=== PATIENT | female | born 1960 | race African-American/Black ===

== ENCOUNTER 2020-08-31 10:20 | Outpatient (REF) | payer MEDICAID, SELFPAY ==
--- NOTE | 2020-08-31 | MM_ITS ---
EXAMINATION: MM SCREENING DIGITAL BREAST TOMOSYNTHESIS, BILATERAL CLINICAL INFORMATION: Screening. Asymptomatic. The lifetime risk of breast cancer based on the Tyrer-Cuzick Model is 5.2%. COMPARISON: Mammography: September 22, 2018 and studies dating back to March 18, 2006 TECHNIQUE: Digital breast tomosynthesis is performed in both the craniocaudal and mediolateral oblique views along with computer-aided detection (CAD). Synthesized 2D images are generated from the tomosynthesis. FINDINGS: There are scattered areas of fibroglandular density (ACR BI-RADS breast composition Category b). There are no significant masses, abnormal calcifications, or other abnormalities. Stable circumscribed density seen within the central lateral aspect of the right breast. MM/MM tomosynthesis screening BI IMPRESSION: There are no significant changes from prior study. ASSESSMENT: BI-RADS 1: Negative RECOMMENDATION: Routine annual mammography screening. This patient's information was entered into a reminder system with a target due date for their next mammogram.
== END 2020-08-31 10:21 | disposition home or self-care (01) ==
LOC: HO.MAMMO 10:20
PROVIDERS: Visit Provider Family Medicine
DX: Z12.31 Encounter for screening mammogram for malignant neoplasm of breast (principal)
CPT/HCPCS: 77063; 77067

== ENCOUNTER → 2020-09-21 12:17 | Outpatient (BNVA) | payer MEDICAID, SELFPAY | PROVIDERS: PCP Family Medicine; Referring Provider Family Medicine; Visit Provider Urology | DX: Z76.89 Persons encountering health services in other specified circumstances (principal) ==

== ENCOUNTER 2020-09-27 09:15 | Outpatient (REF) | payer MEDICAID, SELFPAY ==
--- NOTE | 2020-09-27 | US_ITS ---
EXAMINATION: US RETROPERITONEAL LIMITED (RENAL ONLY) CLINICAL INFORMATION: Kidney cyst. Hematuria. COMPARISON: Renal ultrasound 06/15/2020. Ultrasound abdomen complete 12/09/2019. TECHNIQUE: Real-time imaging of the kidneys. FINDINGS: RIGHT KIDNEY: 12.5 x 4.4 x 4.6 cm (SAG x AP x TRV). The kidney is normal in size, contour, and echogenicity. Renal cortical thickness is normal. No renal calculi or hydronephrosis. There is anechoic cyst with septation upper pole measuring 4.1 x 4.9 x 3.7 cm. On last ultrasound exam it measured 3.6 x 4.8 x 3.4 cm. A midpole cyst measures 0.8 x 0.5 x 0.7 cm. It appears new. LEFT KIDNEY: 10.6 x 5.6 x 6.2 cm (SAG x AP x TRV). The kidney is normal in size, contour, and echogenicity. Renal cortical thickness is normal. No calculi or focal parenchymal lesions. No hydronephrosis. US/US renal BI IMPRESSION: Septated cyst upper pole right kidney, stable. New cyst midpole right kidney. The left kidney is unremarkable.
== END 2020-09-27 09:16 | disposition home or self-care (01) ==
LOC: HO.US 09:15
PROVIDERS: Visit Provider General Practice
DX: R10.9 Unspecified abdominal pain (principal); R31.29 Other microscopic hematuria; N28.1 Cyst of kidney, acquired
CPT/HCPCS: 76775

== ENCOUNTER 2020-12-07 16:24 | Emergency (ER) | payer MEDICAID, SELFPAY ==
[2020-12-07 19:41] VITALS: BP 122/63; PULSE 64; RESP 18; TEMP 37.7; O2SAT 99; BMI 30.4
[2020-12-07 20:02] VITALS: BP 133/73; PULSE 57; RESP 18; TEMP 37.2; O2SAT 99
[2020-12-07 20:15] LABS: COVID-19 Test Positive (Negative); IDNOW Serial# 9DD0AD1C
--- NOTE | 2020-12-07 20:34 | ED_ITS ---
HPI - Abdominal Pain General Chief Complaint: Abdominal Pain Stated Complaint: ABD PAIN Time Seen by Provider: 12/07/20 20:05 Source: patient Mode of arrival: ambulatory Limitations: no limitations History of Present Illness HPI narrative: 60-year-old female has been having upper abdominal pain, nausea, decreased p.o. intake, generalized body ache for the past week, patient was evaluated at the clinic and was told that the stomach virus, patient had several COVID testing done and was negative. No diarrhea, no lower abdominal pain, no chest pain. Patient if she tried to take a deep breath feels tightness/wheezing. Related Data Previous Rx's Medication Instructions Recorded omeprazole magnesium [Prilosec OTC] 20 mg PO BID #30 tab 12/07/20 Allergies Allergy/AdvReac Type Severity Reaction Status Date / Time ENVIRONMENTAL Allergy Intermediate UPPER Uncoded 07/06/20 15:03 RESPIRATORY IRRITATION Review of Systems Review of Systems All other systems are reviewed and are negative Constitutional: Reports as per HPI and Reports no additional constitutional complaints Eyes: Reports as per HPI and Reports no additional eye complaints Reports system reviewed and no additional complaints, except as documented Cardiovascular: Reports as per HPI and Reports no additional cardiovascular complaints Respiratory: Reports as per HPI and Reports no additional respiratory complaints Gastrointestinal: Reports as per HPI and Reports no additional gastrointestinal complaints Genitourinary: Reports no additional female genitourinary complaints Musculoskeletal: Reports no additional musculoskeletal complaints Skin/Breast: Reports system reviewed and no additional complaints, except as docu Psychiatric: Reports no additional psychiatric complaints Endocrine: Reports no additional endocrine complaints Hematologic/Lymphatic: Reports no additional hematologic/lymphatic complaints Allergic/Immunologic: Reports no additional allergic/immunologic complaints Reports system reviewed and no additional complaints, except as documented and Reports Abnormal speech present Physical Exam Vital Signs: Vital Signs: Last Vital Signs Temp 99.0 F 12/07/20 20:02 Pulse 56 12/07/20 21:15 Resp 18 12/07/20 21:15 BP 122/61 12/07/20 21:15 Pulse Ox 100 12/07/20 21:15 Body Mass Index 30.4 Vital signs have been reviewed as appeared to be correct. Blood pressure normal. Heart rate normal. Respiration rate normal. Temperature normal. Oxygen saturation normal. Appearance: Alert. Oriented X3. No acute distress. Head: Normal external exam. Normocephalic. Atraumatic. No Cesar signs noted. No raccoon eyes noted Eyes: PERRLA. EOMI. Conjunctiva and sclera normal. Eyelids normal. ENT: TM's Normal. Pharynx normal. Uvula midline. Moist mucous membranes. No trismus noted. No drooling noted. No muffled voice noted. Neck: Normal inspection. Neck supple. FROM. No adenopathy. Thyroid Normal. No meningeal signs. No neck mass noted. CVS: Normal heart rate and rhythm. Heart sound normal. No murmurs noted. Pulses normal throughout. Respiratory: No respiratory distress. Painless inspiration. Breath sounds normal. No wheezes/rales/rhonchi noted. Chest nontender. No accessory muscle usage noted or decreased air movement noted. Abdomen: Soft with mild tenderness in the epigastric area with no rebound or guarding.. Bowel sounds normal in all 4 quadrants. No distention noted. No organomegaly noted. No visible injury noted. Back: No CVA tenderness. Full range of motion noted. Skin: Skin warm and dry. Normal skin color. Normal skin turgor. No rashes/lesions/lacerations noted. Extremities: No lower extremity edema. Extremities exhibit normal range of motion. Extremities nontender. Neuro: Oriented X 3. No motor deficit. No sensory deficit. Reflexes normal. Course Course Course Narrative: Assessment and plan. 1. Patient tested positive for COVID patient is taking care of her 16-year-old son who is down syndrome and required care patient was advised to self quarantine and isolate herself and for for family or friends to help with caring of her son. Also was advised to test the sun for COVID tomorrow. 2. UA was positive for nitrate but no leuko Estrace was some white blood cells in the urine but patient declined any symptoms of urine infection therefore patient was instructed to drink plenty of fluid we are not going to treat with antibiotic at this point unless if patient develops symptoms. 3. Gastritis patient improved with Pepcid/a GI cocktail in the emergency department will discharge home with Prilosec and follow up with manager financial in 2-3 weeks (after finisher self-quarantine). MDM - Abdominal Pain Lab Data Result diagrams: 12/07/20 20:48 12/07/20 21:20 Labs: Lab Results 12/07/20 12/07/20 12/07/20 Range/Units 19:53 20:41 20:48 WBC 4.6 L (4.8-10.8) X10*3/uL RBC 4.79 (4.20-5.50) X10*6/uL Hgb 13.8 (12.0-16.0) g/dl Hct 42.1 (37-47) % MCV 87.9 (80-98) fL MCH 28.8 (27.0-33.0) pg MCHC 32.8 (31.0-35.0) g/dl RDW 11.9 (11.0-16.0) % Plt Count 180 (160-400) X10*3/uL MPV 10.5 (9.4-12.3) fL Immature Gran % (Auto) 0.2 (0.0-0.4) % Neut % (Auto) 62.0 (45-73) % Lymph % (Auto) 29.3 (20-40) % Barnes % (Auto) 8.3 (2-11) % Eos % (Auto) 0.0 (0-4) % Baso % (Auto) 0.2 (0-2) % Lymph # (Auto) 1.3 (1.2-4.9) X10*3/uL Barnes # (Auto) 0.4 (0.1-1.2) X10*3/uL Eos # (Auto) 0.0 (0.0-0.4) X10*3/uL Baso # (Auto) 0.0 (0.0-0.2) X10*3/uL Abs Immat Gran (auto) 0.01 (0.00-0.03) X10*3/uL Absolute Neuts (auto) 2.8 (2.0-8.3) X10*3/uL Absolute Nucleated RBC 0.000 (0.0-0.012) X10*3/uL Nucleated RBC % (auto) 0.0 (0.0-0.2) /100WBC Sodium (135-145) mmol/L Potassium (3.3-5.1) mmol/L Chloride (96-108) mmol/L Carbon Dioxide (22-29) mmol/L Anion Gap (12-20) BUN (9-16) mg/dL Creatinine (0.5-1.4) mg/dL Estim Creat Clear Calc Estimated GFR Random Glucose (60-115) mg/dL Calcium (8.4-10.2) mg/dL Total Bilirubin (0.0-1.0) mg/dL Direct Bilirubin (0.0-0.5) mg/dL AST (5-31) U/L ALT (0-31) U/L Alkaline Phosphatase (39-117) U/L Troponin I High Sens (<3.5-17.0) ng/L Total Protein (6.5-8.0) g/dL Albumin (3.5-5.0) g/dL Lipase (8-78) U/L Urine Color YELLOW Urine Appearance CLOUDY Urine pH 6.0 (5.0-8.0) Ur Specific [place] >= 1.030 H (1.005-1.025) Urine Protein TRACE (NEG-TRACE) MG/DL Urine Glucose (UA) NEG (NEG) MG/DL Urine Ketones 40 (NEG) MG/DL Urine Blood 2+ H (NEG) Urine Nitrite POS H (NEG) Ur Leukocyte Esterase NEG (NEG) Urine RBC 1-4 (0) /HPF Urine WBC 5-9 H (0-4) /HPF Ur Squamous Epith Cells TRACE /LPF Urine Bacteria 3+ /LPF COVID-19 ([facility]) Positive A (Negative) COVID-19 Clin Com See Note 12/07/20 12/07/20 Range/Units 20:48 21:20 WBC (4.8-10.8) X10*3/uL RBC (4.20-5.50) X10*6/uL Hgb (12.0-16.0) g/dl Hct (37-47) % MCV (80-98) fL MCH (27.0-33.0) pg MCHC (31.0-35.0) g/dl RDW (11.0-16.0) % Plt Count (160-400) X10*3/uL MPV (9.4-12.3) fL Immature Gran % (Auto) (0.0-0.4) % Neut % (Auto) (45-73) % Lymph % (Auto) (20-40) % Barnes % (Auto) (2-11) % Eos % (Auto) (0-4) % Baso % (Auto) (0-2) % Lymph # (Auto) (1.2-4.9) X10*3/uL Barnes # (Auto) (0.1-1.2) X10*3/uL Eos # (Auto) (0.0-0.4) X10*3/uL Baso # (Auto) (0.0-0.2) X10*3/uL Abs Immat Gran (auto) (0.00-0.03) X10*3/uL Absolute Neuts (auto) (2.0-8.3) X10*3/uL Absolute Nucleated RBC (0.0-0.012) X10*3/uL Nucleated RBC % (auto) (0.0-0.2) /100WBC Sodium 138 (135-145) mmol/L Potassium 3.8 (3.3-5.1) mmol/L Chloride 103 (96-108) mmol/L Carbon Dioxide 28 (22-29) mmol/L Anion Gap 11 L (12-20) BUN 12 (9-16) mg/dL Creatinine 0.77 (0.5-1.4) mg/dL Estim Creat Clear Calc 88.5 Estimated GFR > 60 Random Glucose 86 (60-115) mg/dL Calcium 7.9 L (8.4-10.2) mg/dL Total Bilirubin 0.5 (0.0-1.0) mg/dL Direct Bilirubin 0.2 (0.0-0.5) mg/dL AST 22 (5-31) U/L ALT 19 (0-31) U/L Alkaline Phosphatase 95 (39-117) U/L Troponin I High Sens 9.1 (<3.5-17.0) ng/L Total Protein 6.3 L (6.5-8.0) g/dL Albumin 3.7 (3.5-5.0) g/dL Lipase 13 (8-78) U/L Urine Color Urine Appearance Urine pH (5.0-8.0) Ur Specific [place] (1.005-1.025) Urine Protein (NEG-TRACE) MG/DL Urine Glucose (UA) (NEG) MG/DL Urine Ketones (NEG) MG/DL Urine Blood (NEG) Urine Nitrite (NEG) Ur Leukocyte Esterase (NEG) Urine RBC (0) /HPF Urine WBC (0-4) /HPF Ur Squamous Epith Cells /LPF Urine Bacteria /LPF COVID-19 ([facility]IS) (Negative) COVID-19 Clin Com Discharge Plan Discharge Clinical Impression: COVID-19 virus infection Gastritis Qualifiers: Gastritis type: unspecified gastritis Chronicity: acute Gastritis bleeding: without bleeding Qualified Code(s): K29.00 - Acute gastritis without bleeding Patient Disposition: Home, Self-Care Instructions: Gastritis (ED), COVID-19 (Coronavirus Disease 2019) (ED) Additional Instructions: Self-quarantine/isolation, frequent handwashing, use face mask at all times. Prescriptions: New omeprazole magnesium [Prilosec OTC] 20 mg tablet,delayed release (DR/EC) 20 mg PO BID Qty: 30 RF: 0 Referrals: Colleen Colon DO [Primary Care Provider] - 2 weeks Meng Randall MD [Physician] - 2 days [facility] Past Medical History Medical History Patient denies medical problems Social History Social History Advance Directives: No Advance Directives Information Provided: No
[2020-12-07] MEDS: Magnesium Hydrox/Alum Hydrox 30 ML ORAL.SUSP PO (20:49)
[2020-12-07] MEDS: Lidocaine HCl Viscous 2 % 15 ML SOLUTION 10 ML MUCOUS MEM (20:49)
[2020-12-07] MEDS: Famotidine/PF 20 MG/2 ML VIAL IVPUSH (20:50)
[2020-12-07] MEDS: ondansetron HCL 4 MG/2 ML VIAL IVPUSH (20:50)
[2020-12-07] MEDS: 0.9 % Sodium Chloride 1,000 ML 999 ML IVCONT (20:50)
[2020-12-07 20:56] LABS: MANUAL DIFF FLAG NO
[2020-12-07 20:58] LABS: Glucose Urine UA NEG (NEG); Leukocyte Esterase Urine NEG (NEG); Nitrite Urine POS (NEG); Specific Gravity - Urine >= 1.030 (1.005-1.025); UACC Culture Trigger YES; Urine Blood 2+ (NEG); Urine Ketones 40 MG/DL (NEG); Urine Protein TRACE MG/DL (NEG-TRACE)
[2020-12-07 20:59] LABS: Appearance Urine CLOUDY; Color Urine YELLOW
[2020-12-07 21:02] LABS: Basophils Percent Auto 0.2 % (0-2); Hematocrit 42.1 % (37-47); Hemoglobin 13.8 g/dl (12.0-16.0); Imm Gran Abs Auto 0.01 X10*3/uL (0.00-0.03); Imm Gran Pct Auto 0.2 % (0.0-0.4); Lymphocytes Absolute Auto 1.3 X10*3/uL (1.2-4.9); Lymphocytes Percent Auto 29.3 % (20-40); Mean Corpuscular HGB Conc 32.8 g/dl (31.0-35.0); Mean Corpuscular Hemoglobin 28.8 pg (27.0-33.0); Mean Corpuscular Volume 87.9 fL (80-98); Mean Platelet Volume 10.5 fL (9.4-12.3); Monocytes Absolute Auto 0.4 X10*3/uL (0.1-1.2); Monocytes Percent Auto 8.3 % (2-11); Neutrophils Absolute Auto 2.8 X10*3/uL (2.0-8.3); Platelet Count 180 X10*3/uL (160-400); Red Blood Count 4.79 X10*6/uL (4.20-5.50); Red Cell Distribution Width 11.9 % (11.0-16.0); White Blood Count 4.6 X10*3/uL (4.8-10.8)
[2020-12-07 21:13] LABS: Bacteria Urine 3+ /LPF; Squamous Epithelial Cell Urine TRACE /LPF
[2020-12-07 21:15] VITALS: BP 122/61; PULSE 56; RESP 18; O2SAT 100
[2020-12-07 21:37] LABS: Troponin-I High Sensitivity 9.1 ng/L (<3.5-17.0)
[2020-12-07 21:55] LABS: Alanine Aminotransferase 19 U/L (0-31); Albumin Level 3.7 g/dL (3.5-5.0); Alkaline Phosphatase 95 U/L (39-117); Anion Gap 11 (12-20); Aspartate Amino Transferase 22 U/L (5-31); Bilirubin Direct 0.2 mg/dL (0.0-0.5); Bilirubin Total 0.5 mg/dL (0.0-1.0); Blood Urea Nitrogen 12 mg/dL (9-16); Calcium 7.9 mg/dL (8.4-10.2); Carbon Dioxide 28 mmol/L (22-29); Chloride 103 mmol/L (96-108); Creatinine Clr Calc Pharmacy 88.5; Estimated Glomerular Filt Rate > 60; Glucose Random 86 mg/dL (60-115); Lipase 13 U/L (8-78); Potassium 3.8 mmol/L (3.3-5.1); Sodium 138 mmol/L (135-145); Total Protein 6.3 g/dL (6.5-8.0)
[2020-12-07 22:57] VITALS: BP 139/70; PULSE 62; RESP 16; O2SAT 97
== END 2020-12-07 23:20 | disposition home or self-care (01) ==
PROVIDERS: Emergency Provider Emergency Medicine; PCP Family Medicine
DX: U07.1 COVID-19 (principal); K29.00 Acute gastritis without bleeding
CPT/HCPCS: 36415; 80048; 80076; 81001; 81003; 83690; 84484; 85025; 87086; 87635; 96361; 96374; 96375; 99284; J2405

== ENCOUNTER 2021-08-16 09:02 | Outpatient (REF) | payer MEDICAID, SELFPAY ==
--- NOTE | ~2021-08-16 | MR_ITS ---
EXAMINATION: MR LUMBAR SPINE WITHOUT CONTRAST CLINICAL INFORMATION: Persistent low back pain radiating into lower extremities. COMPARISON: Lumbar spine radiographs 11/17/2019. TECHNIQUE: MRI of the lumbar spine was obtained using routine sequences without contrast. FINDINGS: Alignment is normal. Vertebral body heights are preserved. No acute bone marrow signal changes. There is slight loss of intervertebral disc height and T2 signal intensity at L5-S1 related to disc degeneration. The tip of the conus medullaris is located at L1-L2. No mass effect on the conus. Visualized distal cord signal intensity is normal. At L1-L2 and L2-L3 the annular contours are normal. No canal or neuroforaminal compromise at these 2 levels. At L3-L4 there is a slightly bulging disc and bilateral facet degenerative change. No canal stenosis. Asymmetric narrowing of the left subarticular zone causing subtle abutment on the left traversing L4 nerve roots. No foraminal nerve root compression. At L4-L5 there is a slightly bulging disc. Bilateral facet degenerative change. No canal stenosis. Asymmetric narrowing of the left subarticular zone causes abutment of left traversing L5 nerve roots. No foraminal nerve root compression. At L5-S1 there is a large central extrusion causing compression of both traversing S1 nerve roots. There is mild mass effect on the left L5 foraminal nerve root. Limited visualization of the retroperitoneal anatomy reveals a large well marginated benign-appearing cystic lesion near the upper pole of the right kidney. Psoas and paraspinal muscle groups are symmetric. MR/MR lumbar spine wo con IMPRESSION: There is a large central extrusion at L5-S1 causing compression of both traversing S1 nerve roots. There is also partial effacement of perineural fat at this level with mild mass effect on the left L5 foraminal nerve root. Otherwise no canal or neuroforaminal compromise within the lumbar spine.
== END 2021-08-16 09:03 | disposition home or self-care (01) ==
LOC: HO.MRI 09:02
PROVIDERS: PCP Family Medicine; Visit Provider Family Medicine
DX: M54.42 Lumbago with sciatica, left side (principal)
CPT/HCPCS: 72148

== ENCOUNTER 2021-09-18 09:55 | Outpatient (REF) | payer MEDICAID, SELFPAY ==
--- NOTE | ~2021-09-18 | US_ITS ---
EXAMINATION: US RETROPERITONEAL LIMITED (RENAL ONLY) CLINICAL INFORMATION: Calculus of kidney. COMPARISON: Renal ultrasound 09/27/2020 and 06/15/2020. TECHNIQUE: Real-time imaging of the kidneys. FINDINGS: RIGHT KIDNEY: 12.0 x 4.4 x 4.0 cm (SAG x AP x TRV). The kidney is normal in size, contour, and echogenicity. Renal cortical thickness is normal. No renal calculi or hydronephrosis. There is anechoic septated cyst in the upper pole laterally measuring 4.7 x 4.8 x 4.3 cm. Previously it measured 4.1 x 4.9 x 2.7 seen. Anechoic cyst with posterior wall in the mid pole measures 0.9 x 0.8 x 0.7 cm. There is calcification visualized at this time and likely a complex cyst. Previously it measured 0.8 x 0.5 x 0.7 cm. LEFT KIDNEY: 10.3 x 5.1 x 4.5 cm (SAG x AP x TRV). The kidney is normal in size, contour, and echogenicity. Renal cortical thickness is normal. No calculi or focal parenchymal lesions. No hydronephrosis. US/US renal BI IMPRESSION: 2 complex cysts in the upper pole and midpole right kidney. No echogenic stones or hydronephrosis in either kidney.
== END 2021-09-18 09:56 | disposition home or self-care (01) ==
LOC: HO.US 09:55
PROVIDERS: PCP Family Medicine; Visit Provider Urology
DX: N20.0 Calculus of kidney (principal); N28.1 Cyst of kidney, acquired
CPT/HCPCS: 76775

== ENCOUNTER 2022-01-23 10:15 | Outpatient (REF) | payer MEDICAID, SELFPAY ==
--- NOTE | ~2022-01-23 | MM_ITS ---
EXAMINATION: MM SCREENING DIGITAL BREAST TOMOSYNTHESIS, BILATERAL CLINICAL INFORMATION: Screening. Asymptomatic. The lifetime risk of breast cancer based on the Tyrer-Cuzick Model is 5%. COMPARISON: Mammography: 08/31/2020, 09/22/2018, 08/13/2017 TECHNIQUE: Digital breast tomosynthesis is performed in both the craniocaudal and mediolateral oblique views along with computer-aided detection (CAD). Synthesized 2D images are generated from the tomosynthesis. FINDINGS: There are scattered areas of fibroglandular density (ACR BI-RADS breast composition Category b). There are no significant masses, abnormal calcifications, or other abnormalities. Parenchymal pattern is similar to prior studies. No developing density. MM/MM tomosynthesis screening BI IMPRESSION: No mammographic evidence of malignancy. ASSESSMENT: BI-RADS 1: Negative RECOMMENDATION: Routine annual mammography screening. This patient's information was entered into a reminder system with a target due date for their next mammogram.
== END 2022-01-23 10:16 | disposition home or self-care (01) ==
LOC: HO.MAMMO 10:15
PROVIDERS: Visit Provider Family Medicine
DX: Z12.31 Encounter for screening mammogram for malignant neoplasm of breast (principal)
CPT/HCPCS: 77063; 77067

== ENCOUNTER 2022-04-27 08:14 | Emergency (ER) | payer MEDICAID, SELFPAY ==
--- NOTE | ~2022-04-27 | XR_ITS ---
EXAMINATION: XR CHEST CLINICAL INFORMATION: Chest pain COMPARISON: CXR from 04/02/2019 TECHNIQUE: Frontal view of the chest was obtained. FINDINGS: Lungs are well-inflated and clear. Trachea is midline in position. No interstitial disease, consolidation or mass. No pleural effusion or pneumothorax. Cardiac silhouette and pulmonary vessels are normal in size. The mediastinum and sonja have normal contour. The visualized bones and upper abdomen are unremarkable. XR/XR chest 1V IMPRESSION: No acute cardiopulmonary abnormality.
[2022-04-27 08:17] VITALS: BP 137/72; PULSE 63; RESP 18; TEMP 36.8; O2SAT 99; BMI 32.5
--- NOTE | 2022-04-27 08:18 | ECG_ITS ---
Test Reason : CHEST PAIN Blood Pressure : / mmHG Vent. Rate : 057 BPM Atrial Rate : 057 BPM P-R Int : 154 ms QRS Dur : 080 ms QT Int : 416 ms P-R-T Axes : 019 -20 -02 degrees QTc Int : 404 ms Sinus bradycardia Minimal voltage criteria for LVH, may be normal variant ( R in aVL ) Borderline ECG When compared with ECG of 25-APR-2016 13:30, Nonspecific T wave abnormality no longer evident in Anterior leads Referred By: Generic ED Physician Electronically Signed By:Jefry Murillo
[2022-04-27 10:07] LABS: Hematocrit 38.7 % (37.0-47.0); Hemoglobin 12.8 g/dl (12.0-16.0); Mean Corpuscular HGB Conc 33.1 g/dl (31.0-35.0); Mean Corpuscular Hemoglobin 28.3 pg (27.0-33.0); Mean Corpuscular Volume 85.4 fL (80.0-98.0); Mean Platelet Volume 10.3 fL (9.4-12.3); Platelet Count 218 X10*3/uL (160-400); Red Blood Count 4.53 X10*6/uL (4.20-5.50); Red Cell Distribution Width 12.6 % (11.0-16.0); White Blood Count 7.4 X10*3/uL (4.8-10.8)
[2022-04-27 10:35] LABS: Anion Gap 12 (12-20); Blood Urea Nitrogen 17 mg/dL (9-16); Calcium 9.3 mg/dL (8.4-10.2); Carbon Dioxide 27 mmol/L (22-29); Chloride 104 mmol/L (96-108); Creatinine Clr Calc Pharmacy 74.8; Estimated Glomerular Filt Rate > 60; Glucose Random 97 mg/dL (60-115); Potassium 4.4 mmol/L (3.3-5.1); Sodium 139 mmol/L (135-145)
[2022-04-27 10:40] LABS: Troponin-I High Sensitivity 5.4 ng/L (<3.5-17.0)
--- NOTE | 2022-04-27 10:57 | ED_ITS ---
HPI - Chest Pain General Chief Complaint: Chest Pain Stated Complaint: chest pain on left side Time Seen by Provider: 04/27/22 10:57 History of Present Illness HPI narrative: Patient complains of left-sided chest pain worse with movement and when she touches it on the left side of her chest, it started at 04:00 o'clock in the morning and has been continuous not waxing and waning The pain is a sharp pain pain with no associated symptoms, no dizziness, no fainting no feeling faint no palpitations no shortness of breath no exertional symptoms no sweating from the forehead no nausea no vomiting The pain continues unchanged on arrival to the ER, she does have a history of a similar episode in the past She also has a history of a slow heart rate and has been seen by Cardiology for this and was told it is normal for her and most likely genetic Related Data Previous Rx's Medication Instructions Recorded omeprazole magnesium 20 mg 20 mg PO BID #30 tabs 12/07/20 tablet,delayed release (Prilosec OTC) omeprazole magnesium 20 mg 20 mg PO BID #30 tabs 12/07/20 tablet,delayed release (Prilosec OTC) acetaminophen 500 mg tablet 1,000 mg PO QID PRN pain #30 tabs 04/27/22 naproxen 500 mg tablet (Naprosyn) 500 mg PO BID PRN pain #14 tabs 04/27/22 Allergies Allergy/AdvReac Type Severity Reaction Status Date / Time ENVIRONMENTAL Allergy Intermediate UPPER Uncoded 07/06/20 15:03 RESPIRATORY IRRITATION Review of Systems Review of Systems: Positive for left-sided chest pain Negatives are no fever no chills no dizziness weakness no fainting no feeling faint no nausea no vomiting no sweating no diaphoresis no relation to exertion no shortness of breath no difficulty breathing no abdominal pain no nausea vomiting or diarrhea no leg swelling no calf pain no skin rash no numbness or weakness Yes all other systems are reviewed and are negative PMFSH Past Medical History Source: nursing notes reviewed Medical History Patient denies medical problems Social History Social History Advance Directives: Yes Advance Directives Information Provided: Yes Advance Directives on File: No Physical Exam Vital Signs: Vital Signs: Last Vital Signs Temp 98.2 F 04/27/22 08:17 Pulse 63 04/27/22 08:17 Resp 18 04/27/22 08:17 BP 137/72 04/27/22 08:17 Pulse Ox 99 04/27/22 08:17 O2 Del Method 04/27/22 08:17 BMI result Body Mass Index 32.5 General appearance is comfortable no acute distress The eyes pupils equal round reactive to light The neck is supple The chest is clear to auscultation bilateral There is tenderness to the left side of the chest just above the breast, with no skin changes, pain is also reproduced with twisting certain ways which causes pain in that area of her chest, there was no pleuritic component it did not hurt to take a deep breath Heart no murmur auscultated The abdomen soft nontender The extremities no edema no calf tenderness no calf swelling The skin no diaphoresis no rashes Neuro no focal deficits Course Course Course Narrative: Initial EKG was a normal sinus rhythm with a rate of 64, normal intervals, there are no acute ischemic changes no acute ST elevations no acute T-wave changes, EKG was compared with EKG done April 2016 and was the same Chest x-ray was normal Initial troponin was 5.4 and repeat was 4.7 No other significant lab abnormality Patient remains comfortable with mild reproducible chest pain throughout visit, on vital sign check her pulse was now 44 with no associated symptoms and EKG was done which showed a sinus bradycardia rate 45 and again without any evidence of any acute ischemic changes Case was discussed withdr tobias was in agreement that this is very unlikely an acute ischemic event and advised discharge the patient after consulting with her academic records specialist I consulted the academic records specialist telemetry monitor at [facility] cardiology dr negron who agreed that patient should be discharged and follow with primary doctor and Cardiology and this is likely musculoskeletal MDM - Chest Pain Lab Data Result diagrams: 04/27/22 09:52 04/27/22 09:52 Labs: Lab Results 04/27/22 04/27/22 04/27/22 Range/Units 09:52 09:52 09:52 WBC 7.4 (4.8-10.8) X10*3/uL RBC 4.53 (4.20-5.50) X10*6/uL Hgb 12.8 (12.0-16.0) g/dl Hct 38.7 (37.0-47.0) % MCV 85.4 (80.0-98.0) fL MCH 28.3 (27.0-33.0) pg MCHC 33.1 (31.0-35.0) g/dl RDW 12.6 (11.0-16.0) % Plt Count 218 (160-400) X10*3/uL MPV 10.3 (9.4-12.3) fL Absolute Nucleated RBC 0.000 (0.0-0.012) X10*3/uL Nucleated RBC % (auto) 0.0 (0.0-0.2) /100WBC Sodium 139 (135-145) mmol/L Potassium 4.4 (3.3-5.1) mmol/L Chloride 104 (96-108) mmol/L Carbon Dioxide 27 (22-29) mmol/L Anion Gap 12 (12-20) BUN 17 H (9-16) mg/dL Creatinine 0.90 (0.5-1.4) mg/dL Estim Creat Clear Calc 74.8 Estimated GFR > 60 Random Glucose 97 (60-115) mg/dL Calcium 9.3 D (8.4-10.2) mg/dL Troponin I High Sens 5.4 (<3.5-17.0) ng/L 04/27/22 Range/Units 13:28 WBC (4.8-10.8) X10*3/uL RBC (4.20-5.50) X10*6/uL Hgb (12.0-16.0) g/dl Hct (37.0-47.0) % MCV (80.0-98.0) fL MCH (27.0-33.0) pg MCHC (31.0-35.0) g/dl RDW (11.0-16.0) % Plt Count (160-400) X10*3/uL MPV (9.4-12.3) fL Absolute Nucleated RBC (0.0-0.012) X10*3/uL Nucleated RBC % (auto) (0.0-0.2) /100WBC Sodium (135-145) mmol/L Potassium (3.3-5.1) mmol/L Chloride (96-108) mmol/L Carbon Dioxide (22-29) mmol/L Anion Gap (12-20) BUN (9-16) mg/dL Creatinine (0.5-1.4) mg/dL Estim Creat Clear Calc Estimated GFR Random Glucose (60-115) mg/dL Calcium (8.4-10.2) mg/dL Troponin I High Sens 4.7 (<3.5-17.0) ng/L Discharge Plan Discharge Clinical Impression: Chest pain Patient Disposition: Home, Self-Care Additional Instructions: EKG did not show any evidence of a heart attack Blood tests again did not show signs of a heart attack and your history and physical exam are not consistent with heart attack Case was discussed with academic records specialist at [facility] who also agreed that this is likely musculoskeletal pain in the chest wall as it is easy to reproduce and okay to follow as an outpatient with her academic records specialist and DrGema Return any time for worsening chest pain, exertional symptoms, shortness of breath, fainting or feeling faint, any worse condition or any concerns Prescriptions: New acetaminophen 500 mg tablet 1,000 mg PO QID PRN (Reason: pain) Qty: 30 0RF naproxen [Naprosyn] 500 mg tablet 500 mg PO BID PRN (Reason: pain) Qty: 14 0RF No Action omeprazole magnesium [Prilosec OTC] 20 mg tablet,delayed release (DR/EC) 20 mg PO BID Qty: 30 0RF omeprazole magnesium [Prilosec OTC] 20 mg tablet,delayed release (DR/EC) 20 mg PO BID Qty: 30 0RF
--- NOTE | 2022-04-27 13:31 | ECG_ITS ---
Test Reason : BRADYCARDIA Blood Pressure : / mmHG Vent. Rate : 045 BPM Atrial Rate : 045 BPM P-R Int : 198 ms QRS Dur : 080 ms QT Int : 462 ms P-R-T Axes : 029 -22 -21 degrees QTc Int : 399 ms Sinus bradycardia Minimal voltage criteria for LVH, may be normal variant ( R in aVL ) Nonspecific T wave abnormality Abnormal ECG When compared with ECG of 27-APR-2022 08:14, Nonspecific T wave abnormality now evident in Anterior leads Referred By: Jorge Hennessy Electronically Signed By:Jefry Murillo
[2022-04-27 13:55] LABS: Troponin-I High Sensitivity 4.7 ng/L (<3.5-17.0)
[2022-04-27] MEDS: Ibuprofen 600 MG TABLET PO (14:44)
== END 2022-04-27 14:56 | disposition home or self-care (01) ==
PROVIDERS: Physician Assistant Medical; Emergency Provider Emergency Medicine; PCP Family Medicine
DX: R07.9 Chest pain, unspecified (principal)
CPT/HCPCS: 36415; 71045; 80048; 84484; 85027; 93005; 99283; 99284

== ENCOUNTER 2022-05-14 09:57 | Outpatient (REF) | payer MEDICAID, SELFPAY ==
--- NOTE | ~2022-05-14 | XR_ITS ---
EXAMINATION: XR FOOT, RIGHT XR FOOT, LEFT CLINICAL INFORMATION: Pain bilateral feet COMPARISON: Radiographs right foot 01/10/2017. TECHNIQUE: Each foot is imaged in 3 views. There are total of 6 views. FINDINGS: Right: No fracture, dislocation, destructive process. Normal bony mineralization. The retrocalcaneal recess is preserved. There are bulky posterior and plantar calcaneal spurs, increased from prior exam 2017. The midfoot shows some whiskering at the lateral base fifth metatarsal likely related to insertion peroneus longus. There are osteoarthritic changes first MTP with bulky medial osteophytes, bunion, and increased hallux valgus of approximately 25 degrees. There is no erosive change. The remainder of the MTP and interphalangeal joints are unremarkable. Left: No fracture, dislocation, destructive process. Normal bony mineralization. The retrocalcaneal recess is preserved. There are bulky posterior and smaller plantar calcaneal spurs. There are osteoarthritic changes first MTP with bulky medial and smaller lateral osteophytes, bunion, and hallux valgus of approximately 23 degrees. There is no erosive change. The remainder of the MTP and interphalangeal joints are unremarkable. XR/XR foot LT min 3V IMPRESSION: -Bilateral posterior and plantar calcaneal spurs. 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
--- NOTE | ~2022-05-14 | XR_ITS ---
EXAMINATION: XR FOOT, RIGHT XR FOOT, LEFT CLINICAL INFORMATION: Pain bilateral feet COMPARISON: Radiographs right foot 01/10/2017. TECHNIQUE: Each foot is imaged in 3 views. There are total of 6 views. FINDINGS: Right: No fracture, dislocation, destructive process. Normal bony mineralization. The retrocalcaneal recess is preserved. There are bulky posterior and plantar calcaneal spurs, increased from prior exam 2017. The midfoot shows some whiskering at the lateral base fifth metatarsal likely related to insertion peroneus longus. There are osteoarthritic changes first MTP with bulky medial osteophytes, bunion, and increased hallux valgus of approximately 25 degrees. There is no erosive change. The remainder of the MTP and interphalangeal joints are unremarkable. Left: No fracture, dislocation, destructive process. Normal bony mineralization. The retrocalcaneal recess is preserved. There are bulky posterior and smaller plantar calcaneal spurs. There are osteoarthritic changes first MTP with bulky medial and smaller lateral osteophytes, bunion, and hallux valgus of approximately 23 degrees. There is no erosive change. The remainder of the MTP and interphalangeal joints are unremarkable. XR/XR foot RT min 3V IMPRESSION: -Bilateral posterior and plantar calcaneal spurs. 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
== END 2022-05-14 09:58 | disposition home or self-care (01) ==
LOC: HO.XRAY 09:57
PROVIDERS: Absent Provider Emergency Medicine; PCP Family Medicine; Visit Provider Family Medicine
DX: M79.671 Pain in right foot (principal); M79.672 Pain in left foot
CPT/HCPCS: 73630

== ENCOUNTER → 2022-07-24 08:58 | Outpatient (BNVA) | payer MEDICAID, SELFPAY | PROVIDERS: PCP Family Medicine; Referring Provider Family Medicine; Visit Provider Internal Medicine | DX: R07.2 Precordial pain (principal) | CPT/HCPCS: 99202 ==

== ENCOUNTER → 2022-08-15 09:59 | Outpatient (REF) | payer MEDICAID, SELFPAY ==
--- NOTE | 2022-08-15 10:03 | CA_ITS ---
Acquisition Time: 2022-08-15 10:32:40 Total Exercise Time: 00:04:59 Test Indications: cp Medications: see chart Protocol: PETERSON Max HR: 151 BPM 95% of Pred: 158 BPM Max BP: 190/108 mmHG Max Work Load: 6.9 METS Exercise stress test with exercise 4 min 59 sec of Peterson protocol, achieving 95% MPHR, with report of fatigue and request to stop, with mild sob and no chest discomfort, with PACs, isolated PVCs, two ventricular cuplets and one ventricular triplet ( PVCs ocurred during exercise and early recovery), with normotensive response to exercise, without EKG changes meeting criteria for ischemia during exercise, in later recovery there is T wave invesions leads III, aVF, V3-V6. Will order an exercise nuclear stress test for further evaluation. Test reviewed with Dr Meneses. Referred By: Александр Orosco Overread By: EDY RUIZ
== END ==
LOC: HO.CARD 09:59
PROVIDERS: PCP Family Medicine; Visit Provider Internal Medicine
DX: R07.2 Precordial pain (principal)
CPT/HCPCS: 93017

== ENCOUNTER → 2022-09-04 07:41 | Outpatient (REF) | payer MEDICAID, SELFPAY ==
--- NOTE | ~2022-09-04 | NM_ITS ---
Lexiscan Myocardial perfusion study Indication: Chest pain, assess for coronary disease and ischemia Technique: The patient was brought in for a Lexiscan perfusion study on 09/04/2022 and was injected 0.4 mg of Lexiscan intravenously. Within a minute of this injection 30 mCi of sestamibi was given intravenously. Images were obtained using the SPECT gamma camera interlaced with the gating device. Images were obtained in supine position. Resting perfusion study was performed on 09/04/2022. Patient was administered 10 mCi of sestamibi intravenously at rest. Images were then obtained in supine position. Images were processed with the software and compared side to side in short axis, horizontal long axis and vertical long axis views. Total DLP 100mGy-cm. Findings: Raw acquisition reviewed. The stress perfusion study showed mildly diminished tracer uptake in the distal part of anterior wall. There is improvement with CT attenuation correction and hence could be from soft tissue attenuation artifact. The gated study shows normal LV systolic function with calculated LVEF of 56%. LV cavity is normal in size. The gated study shows normal wall thickening and contraction of segments. Resting study shows diminished tracer uptake along the mid to distal anterior wall and appears worse compared to stress acquisition. Probably, artifactual. Gating at rest reveals normal wall motion with ejection fraction at 55%. The findings are consistent with fixed defect in the distal part of anterior wall likely from soft tissue attenuation artifact. No clear reversible defects. NM/NM tonya perf SPECT rest & str Impression: 1. Myocardial perfusion imaging study shows no clear evidence of any ischemia or infarction. Likely normal perfusion. 2. Gated LVEF is 56% during stress and 55% during rest. 3. Transient ischemic dilatation not present. EKG component of the test reported separately.
--- NOTE | 2022-09-04 07:45 | CA_ITS ---
Acquisition Time: 2022-09-04 09:01:45 Total Exercise Time: 00:05:01 Test Indications: Chest Pain Medications: ASA CETIRIZINE Protocol: PETERSON Max HR: 153 BPM 96% of Pred: 158 BPM Max BP: 186/080 mmHG Max Work Load: 6.1 METS Exercise stress test with exercise 5 min 1 sec of Peterson protocol, achieving 96% MPHR, with fatigue, mild to mod sob and need to stop exercise, no chest discomfort, with isolated PACs, atrial cuplets, isolated PVCs, with normotensive response to exercise, with artifact at peak exercise, without EKG changes of ischemia t 41 sec recovery, then with borderline ST depressionsinferolateral leads in recovery. In recovery there were 2 breif episodes of accelerated idioventricular rhythm ( 3 beats, then 6 beats), asymptomatic. Nuclear images pending. Test reviewed with Dr Meneses Referred By: Luann Cosby Overread By: LUANN COSBY
--- NOTE | 2022-09-04 07:45 | CA_ITS ---
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 Normal LV systolic function with grade 1 diastolic dysfunction 2. Normal cardiac valvular Doppler 3. Normal RV systolic pressure 4. No pericardial effusion Findings Left Ventricle Normal left ventricular size, thickness, and systolic function. The visually estimated ejection fraction is between 60-65%. Spectral Doppler is indicative of an impaired relaxation filling pattern. E/E prime ratio is <8, consistent with normal filling pressures. Evidence suggests grade I (mild) diastolic dysfunction. Peak GLS is -20.2%, which is normal Right Ventricle Normal right ventricular cavity size and systolic function. Atria Both atria are normal in size. There is no evidence of interatrial shunt. Aortic Valve Normal aortic valve structure and function. There is no aortic valve stenosis. There is no aortic valve regurgitation. Mitral Valve There is mild anterior mitral leaflet thickening. There is mild mitral valve regurgitation. There is no mitral valve stenosis. Pulmonic Valve The pulmonic valve is likely normal. There is trace pulmonic valve regurgitation. Tricuspid Valve Normal tricuspid valve structure. There is trace tricuspid valve regurgitation. The right ventricular systolic pressure is normal. The right ventricular systolic pressure is 25 mmHg. Normal right atrial pressure. There is no evidence of pulmonary hypertension. Great Vessels All visible segments of the aorta are normal in size. The pulmonary artery was not well visualized. Venous The inferior vena cava is normal in size and collapses greater than 50% with inspiration. Pericardium/Pleural There is no evidence of pericardial effusion. Prior Study Comparison No significant change compared to prior study dated: 07/01/2019. Measurements 2D Linear Measurements Ao Root: 2.80 2.1-3.5 cm LVOT Diam: 1.90 3.0+(-)1.3 cm 2D Volumes LA Vol: 29.20 Mitral Valve MV Pk E: 0.78 MV PK A: 0.84 MV Decel Time: 204.00 E/A: 0.90 E'Lateral: 8.05 E'Medial: 6.31 E/E' Med: 12.30 E/E' Lat: 9.60 PHT: 60.00 MVA PHT: 3.67 Decel [place]: 3.80 Aortic Valve AoV Pk David: 1.50 AoV Mn David: 0.88 AoV VTI: 0.35 AoV Pk Grad: 9.00 Aov Mn Grad: 4.00 ANGELA Cont.VTI: 2.18 LVOT LVOT Pk David: 1.02 LVOT Mn David: 0.65 LVOT VTI: 0.27 LVOT Pk Grad: 4.00 LVOT Mn Grad: 2.00 LVOT Diam: 1.90 LVOT Area: 2.84 Diastolic Function MV Pk E: 0.78 MV Pk A: 0.84 E/A: 0.90 E'Medial: 6.31 E/E' Med: 12.30 E' Laterial: 8.05 E/E' Lat: 9.60 Right Ventricle TAPSE (mm): 28.00 TVS' David: 12.00 Tricuspid Valve TR Pk David: 2.37 TR Pk Grad: 22.00 RA Press: 3.00 RVSP: 25.00 Great Vessels Aorta Ao Root-2D: 2.80 2.0-3.7 cm Ao Asc: 3.20 2.1-3.4 cm Pulmonary Valve PV Pk David: 1.09 Peak PV Grad: 5.00 Updated in Other Vendor System with Status of Final Emerson Meneses MD electronically signed on 09/05/2022 4:56:55 PM with status of Final
== END ==
LOC: HO.CARD 07:41
PROVIDERS: PCP Family Medicine; Visit Provider Nurse Practitioner Family
DX: R07.2 Precordial pain (principal); R94.39 Abnormal result of other cardiovascular function study
CPT/HCPCS: 78452; 93017; 93306; 93356; A9500

== ENCOUNTER 2022-10-01 10:55 | Outpatient (REF) | payer MEDICAID, SELFPAY ==
--- NOTE | ~2022-10-01 | US_ITS ---
EXAMINATION: US RETROPERITONEAL LIMITED (RENAL ONLY) CLINICAL INFORMATION: Cyst of kidney. COMPARISON: Renal ultrasound, most recent 09/18/2021 and 09/27/2020. TECHNIQUE: Real-time imaging of the kidneys. FINDINGS: RIGHT KIDNEY: 11.3 x 5.0 x 8.0 cm (SAG x AP x TRV). The kidney is normal in size, contour, and echogenicity. Renal cortical thickness is normal. There is a 4.9 x 5.7 x 5.1 cm cyst in the upper pole with single thin septation. This is slightly increased in size from previous exams, measuring 4.7 x 4.8 x 4.3 cm on most recent exam August 2021. No wall thickening, mural nodule or solid component is seen. No renal calculi or hydronephrosis. LEFT KIDNEY: 10.8 x 5.7 x 5.4 cm (SAG x AP x TRV). The kidney is normal in size, contour, and echogenicity. Renal cortical thickness is normal. No calculi or focal parenchymal lesions. No hydronephrosis. US/US renal BI IMPRESSION: Slight interval increase in size in complex right renal cyst with single thin septation. Normal left kidney.
== END 2022-10-01 10:56 | disposition home or self-care (01) ==
LOC: HO.US 10:55
PROVIDERS: Visit Provider Family Medicine
DX: N28.1 Cyst of kidney, acquired (principal)
CPT/HCPCS: 76775

== ENCOUNTER 2022-12-10 09:59 | Outpatient (REF) | payer MEDICAID, SELFPAY ==
[2022-12-10 16:36] LABS: Urine Cytology See Pathology rpt
== END 2022-12-10 10:00 | disposition home or self-care (01) ==
LOC: HO.LAB 09:59
PROVIDERS: PCP Family Medicine; Visit Provider Nurse Practitioner Family
DX: R31.29 Other microscopic hematuria (principal); N28.1 Cyst of kidney, acquired
CPT/HCPCS: 88112; 99212

== ENCOUNTER → 2022-12-18 08:56 | Outpatient (BNVA) | payer MEDICAID, SELFPAY | PROVIDERS: PCP Family Medicine; Referring Provider Family Medicine; Visit Provider Internal Medicine | DX: R07.2 Precordial pain (principal) | CPT/HCPCS: 99212 ==

== ENCOUNTER 2022-12-23 07:59 | Outpatient (REF) | payer MEDICAID, SELFPAY ==
--- NOTE | ~2022-12-23 | CT_ITS ---
EXAMINATION: CT ABDOMEN AND PELVIS WITHOUT AND WITH CONTRAST CLINICAL INFORMATION: Microscopic hematuria COMPARISON: None. TECHNIQUE: Noncontrast CT of the abdomen and pelvis is performed followed by split bolus contrast-enhanced images using 85 mL Omnipaque 350 contrast.? Postcontrast imaging is performed during the combined nephrogram and excretion phase. Sagittal and coronal reformatted images were obtained on the technologist's workstation for both the precontrast and postcontrast phases. This CT examination was performed using dose optimization techniques as appropriate, variously including the following: *Automated exposure control *Adjustment of mA and/or kV according to patient size (this includes techniques or standardized protocols for targeted exams where dose is matched to indication/reason for exam; i.e. extremities or head) *Use of iterative reconstruction technique DLP: 878 mGy-cm FINDINGS: LUNG BASES: The visualized lung bases are unremarkable. LIVER, GALLBLADDER, AND BILIARY TREE: The liver is normal in size, shape, and attenuation. There is a 7 mm hypodensity left hepatic lobe axial image 5/3. No additional lesions seen. There is no intrahepatic ductal dilatation. The gallbladder is unremarkable with no evidence of radiopaque gallstones, gallbladder wall thickening, or obvious pericholecystic inflammatory changes. PANCREAS: Unremarkable. SPLEEN: The spleen is unremarkable with small accessory spleen adjacent to the hilum ADRENAL GLANDS: Unremarkable KIDNEYS AND URETERS: The kidneys are normal in size, shape, and attenuation. No hydronephrosis, hydroureter, or calculi seen. No perinephric stranding. There is a mid pole nonenhancing cyst measuring 4 5.4 x 4.8 x 4.3 cm BLADDER: The bladder is partially distended and appears unremarkable. GASTROINTESTINAL TRACT: There is scattered stool and gas seen throughout the colon without significant distention. The small bowel loops are normal caliber. Appendix is normal caliber. ABDOMINAL WALL: No significant hernia is appreciated. LYMPH NODES: Normal. VASCULAR: Unremarkable. PELVIC VISCERA: There is a calcified lesion in the posterior fundus of uterus measuring 1.5 x 1.2 cm consistent fibroid. Uterus is anteverted. No adnexal mass or free fluid seen.. OSSEUS STRUCTURES: There are degenerative disc changes and vacuum disc phenomena L5-S1 disc level. No aggressive lytic or sclerotic process seen. CT/CT urogram IMPRESSION: 1. No radiopaque urolith or hydroureteronephrosis. 2. Moderate size right renal cyst. 3. Calcified uterine fibroid.
[2022-12-23 08:58] LABS: Blood Urea Nitrogen 13 mg/dL (9-16); Estimated Glomerular Filt Rate > 60
[2022-12-23] MEDS: iohexoL 350 MG/ML 100 ML INFUS..BTL IV (11:59)
== END 2022-12-23 08:00 | disposition home or self-care (01) ==
LOC: HO.CT 07:59
PROVIDERS: PCP Family Medicine; Visit Provider Nurse Practitioner Family
DX: R31.29 Other microscopic hematuria (principal); N28.1 Cyst of kidney, acquired
CPT/HCPCS: 36415; 74178; 82565; 84520; Q9967

== ENCOUNTER → 2023-01-02 09:57 | Outpatient (BNVA) | payer MEDICAID, SELFPAY | PROVIDERS: PCP Family Medicine; Visit Provider Urology | DX: R31.29 Other microscopic hematuria (principal); N28.1 Cyst of kidney, acquired; Z87.891 Personal history of nicotine dependence | CPT/HCPCS: 52000; 99212 ==

== ENCOUNTER 2023-02-20 06:27 | Emergency (ER) | payer MEDICAID, SELFPAY ==
[2023-02-20 06:28] VITALS: BP 165/67; PULSE 67; RESP 18; TEMP 36.6; O2SAT 95; BMI 25.1
== END 2023-02-21 06:26 | disposition left against medical advice (07) ==
PROVIDERS: Emergency Provider Emergency Medicine
DX: H57.12 Ocular pain, left eye (principal)
CPT/HCPCS: 99281

== ENCOUNTER 2023-04-09 10:28 | Outpatient (REF) | payer MEDICAID, SELFPAY ==
--- NOTE | ~2023-04-09 | XR_ITS ---
EXAMINATION: XR ANKLE, RIGHT CLINICAL INFORMATION: Pain of 2 weeks' duration, without injury. COMPARISON: Right foot radiographs dated 05/14/2022. TECHNIQUE: AP, lateral, and mortise views of the right ankle. FINDINGS: Bony alignment and mineralization are normal. The ankle mortise is intact. No fracture, dislocation or right ankle joint effusion is seen. Boehler's angle is normal. There are moderately large posterior and moderate plantar calcaneal spurs. There is soft tissue swelling, most pronounced adjacent to the medial malleolus. No soft tissue gas or foreign body is seen. XR/XR ankle LT min 3V IMPRESSION: 1. No fracture, dislocation or right ankle joint effusion is seen. 2. There are calcaneal spurs. 3. There is soft tissue swelling, most pronounced adjacent to the medial malleolus. EXAMINATION: XR ANKLE, LEFT CLINICAL INFORMATION: Pain of 2 weeks' duration, without injury. COMPARISON: Left foot radiographs dated 05/14/2018. TECHNIQUE: AP, lateral, and mortise views of the left ankle. FINDINGS: Bony alignment and mineralization are normal. The ankle mortise is intact. No fracture, dislocation or right ankle joint effusion is seen. There are moderately large posterior and small plantar calcaneal spurs. There is soft tissue swelling, most pronounced adjacent to the medial malleolus. No soft tissue gas or foreign body is seen. IMPRESSION: 1. No fracture, dislocation or left ankle joint effusion is seen. 2. There are calcaneal spurs. 3. There is soft tissue swelling, most pronounced adjacent to the medial malleolus.
--- NOTE | ~2023-04-09 | XR_ITS ---
EXAMINATION: XR ANKLE, RIGHT CLINICAL INFORMATION: Pain of 2 weeks' duration, without injury. COMPARISON: Right foot radiographs dated 05/14/2022. TECHNIQUE: AP, lateral, and mortise views of the right ankle. FINDINGS: Bony alignment and mineralization are normal. The ankle mortise is intact. No fracture, dislocation or right ankle joint effusion is seen. Boehler's angle is normal. There are moderately large posterior and moderate plantar calcaneal spurs. There is soft tissue swelling, most pronounced adjacent to the medial malleolus. No soft tissue gas or foreign body is seen. XR/XR ankle RT min 3V IMPRESSION: 1. No fracture, dislocation or right ankle joint effusion is seen. 2. There are calcaneal spurs. 3. There is soft tissue swelling, most pronounced adjacent to the medial malleolus. EXAMINATION: XR ANKLE, LEFT CLINICAL INFORMATION: Pain of 2 weeks' duration, without injury. COMPARISON: Left foot radiographs dated 05/14/2018. TECHNIQUE: AP, lateral, and mortise views of the left ankle. FINDINGS: Bony alignment and mineralization are normal. The ankle mortise is intact. No fracture, dislocation or right ankle joint effusion is seen. There are moderately large posterior and small plantar calcaneal spurs. There is soft tissue swelling, most pronounced adjacent to the medial malleolus. No soft tissue gas or foreign body is seen. IMPRESSION: 1. No fracture, dislocation or left ankle joint effusion is seen. 2. There are calcaneal spurs. 3. There is soft tissue swelling, most pronounced adjacent to the medial malleolus.
== END 2023-04-09 10:29 | disposition home or self-care (01) ==
LOC: HO.HHCX 10:28
PROVIDERS: Visit Provider Family Medicine
DX: M25.571 Pain in right ankle and joints of right foot (principal); M25.572 Pain in left ankle and joints of left foot
CPT/HCPCS: 73610

== ENCOUNTER 2023-05-25 05:24 | Emergency (ER) | payer MEDICAID, SELFPAY ==
--- NOTE | ~2023-05-25 | XR_ITS ---
EXAMINATION: XR LUMBOSACRAL SPINE CLINICAL INFORMATION: Low back pain. COMPARISON: Lumbar spine radiographs dated 11/17/2019. TECHNIQUE: Three views of the lumbosacral spine. FINDINGS: There is normal lumbar lordosis and spinal alignment. Mild degenerative disc disease is seen at L5-S1. There is no acute fracture or dislocation. The soft tissues are unremarkable. XR/XR lumbar spine 2-3V IMPRESSION: L5-S1 mild degenerative disc disease. No acute abnormality.
--- NOTE | ~2023-05-25 | CT_ITS ---
EXAMINATION: CT abdomen pelvis wo IV con CLINICAL INFORMATION: Left back pain COMPARISON: No prior CT available for comparison. TECHNIQUE: Multidetector volumetric imaging was performed from the superior aspect of the liver through the pubic symphysis , noncontrasted study. Sagittal and coronal reformatted images were obtained on the technologist's workstation. This CT examination was performed using dose optimization techniques as appropriate, variously including the following: *Automated exposure control *Adjustment of mA and/or kV according to patient size (this includes techniques or standardized protocols for targeted exams where dose is matched to indication/reason for exam; i.e. extremities or head) *Use of iterative reconstruction technique DLP: 654 mGy-cm FINDINGS: LOWER THORAX: Included lung bases are clear. HEPATOBILIARY: No focal hepatic lesions. No biliary ductal dilatation. GALLBLADDER: Gallbladder unremarkable. SPLEEN: Spleen normal in size, there is rounded structure adjacent to the spleen 1.8 cm likely splenule. PANCREAS: No focal mass or ductal dilatation. STOMACH AND GASTROINTESTINAL TRACT: Stomach is grossly unremarkable. There are few diverticula of the sigmoid colon, mild diverticulosis, no CT evidence of diverticulitis. Normal size appendix. No CT evidence of appendicitis. ADRENALS: No adrenal nodules. KIDNEYS/URETERS: There is a simple cyst protruding from the middle pole right kidney 6 x 5 cm, the morphology and attenuation of which suggests simple cyst Bosniak class I, no follow-up is required. URINARY BLADDER: Partially decompressed. PELVIC VISCERA: Calcified mass in the uterus 1.4 cm likely necrotic calcified uterine fibroid. PERITONEUM: No free air or fluid. LYMPH NODES: No lymphadenopathy. VASCULAR:Abdominal aorta normal in size, no aneurysm found. BONES, ABDOMINAL WALL AND SOFT TISSUES: There are sclerotic changes around the SI joints bilaterally suggesting sacroiliitis left more than right. Age-appropriate changes of the spine and skeletal system, no destructive osteolytic or osteosclerotic bone lesion found CT/CT abdomen pelvis wo IV con IMPRESSION: * No CT evidence of acute intra-abdominal process to explain patient's pain symptoms. * Diverticulosis without evidence of acute diverticulitis. * Calcified uterine fibroid. * Right renal cyst 6 cm Bosniak class I, no follow-up is required. * Sclerotic changes around the SI joints bilaterally suggesting sacroiliitis this has involved the left more than right side.
--- NOTE | ~2023-05-25 | XR_ITS ---
EXAMINATION: XR HIP, LEFT CLINICAL INFORMATION: Hip pain. COMPARISON: None available. TECHNIQUE: Two views of the left hip. FINDINGS: Mild bilateral hip and mild to moderate pubic symphysis degenerative joint changes are seen. There is no acute fracture or dislocation. The soft tissues are unremarkable. XR/XR hip LT w PEL1V IMPRESSION: Mild bilateral hip and mild to moderate pubic symphysis degenerative joint changes. No acute fracture.
[2023-05-25 05:50] VITALS: BP 146/83; BP 182/116; PULSE 53; PULSE 65; RESP 18; TEMP 36.7; O2SAT 100; O2SAT 99; BMI 33.1
[2023-05-25] MEDS: Ketorolac Tromethamine 30 MG/ML VIAL IM (10:04)
[2023-05-25 10:08] LABS: Appearance Urine Clear; Color Urine Yellow; Glucose Urine UA Negative (Negative); Leukocyte Esterase Urine Negative (Negative); Nitrite Urine Negative (Negative); Specific Gravity - Urine 1.015 (1.005-1.025); UMIC TRIGGER UACC YES; Urine Blood Small (1+) (Negative); Urine Ketones Negative (Negative); Urine Protein Negative (Neg-Trace)
[2023-05-25 10:12] VITALS: BP 153/70; PULSE 89; RESP 16; TEMP 36.6; O2SAT 99
[2023-05-25 10:25] LABS: Bacteria Urine None Seen (None Seen); Hyaline Casts Urine 0-2 /LPF (0-2); Squamous Epithelial Cell Urine 0-2 /HPF (0-2); WBC Urine 0-5 /HPF (0-5)
--- NOTE | 2023-05-25 11:05 | ED_ITS ---
HPI - Back Pain/Injury General Chief Complaint: Back Pain/Injury Stated Complaint: Lower Back Pain Time Seen by Provider: 05/25/23 09:37 Source: patient and RN notes reviewed Mode of arrival: EMS Limitations: no limitations History of Present Illness HPI Narrative: This is a 62-year-old female presenting to the emergency department, via EMS, for evaluation of left-sided back pain x1 day. Patient denies any recent trauma, injury, heavy lifting or falls. Patient reports that the pain worsens with palpation, and movement of her left leg. Patient reports that she was unable to get out of bed today secondary to the pain. She took a muscle relaxant yesterday however this provided her without any relief. Denies history of back pain in the past.No urinary or bowel incontinence. No saddle anesthesia. No urinary or bowel retention. She admits to having some urinary frequency, denies dysuria, hematuria. No other complaints or concerns at this time. MD elicited complaint: back pain Pertinent past history: prior back pain Timing: constant Severity: mild Similar Symptoms Previously: No Quality: aching Exacerbating factors: movement Relieving factors: none Associated symptoms: denies other symptoms Work related injury: No Related Data Home Medications Medication Instructions Recorded Confirmed aspirin 81 mg tablet,delayed 81 mg PO DAILY 07/24/22 01/02/23 release (Adult Aspirin Regimen) cholecalciferol (vitamin D3) 50 50 mcg PO DAILY 07/24/22 01/02/23 mcg (2,000 unit) capsule (Vitamin D3) [id number] 8 mg-folic 400 1 tab PO DAILY 07/24/22 01/02/23 mcg-K 50 mcg-lutein 300 mcg tablet (Centrum Silver Women) Previous Rx's Medication Instructions Recorded phenazopyridine 200 mg tablet 200 mg PO Q8H prn for urinary 01/02/23 (Pyridium) burning #6 tabs acetaminophen 325 mg capsule 650 mg PO Q6H PRN pain #45 caps 05/25/23 (Tylenol) prednisone 20 mg tablet 40 mg PO DAILY 5 days #10 tabs 05/25/23 Allergies Allergy/AdvReac Type Severity Reaction Status Date / Time ENVIRONMENTAL Allergy Intermediate UPPER Uncoded 01/02/23 10:46 RESPIRATORY IRRITATION Review of Systems Review of Systems: Yes all other systems are reviewed and are negative Constitutional: Constitutional: Reports as per HPI PMFSH Past Medical History Medical History Anemia COVID-19 Hepatitis C History of hypertension Hyperlipidemia Obesity Vertigo Vitamin D deficiency Family History Family History Mother Anemia Social History Social History Alcohol intake: current Alcohol intake frequency: a few times a month Patient Tobacco Use Status: Former Tobacco user Advance Directives: No Advance Directives Information Provided: No Physical Exam Vital Signs: Vital Signs: Last Vital Signs Temp 97.8 F 05/25/23 10:12 Pulse 50 05/25/23 11:55 Resp 14 05/25/23 11:55 BP 143/70 H 05/25/23 11:55 Pulse Ox 97 05/25/23 11:55 O2 Del Method Room Air 05/25/23 11:55 BMI result Body Mass Index 33.1 Const: General: cooperative, comfortable and no acute distress Orientation/consciousness: patient oriented x3 Limitations: no limitations HEENT: Head: Yes normal to inspection, Yes normocephalic and Yes atraumatic Ears: hearing grossly normal bilaterally General nose exam: Normal external nose present Face and sinus: Yes normal facial exam Mouth: Normal oral and palatal mucosa present, oropharynx normal and moist mucous membranes Throat: Yes posterior oropharynx normal Eyes: General: appearance normal, both eyes and all related structures Eyelids: Yes eyelids normal Conjunctivae: conjunctivae normal Sclerae: sclerae normal Pupils: Equal, round and reactive pupils present EOM: EOMs intact bilaterally Neck: Neck: Yes normal visual inspection, Yes full ROM and Yes no lymphadenopathy Lymphatic: no lymphadenopathy noted Chest: Chest palpation & inspection: normal inspection of the chest Resp: Effort & Inspection: normal respiratory effort and able to speak in complete sentences Auscultation: clear to auscultation bilaterally, no crackles, no rales, no rhonchi and no wheezes Cardio: Rate: regular rate Rhythm: regular rhythm Heart sounds: S1 normal heart sound present and S2 normal heart sound present GI: Other: Abdomen is soft, nontender, nondistended. Inspection: Yes normal to inspection Back/Spine/Pelvis: Other: Tenderness to palpation left lumbar paraspinous muscles left SI joint. Skin: General skin exam: no rashes or lesions noted Trauma: no lacerations or abrasions Wounds: no wounds Neuro: General: patient oriented x3 and moves all extremities Cranial nerves: Yes Equal, round and reactive pupils present Extrem: General: Yes normal to inspection Right upper extremity: normal to inspection Left upper extremity: normal to inspection Right lower extremity: normal to inspection Left lower extremity: normal to inspection Course Reevaluation(s) Reevaluation #1: CT scan does not show any signs of kidney stones. Does show degenerative SI joint changes. CT scan also revealing diverticulosis without diverticulitis, calcified uterine fibroid and right renal cyst 6 cm. I discussed all these findings with patient. She states that she has a history of a renal cyst. Symptoms consistent with low back strain, spasm. Patient requesting additional pain medication prior to her departure in the emergency department. Patient has a ride home. Patient medicated with oxycodone 5 mg by mouth. She states that her symptoms have improved after receiving Toradol injection. She is ambulatory, without any red flag back symptoms. Will discharge on prednisone and Tylenol. Given return precautions if any new or worsening symptoms occur. Patient understands and agrees with plan. Patient stable for discharge. Medications Administered Discontinued Medications Generic Name Dose Route Start Last Admin Trade Name Freq PRN Reason Stop Dose Admin Ketorolac Tromethamine 30 mg 05/25/23 09:58 05/25/23 10:04 Ketorolac Tromethamine 30 Mg/Ml Vial IM 05/25/23 09:59 30 mg ONCE ONE Administration Oxycodone HCl 5 mg 05/25/23 14:01 05/25/23 14:19 Oxycodone Hcl Immed Release 5 Mg Tablet PO 05/25/23 14:02 5 mg ONCE ONE Administration Medical Decision Making Medical Decision Making MDM Narrative: 62-year-old female presenting to the emergency department, via EMS, for evaluation of left-sided back pain x1 day. This patient presents with back pain most consistent with lumbar strain. Differential diagnoses includes lumbago versus musculoskeletal spasm / strain versus sciatica.No back pain red flags on history or physical. Presentation not consistent with malignancy (lack of history of malignancy, lack of B symptoms), fracture (no trauma, no bony tenderness to palpation), cauda equina syndrome (no bowel or urinary inco ntinence/retention, no saddle anesthesia, no distal weakness), pyelonephritis (afebrile, no CVAT, no urinary symptoms). Urine shows some hematuria. Given patient with 1 day of back pain, will rule out kidney stone, CT abdomen ordered Plan: X-ray left hip, lumbar spine, UA, CT abdomen, Toradol 30 mg IM Differential Diagnosis Differential Diagnoses: The differential diagnosis associated with the presentation includes Sciatica, disc herniation, lumbar strain, lumbar spasm, see above Admission/Observation Consideration of admission/observation: Escalation of care including admission/observation considered Patient would have been admitted to the hospital had her work up had any findings where hospital admission was appropriate and her clinical presentation warranted hospital admission. Lab Data MDM Lab Attestation statement: I reviewed the patient's lab results. Small blood and RBCs Labs: Lab Results 05/25/23 Range/Units 10:00 Urine Color Yellow Urine Appearance Clear Urine pH 6.0 (5.0-9.0) Ur Specific [place] 1.015 (1.005-1.025) Urine Protein Negative (Neg-Trace) mg/dL Urine Glucose (UA) Negative (Negative) mg/dL Urine Ketones Negative (Negative) mg/dL Urine Blood Small (1+) H (Negative) Urine Nitrite Negative (Negative) Ur Leukocyte Esterase Negative (Negative) Urine RBC 3-5 H (0-2) /HPF Urine WBC 0-5 (0-5) /HPF Ur Squamous Epith Cells 0-2 (0-2) /HPF Urine Bacteria None Seen (None Seen) Hyaline Casts 0-2 (0-2) /LPF Radiology Impression Discussion of test interpretation with radiology: I have reviewed the radiologist's reading. Radiologist Impression: FINDINGS: LOWER THORAX: Included lung bases are clear. HEPATOBILIARY: No focal hepatic lesions. No biliary ductal dilatation. GALLBLADDER: Gallbladder unremarkable. SPLEEN: Spleen normal in size, there is rounded structure adjacent to the spleen 1.8 cm likely splenule. PANCREAS: No focal mass or ductal dilatation. STOMACH AND GASTROINTESTINAL TRACT: Stomach is grossly unremarkable. There are few diverticula of the sigmoid colon, mild diverticulosis, no CT evidence of diverticulitis. Normal size appendix. No CT evidence of appendicitis. ADRENALS: No adrenal nodules. KIDNEYS/URETERS: There is a simple cyst protruding from the middle pole right kidney 6 x 5 cm, the morphology and attenuation of which suggests simple cyst Bosniak class I, no follow-up is required. URINARY BLADDER: Partially decompressed. PELVIC VISCERA: Calcified mass in the uterus 1.4 cm likely necrotic calcified uterine fibroid. PERITONEUM: No free air or fluid. LYMPH NODES: No lymphadenopathy. VASCULAR:Abdominal aorta normal in size, no aneurysm found. BONES, ABDOMINAL WALL AND SOFT TISSUES: There are sclerotic changes around the SI joints bilaterally suggesting sacroiliitis left more than right. Age-appropriate changes of the spine and skeletal system, no destructive osteolytic or osteosclerotic bone lesion found CT/CT abdomen pelvis wo IV con IMPRESSION: ? *? No CT evidence of acute intra-abdominal process to explain patient's pain symptoms. ? *? Diverticulosis without evidence of acute diverticulitis. ? *? Calcified uterine fibroid. ? *? Right renal cyst 6 cm Bosniak class I, no follow-up is required. ? *? Sclerotic changes around the SI joints bilaterally suggesting sacroiliitis this has involved the left more than right side. ? Dictated By: Jo Cruz MD EXAMINATION: XR LUMBOSACRAL SPINE CLINICAL INFORMATION: Low back pain. COMPARISON: Lumbar spine radiographs dated 11/17/2019. TECHNIQUE: Three views of the lumbosacral spine. FINDINGS: There is normal lumbar lordosis and spinal alignment. Mild degenerative disc disease is seen at L5-S1. There is no acute fracture or dislocation. The soft tissues are unremarkable. XR/XR lumbar spine 2-3V IMPRESSION: L5-S1 mild degenerative disc disease. No acute abnormality. ? Dictated By: Remigio Eduardo MD EXAMINATION: XR HIP, LEFT CLINICAL INFORMATION: Hip pain. COMPARISON: None available. TECHNIQUE: Two views of the left hip. FINDINGS: Mild bilateral hip and mild to moderate pubic symphysis degenerative joint changes are seen. There is no acute fracture or dislocation. The soft tissues are unremarkable. XR/XR hip LT w PEL1V IMPRESSION: Mild bilateral hip and mild to moderate pubic symphysis degenerative joint changes. No acute fracture. ? Dictated By: Remigio Eduardo MD Signed By: <Electronically signed by Remigio Eduardo MD in OV> 05/25/23 1028 Prescription Management I considered prescription management with: Pain Medication Discharge Plan Discharge Clinical Impression: Lumbar back pain Patient Disposition: Home, Self-Care Instructions: Acute Low Back Pain (ED) Additional Instructions: Your CT scan did not show any kidney stones. It did show diverticulosis, without diverticulitis. You also have a calcified uterine fibroid. You also have a right renal cyst, we which you are already aware of. You have degenerative changes in your SI joint. You also have L5-S1 mild degenerative disc disease. You also have bilateral hip degenerative changes. Your symptoms are likely due to muscle spasms and arthritis. Please take prescribed medication as directed. If any new or worsening symptoms occur, including but not limited to numbness or tingling anterior groin, or loss of bladder or bowel control, please return for re-evaluation. Prescriptions: New prednisone 20 mg tablet 40 mg PO DAILY 5 Days Qty: 10 0RF acetaminophen [Tylenol] 325 mg capsule 650 mg PO Q6H PRN (Reason: pain) Qty: 45 0RF No Action aspirin [Adult Aspirin Regimen] 81 mg tablet,delayed release (DR/EC) 81 mg PO DAILY Centrum Silver Women 8 mg iron-400 mcg-300 mcg tablet 1 tab PO DAILY cholecalciferol (vitamin D3) [Vitamin D3] 50 mcg (2,000 unit) capsule 50 mcg PO DAILY phenazopyridine [Pyridium] 200 mg tablet 200 mg PO Q8H Qty: 6 0RF Rx Instructions: take with food may cause nausea Interventions: ED Discharge Assessment Last Done: 05/25/23 14:34 Discharge Date/Time: 05/25/23 14:35
[2023-05-25 11:55] VITALS: BP 143/70; PULSE 50; RESP 14; O2SAT 97
[2023-05-25] MEDS: oxyCODONE HCl Immed Release 5 MG TABLET PO (14:19)
== END 2023-05-25 14:35 | disposition home or self-care (01) ==
PROVIDERS: Physician Assistant Medical; Emergency Provider Emergency Medicine
DX: M54.50 Low back pain, unspecified (principal); M25.552 Pain in left hip; Z87.891 Personal history of nicotine dependence; Z79.899 Other long term (current) drug therapy
CPT/HCPCS: 72100; 73502; 74176; 81001; 96372; 99284; J1885

== ENCOUNTER 2023-07-01 09:59 | Outpatient (RCR) | payer MEDICAID, SELFPAY | END 2023-08-15 11:58 | disposition home or self-care (01) | LOC: HO.PT 09:59 | PROVIDERS: PCP Family Medicine; Visit Provider Internal Medicine Geriatric Medicine | DX: M54.32 Sciatica, left side (principal) ==

== ENCOUNTER 2023-07-07 08:57 | Outpatient (AMB) | payer MEDICAID, SELFPAY ==
--- NOTE | 2023-07-07 09:17 | A.OFFVIS_ITS ---
Intake Vital Signs 07/07/23 09:18 Height 5 ft 6 in Weight 214 lb 11.684 oz BMI 34.7 BP 140/82 H Blood Pressure Location Lt brachial Position Sitting Pulse 61 Intake Visit Reasons: FOLLOW UP ON/OFF CP Intake Note: follow up chest pain Stranding Supervisor Required: No Allergies ENVIRONMENTAL Allergy (Intermediate, Uncoded 01/02/23 10:46) UPPER RESPIRATORY IRRITATION Medication List - Last Reconciled 07/07/23 by Luann Cosby NP-C aspirin (Adult Aspirin Regimen) 81 mg PO DAILY HPI FOLLOW UP ON/OFF CP HPI Details Shona is a 63-year-old female with past medical history of obesity, hypertension, hyperlipidemia, smoking who has reported atypical sounding chest discomfort and now presents for follow-up. Today she reports that she continues to get a discomfort in her mid chest which occurs periodically. Recently it has only been occurring when she is angry and yelling. She also has felt it when she was moving some furniture. She does not get it with normal day-to-day activities including walking and stair climbing. Overall it is not getting worse or happening easier. She has some shortness of breath with exertion which has not changed. No palpitations, dizziness, presyncope, syncope, PND, orthopnea or edema. She takes her meds as directed. She is concerned about her heart. [facility] Medical History (Updated 07/07/23 @ 10:45 by Luann Cosby NP-C) Hyperlipidemia History of hypertension COVID-19 Vertigo Vitamin D deficiency Anemia Obesity Hepatitis C Family History Mother Anemia Social History Alcohol intake: current Alcohol intake frequency: a few times a month Patient Tobacco Use Status: Former Tobacco user Review of Systems Const All systems reviewed & are unremarkable except as noted in HPI and below ENT Denies dizziness Card Reports chest pain, Denies chest pain at rest, Denies chest pain with activity, Denies rapid heart rate, Denies pedal edema, Denies edema, Denies leg edema, Denies lightheadedness, Denies palpitations, Reports dyspnea, Denies dyspnea on exertion and Denies orthopnea Resp Denies cough, Reports dyspnea and Denies dyspnea on exertion GI Denies hematochezia and Denies change in stool character Musc Denies abnormal gait, Reports limited range of motion, Reports muscle cramps, Denies muscle weakness, Denies numbness, Denies radiating pain into limb, Denies stiffness and Denies tingling Neuro Denies abnormal gait, Denies dizziness, Denies numbness and Denies tingling Endo Denies palpitations Physical Exam Vital Signs: Last Vital Signs Pulse 61 07/07/23 09:18 BP 140/82 H 07/07/23 09:18 BMI result Body Mass Index 34.7 Const General: cooperative, healthy appearing, comfortable and no acute distress Orientation/consciousness: patient oriented x3 Neck Neck: Yes normal visual inspection Resp Effort & Inspection: normal respiratory effort Auscultation: clear to auscultation bilaterally, no crackles, no rales, no rhonchi and no wheezes Cardio Jugular venous distension: no JVD Rate: regular rate Rhythm: regular rhythm Heart sounds: S1 normal heart sound present, S2 normal heart sound present, no murmurs and no rubs Neuro General: patient oriented x3 Extrem General: Yes normal to inspection and No no pedal edema Psych Appearance: grossly normal Mental Status: mental status grossly normal Speech and movement: Normal speech and movement present Office Procedures EKG Details: Today, red by me, SR with PVC, nonspecific T wave abn, rate 61. [id number], Complete Assessment & Plan Assessment & Plan (1) Precordial chest pain: Code(s): R07.2 - Precordial pain Plan: Chest discomfort occurring when upset and at times with exertion such as moving furniture. Overall not increasing in the last year in frequency or severity. Mostly has atypical features. Has cardiac risk factors of obesity, hypertension, hyperlipidemia and prior smoking. Echocardiogram done 09/04 2022 showed EF 60-65%, mild diastolic dysfunction. Nuclear stress test done 09/04/2022 with good exercise tolerance, no EKG changes, normal myocardial perfusion imaging. Offered CTA of the coronary arteries for further evaluation. She does not feel necessary at this time. She will continue to monitor symptom s and notify us if things are worsening. Spent time reviewing signs and symptoms of angina. Instructed to increase activity as tolerated, weight loss, good blood pressure and cholesterol control. Cardiology follow-up in 6 months, sooner if needed (2) Shortness of breath: Code(s): R06.02 - Shortness of breath Plan: Mild shortness of breath with exertion. Cardiac testing as above without significant findings (3) History of hypertension: Code(s): Z86.79 - Personal history of other diseases of the circulatory system Plan: Mild elevation today. She is not on antihypertensives. Blood pressure continues to be elevated with systolic greater than 140 an Alex/Arb can be added. Labs done 12/23/2022 showed creatinine 0.85 Coding Level of Care Code Est Pt Level 3 (38303) Diagnoses Precordial chest pain R07.2 Shortness of breath R06.02 History of hypertension Z86.79 CPT Codes EKG - CPT: [id number], Complete ([id number]) Time Spent (min) 22
[2023-07-07 09:18] VITALS: BP 140/82; PULSE 61; BMI 34.7
== END 2023-07-07 09:51 | disposition home or self-care (01) ==
PROVIDERS: PCP Family Medicine; Visit Provider Nurse Practitioner Family
DX: R07.2 Precordial pain (principal); R06.02 Shortness of breath; Z86.79 Personal history of other diseases of the circulatory system
CPT/HCPCS: 93010; 99213

== ENCOUNTER → 2023-07-07 08:57 | Outpatient (BNVA) | payer MEDICAID, SELFPAY | PROVIDERS: PCP Family Medicine; Visit Provider Nurse Practitioner Family | DX: R07.2 Precordial pain (principal); R06.02 Shortness of breath; Z86.79 Personal history of other diseases of the circulatory system | CPT/HCPCS: 93005; 99212 ==

== ENCOUNTER 2023-09-08 10:01 | Outpatient (REF) | payer MEDICAID, SELFPAY ==
[2023-09-08 11:13] LABS: MANUAL DIFF FLAG NO
[2023-09-08 11:44] LABS: Basophils Absolute Auto 0.1 X10*3/uL (0.0-0.2); Basophils Percent Auto 0.8 % (0-2); Eosinophils Absolute Auto 0.3 X10*3/uL (0.0-0.4); Eosinophils Percent Auto 4.7 % (0-4); Hematocrit 38.8 % (37.0-47.0); Hemoglobin 12.6 g/dl (12.0-16.0); Imm Gran Abs Auto 0.02 X10*3/uL (0.00-0.03); Imm Gran Pct Auto 0.3 % (0.0-0.4); Lymphocytes Absolute Auto 1.8 X10*3/uL (1.2-4.9); Mean Corpuscular HGB Conc 32.5 g/dl (31.0-35.0); Mean Corpuscular Hemoglobin 28.1 pg (27.0-33.0); Mean Corpuscular Volume 86.4 fL (80.0-98.0); Monocytes Absolute Auto 0.5 X10*3/uL (0.1-1.2); Monocytes Percent Auto 7.5 % (2-11); Neutrophils Absolute Auto 3.8 x10*3/uL (2.0-8.3); Neutrophils Percent Auto 58.7 % (45-73); Platelet Count 226 X10*3/uL (160-400); Red Blood Count 4.49 X10*6/uL (4.20-5.50); Red Cell Distribution Width 12.7 % (11.0-16.0); White Blood Count 6.5 X10*3/uL (4.8-10.8)
[2023-09-08 11:53] LABS: Estimated Average Glucose 117 mg/dL; Hemoglobin A1c % 5.7 % (<6.0)
[2023-09-08 12:37] LABS: Thyroid Stimulating Hormone 1.34 uIU/mL (0.32-4.0); Vitamin D 25-OH Total 28.7 ng/mL (>30)
[2023-09-08 12:42] LABS: Anion Gap 10 (12-20)
[2023-09-08 12:47] LABS: Alanine Aminotransferase 8 U/L (0-31); Albumin Level 4.1 g/dL (3.5-5.0); Alkaline Phosphatase 132 U/L (39-117); Aspartate Amino Transferase 15 U/L (5-31); Bilirubin Direct 0.2 mg/dL (0.0-0.5); Bilirubin Total 0.5 mg/dL (0.0-1.0); Blood Urea Nitrogen 11 mg/dL (9-16); Carbon Dioxide 29 mmol/L (22-29); Chloride 105 mmol/L (96-108); Cholesterol 175 mg/dL (<200); Estimated Glomerular Filt Rate > 60; Glucose Random 96 mg/dL (60-115); HDL Cholesterol 49 mg/dL (>40); LDL Cholesterol Calculated 111 mg/dL (<100); Potassium 3.8 mmol/L (3.3-5.1); Sodium 140 mmol/L (135-145); Total Protein 7.5 g/dL (6.5-8.0); Triglycerides 76 mg/dL (<150)
[2023-09-09 03:29] LABS: CT PCR NOT DETECTED (Not Detect.); NG PCR NOT DETECTED (Not Detect.)
[2023-09-09 12:49] LABS: BV Int Neg Control Negative (Negative); BV Int Pos Control Positive (Positive)
[2023-09-10 13:05] LABS: Alpha Fetoprotein 1.7 ng/mL
== END 2023-09-08 10:02 | disposition home or self-care (01) ==
LOC: HO.HHCL 10:01
PROVIDERS: Visit Provider Family Medicine
DX: E78.49 Other hyperlipidemia (principal); K76.0 Fatty (change of) liver, not elsewhere classified; L29.2 Pruritus vulvae; Z86.79 Personal history of other diseases of the circulatory system
CPT/HCPCS: 0353U; 36415; 80048; 80061; 80076; 82105; 82306; 83036; 84439; 84443; 85025; 87086; 87088; 87186; 87480; 87510; 87660

== ENCOUNTER → 2023-09-12 08:15 | Outpatient (BNV) | payer MEDICAID, SELFPAY | PROVIDERS: PCP Family Medicine; Visit Provider Radiology Diagnostic Radiology | DX: Z12.31 Encounter for screening mammogram for malignant neoplasm of breast (principal) | CPT/HCPCS: 77063; 77067 ==

== ENCOUNTER 2023-09-12 08:16 | Outpatient (REF) | payer MEDICAID, SELFPAY ==
--- NOTE | ~2023-09-12 | MM_ITS ---
EXAMINATION: MM SCREENING DIGITAL BREAST TOMOSYNTHESIS, BILATERAL CLINICAL INFORMATION: Screening. Asymptomatic. COMPARISON: Mammography: This study is compared with prior exams dating back to 2016. TECHNIQUE: Digital breast tomosynthesis is performed in both the craniocaudal and mediolateral oblique views along with computer-aided detection (CAD). Synthesized 2D images are generated from the tomosynthesis. FINDINGS: There are scattered areas of fibroglandular density (ACR BI-RADS breast composition Category b). There is a focal asymmetry in the upper inner quadrant of the left breast at posterior depth. Additional mammographic and targeted sonographic evaluation is advised. In the right breast, there are no significant masses, abnormal calcifications, or other abnormalities. MM/MM tomosynthesis screening BI IMPRESSION: Focal asymmetry of the upper inner quadrant of the left breast warrants additional mammographic and targeted sonographic evaluation. No mammographic signs of malignancy right breast. ASSESSMENT: BI-RADS BI-RADS 0 - Incomplete: Needs additional Imaging. RECOMMENDATION: 1. Additional views of the left breast 2. Targeted ultrasound if warranted after review of the additional views. 3. Radiology department staff will contact the patient for additional imaging. Additional Imaging required This examination should not preclude the clinical evaluation of a suspicious palpable abnormality. This patient's information was entered into a reminder system with a target due date for their next mammogram.
== END 2023-09-12 08:17 | disposition home or self-care (01) ==
LOC: HO.MAMMO 08:16
PROVIDERS: PCP Family Medicine; Visit Provider Family Medicine
DX: Z12.31 Encounter for screening mammogram for malignant neoplasm of breast (principal)
CPT/HCPCS: 77063; 77067

== ENCOUNTER 2023-10-24 10:49 | Outpatient (REF) | payer MEDICAID, SELFPAY | END 2023-10-24 10:50 | disposition home or self-care (01) | LOC: HO.MAMMO 10:49 | PROVIDERS: PCP Family Medicine; Visit Provider Family Medicine | DX: N64.89 Other specified disorders of breast (principal) | CPT/HCPCS: 77061; 77065 ==

== ENCOUNTER → 2023-10-24 11:00 | Outpatient (BNV) | payer MEDICAID, SELFPAY | PROVIDERS: PCP Family Medicine; Visit Provider Radiology Diagnostic Radiology | DX: R92.8 Other abnormal and inconclusive findings on diagnostic imaging of breast (principal) | CPT/HCPCS: 77062; 77065 ==

== ENCOUNTER 2023-12-15 08:56 | Outpatient (REF) | payer MEDICAID, SELFPAY ==
--- NOTE | ~2023-12-15 | XR_ITS ---
EXAMINATION: XR CHEST CLINICAL INFORMATION: Cough. COMPARISON: Chest radiograph of 05/07/2022, 04/02/2019. TECHNIQUE: 2 views of the chest were obtained. FINDINGS: There is no gross pneumothorax. Lung volumes are low. Heart size is normal. Small focal opacity along the mid heart border may represent atelectasis or mild inflammatory process versus other etiology. Moderate degenerative changes in the thoracic spine. No significant pleural effusion. XR/XR chest 2V IMPRESSION: Small focal opacity along the mid heart border may represent atelectasis or mild inflammatory process versus other etiology. Recommend follow-up imaging in 4-6 weeks to confirm resolution and exclude underlying pathology.
== END 2023-12-15 08:57 | disposition home or self-care (01) ==
LOC: HO.XRAY 08:56
PROVIDERS: PCP Family Medicine; Visit Provider Hospitalist
DX: J45.41 Moderate persistent asthma with (acute) exacerbation (principal); R05.2 Subacute cough
CPT/HCPCS: 71046; 99202

== ENCOUNTER 2023-12-15 08:56 | Outpatient (AMB) | payer MEDICAID, SELFPAY ==
[2023-12-15 09:36] VITALS: BP 128/70; PULSE 58; O2SAT 100; BMI 35.0
--- NOTE | 2023-12-15 09:36 | MHC.OFFVIS ---
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 Manager Heavy Equipment Required: No Allergies ENVIRONMENTAL Allergy (Intermediate, Uncoded 12/15/23 09:41) UPPER RESPIRATORY IRRITATION PFSH Medical History (Updated 12/15/23 @ 21:10 by Joshua Crump MD) Reactive airway disease Cough Hyperlipidemia History of hypertension COVID-19 Vertigo Vitamin D deficiency Anemia Obesity Hepatitis C Family History Mother Anemia Social History Alcohol intake: current Alcohol intake frequency: a few times a month Patient Tobacco Use Status: Former Tobacco user Review of Systems Const Denies fever(s) Eyes Reports no additional complaints ENT Reports nasal congestion and Reports nasal discharge Card Denies chest pain Resp Reports chest congestion, Reports cough and Reports wheezing GI Reports no additional complaints Musc Reports no additional complaints Skin/Breast Denies rash Neuro Reports no additional complaints Psych Reports no additional complaints Freddy/Lymph Denies easy bruising Aller/Immun Reports wheezing Physical Exam Vital Signs: Last Vital Signs Pulse 58 12/15/23 09:36 BP 128/70 12/15/23 09:36 Pulse Ox 100 12/15/23 09:36 Oxygen Delivery Method Room Air 12/15/23 09:36 BMI result Body Mass Index 35.0 Const General: comfortable HEENT Head: Yes normocephalic Neck Neck: Yes supple Chest Chest palpation & inspection: normal inspection of the chest Resp Effort & Inspection: normal respiratory effort and prolonged expiratory phase Auscultation: diminished lung sounds Cardio Heart sounds: S1 normal heart sound present and S2 normal heart sound present Skin General skin exam: no rashes or lesions noted Extrem General: Yes no clubbing, cyanosis or edema Assessment & Plan Assessment & Plan (1) Cough: Code(s): R05.9 - Cough, unspecified Qualifiers: Cough type: subacute Qualified Code(s): R05.2 - Subacute cough (2) Reactive airway disease: Code(s): J45.909 - Unspecified asthma, uncomplicated Qualifiers: Asthma severity: moderate Asthma persistence: persistent Asthma complication type: with acute exacerbation Qualified Code(s): J45.41 - Moderate persistent asthma with (acute) exacerbation Plan Start Breo ROSA as needed Start Azithromycin x 5 days If no better, start Medrol PK CXR Spirometry when better F/U 2-3 months Orders: Orders XR chest 2V Today R05.9 - Cough, unspecified Medications: New azithromycin 500 mg PO DAILY 5 days 5 tabs 0RF fluticasone furoate-vilanterol 200-25 mcg/dose (Breo Ellipta) 1 inh inhalation DAILY 30 days 60 ea 11RF J45.909 - Unspecified asthma, uncomplicated methylprednisolone (Medrol (Raz)) PO PER PKG DIR 6 days 21 ea 0RF Coding Level of Care Code New Pt Level 4 (54446) Diagnoses Subacute cough R05.2 Cough type: subacute Moderate persistent reactive airway disease with acute exacerbation J45.41 Asthma severity: moderate Asthma persistence: persistent Asthma complication type: with acute exacerbation Time Spent (min) 35
== END 2023-12-15 10:01 | disposition home or self-care (01) ==
PROVIDERS: PCP Family Medicine; Visit Provider Hospitalist
DX: R05.2 Subacute cough (principal); J45.41 Moderate persistent asthma with (acute) exacerbation
CPT/HCPCS: 99204

== ENCOUNTER 2024-01-06 09:03 | Outpatient (AMB) | payer MEDICAID, SELFPAY ==
[2024-01-06 09:21] VITALS: BP 132/80; PULSE 57; BMI 35.2
--- NOTE | 2024-01-06 09:21 | A.OFFVIS_ITS ---
Intake Vital Signs 01/06/24 09:21 Height 5 ft 6 in Weight 217 lb 13.067 oz BMI 35.2 BP 132/80 Blood Pressure Location Rt brachial Position Sitting Pulse 57 Pulse Source Pulse Oximeter Intake Visit Reasons: 6 month follow up Management Specialist Required: No Allergies ENVIRONMENTAL Allergy (Intermediate, Uncoded 01/06/24 09:24) UPPER RESPIRATORY IRRITATION Medication List - Last Reconciled 01/06/24 by Luann Cosby, JA-C aspirin (Adult Aspirin Regimen) 81 mg PO DAILY fluticasone furoate-vilanterol 200-25 mcg/dose (Breo Ellipta) 1 inh inhalation DAILY 30 days multivitamin 1 tab PO DAILY HPI 6 month follow up HPI Details Shona is a 63-year-old female with past medical history of obesity, hypertension, hyperlipidemia, smoking who has reported atypical sounding chest discomfort and now presents for follow-up. Today she reports that she continues to get a discomfort in her chest which occurs periodically. Previously she said it was in her mid chest. Now she is describing it over her right breast. She says it feels like a twinge that occurs when she is angry and yelling. It can occur randomly as well. She says it is not brought on by normal day-to-day activities including walking and stair climbing. It is not getting worse or changing since her last visit 6 months ago. She has some shortness of breath with exertion which has not changed. No palpitations, dizziness, presyncope, syncope, PND, orthopnea or edema. She takes her meds as directed. [facility] Medical History Pneumonia Reactive airway disease Cough Hyperlipidemia History of hypertension COVID-19 Vertigo Vitamin D deficiency Anemia Obesity Hepatitis C Family History Mother Anemia Social History Alcohol intake: current Alcohol intake frequency: a few times a month Patient Tobacco Use Status: Former Tobacco user Review of Systems Const All systems reviewed & are unremarkable except as noted in HPI and below ENT Denies dizziness Card Reports chest pain (sharp twinge of pain right chest, random), Denies chest pain at rest, Denies chest pain with activity, Denies rapid heart rate, Denies pedal edema, Denies edema, Denies leg edema, Denies lightheadedness, Denies palpitations, Denies dyspnea, Reports dyspnea on exertion and Denies orthopnea Resp Denies cough, Denies dyspnea and Reports dyspnea on exertion GI Denies hematochezia and Denies change in stool character Musc Denies abnormal gait, Denies limited range of motion, Denies muscle cramps, Denies muscle weakness, Denies numbness, Denies radiating pain into limb, Denies stiffness and Denies tingling Neuro Denies abnormal gait, Denies dizziness, Denies numbness and Denies tingling Endo Denies palpitations Physical Exam Vital Signs: Last Vital Signs Pulse 57 01/06/24 09:21 BP 132/80 01/06/24 09:21 BMI result Body Mass Index 35.2 Const General: cooperative, healthy appearing, comfortable and no acute distress Orientation/consciousness: patient oriented x3 Neck Neck: Yes normal visual inspection and Yes no JVD Resp Effort & Inspection: normal respiratory effort Auscultation: clear to auscultation bilaterally, no crackles, no rales, no rhonchi and no wheezes Cardio Jugular venous distension: no JVD Rate: regular rate Rhythm: regular rhythm Heart sounds: S1 normal heart sound present, S2 normal heart sound present, no murmurs and no rubs Neuro General: patient oriented x3 Extrem General: Yes normal to inspection, No no pedal edema and No calf tenderness Psych Appearance: grossly normal Mental Status: mental status grossly normal Speech and movement: Normal speech and movement present Assessment & Plan Assessment & Plan (1) Precordial chest pain: Code(s): R07.2 - Precordial pain Plan: Atypical Chest discomfort occurring when upset and randomly. In the past it occurred when she was moving furniture. The symptom has not increased in frequency or severity since her last visit 6 months ago. Has cardiac risk factors of obesity, hypertension, hyperlipidemia and prior smoking. Echocardiogram done 09/04/2022 showed EF 60-65%, mild diastolic dysfunction. Nuclear stress test done 09/04/2022 with good exercise tolerance, no EKG changes, normal myocardial perfusion imaging. Previously Offered CTA of the co ronary arteries and she declined. She will continue to monitor symptoms and notify us if things are worsening. Spent time reviewing signs and symptoms of angina. Instructed to increase activity as tolerated, weight loss, good blood pressure and cholesterol control. Cardiology follow-up in 1 year, sooner if needed (2) Shortness of breath: Code(s): R06.02 - Shortness of breath Plan: Mild shortness of breath with exertion. Cardiac testing as above without significant findings. She does have a diagnosis of asthma and follows with pulmonology. (3) History of hypertension: Code(s): Z86.79 - Personal history of other diseases of the circulatory system Plan: Normal range today. No med changes made Plan Time spent on chart review, documentation, interview and assessment Coding Level of Care Code Est Pt Level 3 (19804) Diagnoses Precordial chest pain R07.2 Shortness of breath R06.02 History of hypertension Z86.79 Time Spent (min) 24
== END 2024-01-06 09:43 | disposition home or self-care (01) ==
PROVIDERS: PCP Family Medicine; Visit Provider Nurse Practitioner Family
DX: R07.2 Precordial pain (principal); R06.02 Shortness of breath; Z86.79 Personal history of other diseases of the circulatory system
CPT/HCPCS: 99213

== ENCOUNTER → 2024-01-06 09:03 | Outpatient (BNVA) | payer MEDICAID, SELFPAY | PROVIDERS: PCP Family Medicine; Visit Provider Nurse Practitioner Family | DX: R07.2 Precordial pain (principal); R06.02 Shortness of breath | CPT/HCPCS: 99212 ==

== ENCOUNTER 2024-01-28 08:07 | Emergency (ER) | payer MEDICAID, SELFPAY ==
--- NOTE | ~2024-01-28 | XR_ITS ---
EXAMINATION: XR CHEST CLINICAL INFORMATION: Cough and abnormal chest radiograph from November. COMPARISON: 12/15/2023 TECHNIQUE: 2 views of the chest were obtained. FINDINGS: No significant abnormality is noted involving the heart, lungs, mediastinum, bony thorax or soft tissues. XR/XR chest 2V IMPRESSION: Unremarkable examination.
--- NOTE | ~2024-01-28 | CT_ITS ---
EXAMINATION: CT HEAD WITHOUT CONTRAST CLINICAL INFORMATION: Headache COMPARISON: CT scan of brain on 07/09/2019 TECHNIQUE: Contiguous axial imaging was performed from the skull base to vertex without intravenous administration of contrast. This CT examination was performed using dose optimization techniques as appropriate, variously including the following: *Automated exposure control *Adjustment of mA and/or kV according to patient size (this includes techniques or standardized protocols for targeted exams where dose is matched to indication/reason for exam; i.e. extremities or head) *Use of iterative reconstruction technique DLP: 609.13 mGy-cm FINDINGS: Ventricles, sulci and cisterns are normal. There is no midline shift, no abnormal intra- or extra- axial fluid accumulation. Baird and white matter differentiation is normal. Bone window images show no evidence of skull fracture. CT/CT head/brain wo IV con IMPRESSION: 1. Unchanged Normal CT scan of the brain. 2. No intracranial hemorrhage or skull fracture is seen. 3. No evidence of space occupying lesion could be found. 4. The current plain CT scan of the brain shows no diagnostic evidence of acute cerebral infarction.
[2024-01-28 08:33] VITALS: BP 120/79; PULSE 100; RESP 18; TEMP 37.6; O2SAT 97; BMI 33.1
--- NOTE | 2024-01-28 10:15 | ED.GENADULT ---
HPI - General Adult General Chief complaint: Headache Stated complaint: Dizzy Headache Time Seen by Provider: 01/28/24 10:14 Source: patient Mode of arrival: ambulatory Limitations: no limitations History of Present Illness HPI narrative: Patient is a 63-year-old female with history of HTN, HLD, recently diagnosed with asthma presenting to the emergency department with complaint of ongoing shortness of breath, nonproductive cough, generalized fatigue and headaches. Reports symptoms worsened around 2:00 a.m. today. States that when she saw the sports complex attendant she was prescribed a Brio inhaler but states that she discontinued this herself around 2 weeks ago because she felt it was not improving her symptoms. States that other family members in the home are sick with similar symptoms and so she does not believe her diagnosis of asthma is accurate. Has not taken any qzne-yoh-tkabptc medications for her headache. Complains of feeling lightheaded and fatigued. Denies chest pain or palpitations. Denies abdominal pain, nausea, vomiting, diarrhea, constipation. Denies urinary symptoms. States she took the prescribed steroids from her sports complex attendant but that was around one month ago. MD complaint: shortness of breath Onset (ago): month(s) Location: head Radiation: non-radiation Severity: moderate Quality: aching Relieving factors: none Associated symptoms: cough and shortness of breath Related Data Home Medications ?Medication ?Instructions ?Recorded ?Confirmed aspirin 81 mg tablet,delayed 81 mg PO DAILY 07/24/22 01/06/24 release (Adult Aspirin Regimen) multivitamin 1 tab PO DAILY 12/15/23 01/06/24 Previous Rx's ?Medication ?Instructions ?Recorded fluticasone furoate 200 1 inh inhalation DAILY 30 days #60 12/15/23 mcg-vilanterol 25 mcg/dose ea inhalation powder (Breo Ellipta) axgtloemva-kanxyactrlshn-zmzjuyih 1 cap PO Q8H PRN headache #2 caps 01/28/24 50 mg-300 mg-40 mg capsule (Fioricet) doxycycline hyclate 100 mg capsule 100 mg PO BID #10 caps 01/28/24 Allergies Allergy/AdvReac Type Severity Reaction Status Date / Time ENVIRONMENTAL Allergy Intermediate UPPER Uncoded 01/28/24 08:36 RESPIRATORY IRRITATION Review of Systems Review of Systems: As per HPI. Yes all other systems are reviewed and are negative Constitutional: Constitutional: Reports as per HPI PMFSH Past Medical History Medical History Pneumonia Reactive airway disease Cough Hyperlipidemia History of hypertension COVID-19 Vertigo Vitamin D deficiency Anemia Obesity Hepatitis C Family History Family History Mother Anemia Social History Social History Alcohol intake: current Alcohol intake frequency: a few times a month Patient Tobacco Use Status: Former Tobacco user Advance Directives: No Advance Directives Information Provided: No Physical Exam ED Vital Signs: Vital Signs - 24 hr 01/28/24 08:33 01/28/24 12:00 Temperature 99.7 F 98.8 F Pulse Rate 100 60 Respiratory Rate 18 16 Blood Pressure 120/79 111/70 Pulse Oximetry 97 99 Oxygen Delivery Method Room Air Room Air BMI result Body Mass Index 33.1 Vital signs have been reviewed and appear to be correct. Blood pressure normal. Heart rate normal. Respiratory rate normal. Temperature normal. Oxygen saturation normal. Const General: cooperative, healthy appearing and no acute distress Orientation/consciousness: oriented to person, oriented to place, oriented to time and patient oriented x3 Limitations: no limitations HENWV Head: Yes normocephalic and Yes atraumatic Ears: external ears normal General nose exam: Normal external nose present Face and sinus: Yes face symmetric Mouth: oropharynx normal and moist mucous membranes Throat: Yes uvula midline Eyes Pupils: Equal, round and reactive pupils present Neck Neck: Yes normal visual inspection and Yes supple Resp Effort & Inspection: normal respiratory effort and able to speak in complete sentences Auscultation: clear to auscultation bilaterally and diminished lung sounds diffuse Cardio Rate: regular rate Rhythm: regular rhythm Heart sounds: S1 normal heart sound present and S2 normal heart sound present GI Palpation (GI): Soft to palpation and nontender Auscultation: normoactive bowel sounds General: Yes no CVA tenderness Back/Spine/Pelvis Back: no CVA tenderness Skin General skin exam: elasticity normal and turgor normal Neuro General: oriented to person, oriented to place, oriented to time, patient oriented x3, gait normal, tone normal, moves all extremities, no focal motor deficits, CN's II-XI intact bilaterally and deep tendon reflexes 2+ bilaterally Cranial nerves: Yes Equal, round and reactive pupils present Cognition (Neuro): normal cognition Motor exam (neuro): 5/5 motor strength present throughout, Pronator motor function not present, Normal motor muscle tone present throughout and Motor abnormalities not present Sensory Exam: Normal double simultaneous stimulation for sensation Extrem General: Yes full ROM, Yes no pedal edema and Yes no calf tenderness Psych Mental Status: mental status grossly normal Affect: normal affect Thought process: Normal thought process present NIH Stroke Scale Internal: Initial- Upon Arrival Time: 10:44 Level of Consciousness: Alert Level of Consciousness Questions: Answers both questions correctly Level of Consciousness Commands: Performs both tasks correctly Best Gaze: Normal Visual: No visual loss Facial Palsy: Normal Motor Arm (Right): No drift Motor Arm (Left): No drift Motor Leg (Right): No drift Motor Leg (Left): No drift Limb Ataxia: Absent Sensory: Normal Best Language: No aphasia Dysarthia: Normal Extinction and Inattention: No abnormality Score: 0 Medications Administered Discontinued Medications Generic Name Dose Route Start Last Admin Trade Name Alejandroq PRN Reason Stop Dose Admin Acetaminophen 975 mg 01/28/24 10:34 01/28/24 11:08 Acetaminophen 325 Mg Tablet PO 01/28/24 10:35 975 mg ONCE ONE Administration Ketorolac Tromethamine 30 mg 01/28/24 10:34 01/28/24 11:08 Ketorolac Tromethamine 30 Mg/Ml Vial IM 01/28/24 10:35 30 mg ONCE ONE Administration Medical Decision Making Medical Decision Making [facility] Narrative: Patient is a 63-year-old female with history of HTN, HLD, recently diagnosed with asthma presenting to the emergency department with complaint of ongoing shortness of breath, nonproductive cough, generalized fatigue and headaches. On exam patient is awake, A+Ox3, VS WNL, afebrile, normal neurological exam without focal deficits, physical exam findings as above. Given reported symptoms and physical exam findings, initial differential includes viral illness, asthma exacerbation, bronchitis, pneumonia, tension headache. Do not suspect sepsis at 10:30a. No red flag findings concerning for carotid artery dissection, encephalitis, meningitis, pseudotumor, SAH, temporal arteritis/giant cell arteritis. Plan: labs, viral swabs, chest x-ray, CT head Labs notable for leukocytosis, with left shift, normal BNP, chronically elevated alk phos, no significant electrolyte abnormalities. X-ray notable for no evidence of pneumonia. CT head notable for no acute ICH, mass/lesion, infarction. My interpretation is in agreement with the radiologist's interpretation. Low suspicion for pancreatitis as patient denies abdominal pain and abdomen is soft and nontender. Given ongoing symptoms will treat patient with course of doxycycline, instructed her to follow up with PCP. Will also prescribe 2 Fioricet at patient request in case headache worsens today. Patient states she is seeing her PCP on 01/29, instructed patient to keep this appointment and discuss with PCP that her white blood cell count was elevated at today's visit and should have labs repeated. Return precautions discussed at bedside. Patient verbalized understanding of and agreement with plan. Differential Diagnosis Differential Diagnoses: The differential diagnosis associated with the presentation includes As per MDM. Admission/Observation Consideration of admission/observation: Escalation of care including admission/observation considered Patient would have been admitted to the hospital had their work up had any findings where hospital admission was appropriate and their clinical presentation warranted hospital admission. Lab Data [facility] Lab Attestation statement: I reviewed the patient's lab results. As per MDM. 01/28/24 11:17 01/28/24 11:17 Labs: Lab Results 01/28/24 01/28/24 Range/Units 10:26 11:17 WBC 23.3 H (4.8-10.8) X10*3/uL RBC 4.62 (4.20-5.50) X10*6/uL Hgb 13.2 (12.0-16.0) g/dl Hct 38.7 (37.0-47.0) % MCV 83.8 (80.0-98.0) fL MCH 28.6 (27.0-33.0) pg MCHC 34.1 (31.0-35.0) g/dl RDW 13.2 (11.0-16.0) % Plt Count 239 (160-400) X10*3/uL MPV 10.0 (9.4-12.3) fL Immature Gran % (Auto) 0.9 H (0.0-0.4) % Neut % (Auto) 87.4 H (45-73) % Lymph % (Auto) 7.2 L (20-40) % Ellsworth % (Auto) 4.1 (2-11) % Eos % (Auto) 0.1 (0-4) % Baso % (Auto) 0.3 (0-2) % Lymph # (Auto) 1.7 (1.2-4.9) X10*3/uL Ellsworth # (Auto) 1.0 (0.1-1.2) X10*3/uL Eos # (Auto) 0.0 (0.0-0.4) X10*3/uL Baso # (Auto) 0.1 (0.0-0.2) X10*3/uL Abs Immat Gran (auto) 0.22 H (0.00-0.03) X10*3/uL Absolute Neuts (auto) 20.3 H (2.0-8.3) x10*3/uL Absolute Nucleated RBC 0.000 (0.0-0.012) X10*3/uL Nucleated RBC % (auto) 0.0 (0.0-0.2) /100WBC Smear Tech's Comments VERIFIED Sodium 137 (135-145) mmol/L Potassium 3.7 (3.3-5.1) mmol/L Chloride 103 (96-108) mmol/L Carbon Dioxide 24 (22-29) mmol/L Anion Gap 14 (12-20) BUN 11 (9-16) mg/dL Creatinine 0.83 (0.5-1.4) mg/dL Estim Creat Clear Calc 79.6 Estimated GFR > 60 Random Glucose 105 (60-115) mg/dL Calcium 9.3 D (8.4-10.2) mg/dL Total Bilirubin 0.9 (0.0-1.0) mg/dL AST 13 (5-31) U/L ALT 11 (0-31) U/L Alkaline Phosphatase 131 H (39-117) U/L B-Natriuretic Peptide < 10 (<100) pg/mL Total Protein 7.9 (6.5-8.0) g/dL Albumin 4.2 (3.5-5.0) g/dL Influenza Type A (PCR) NEGATIVE (Negative) Influenza Type B (PCR) NEGATIVE (Negative) RSV RNA Qual (PCR) NEGATIVE (Negative) SARS-CoV-2 RNA (RT-PCR) NEGATIVE (Negative) Independent Interpretation I performed an independent interpretation of an: Plain X-Ray and CT Scan Interpretation: No evidence of pneumonia on chest x-ray CT head notable for no acute abnormalities Radiology Impression Discussion of test interpretation with radiology: I have reviewed the radiologist's reading. Radiologist Impression: CT/CT head/brain wo IV con IMPRESSION: 1. Unchanged Normal CT scan of the brain. 2. No intracranial hemorrhage or skull fracture is seen. 3. No evidence of space occupying lesion could be found. 4. The current plain CT scan of the brain shows no diagnostic evidence of acute cerebral infarction. XR/XR chest 2V IMPRESSION: Unremarkable examination. External Record Review External record reviewed: Inpatient record, Office record and Outpatient record Prescription Management I considered prescription management with: Pain Medication and Antibiotic Discharge Plan Discharge Clinical Impression: Shortness of breath, Headache Patient Disposition: Home, Self-Care Instructions: Asthma (DC), Acute Headache (DC), How Your Lungs Work (ED), Shortness of Breath (ED) Additional Instructions: You were evaluated in the emergency department today for shortness of breath and headache. The CT scan of your brain was normal. You are being treated with a course of antibiotics for your ongoing cough and shortness of breath. Please follow-up with your sports complex attendant and keep your appointment with your PCP on 01/29. Please mention to your PCP that your white blood cell count was elevated during your ED visit. We recommend having your labs rechecked when you see your PCP. Return to the emergency department if you develop chest pain, palpitations, increasing shortness of breath or difficulty breathing, fever 100.4? F or greater or any other concerning symptoms. Prescriptions: New doxycycline hyclate 100 mg capsule 100 mg PO BID Qty: 10 0RF vxrihzevva-viwwjwpsehani-dyie [Fioricet] 50-300-40 mg capsule 1 cap PO Q8H PRN (Reason: headache) Qty: 2 0RF No Action aspirin [Adult Aspirin Regimen] 81 mg tablet,delayed release (DR/EC) 81 mg PO DAILY multivitamin Tablet 1 tab PO DAILY fluticasone furoate-vilanterol [Breo Ellipta] 200-25 mcg/dose blister with device 1 inh inhalation DAILY 30 Days Qty: 60 11RF Print Language: Namibian
[2024-01-28] MEDS: Ketorolac Tromethamine 30 MG/ML VIAL IM (11:08)
[2024-01-28] MEDS: Acetaminophen 325 MG TABLET 975 MG PO (11:08)
[2024-01-28 11:27] LABS: Basophils Absolute Auto 0.1 X10*3/uL (0.0-0.2); Basophils Percent Auto 0.3 % (0-2); Eosinophils Percent Auto 0.1 % (0-4); Hematocrit 38.7 % (37.0-47.0); Hemoglobin 13.2 g/dl (12.0-16.0); Imm Gran Abs Auto 0.22 X10*3/uL (0.00-0.03); Imm Gran Pct Auto 0.9 % (0.0-0.4); Lymphocytes Absolute Auto 1.7 X10*3/uL (1.2-4.9); Lymphocytes Percent Auto 7.2 % (20-40); MANUAL DIFF FLAG SCAN; Mean Corpuscular HGB Conc 34.1 g/dl (31.0-35.0); Mean Corpuscular Hemoglobin 28.6 pg (27.0-33.0); Mean Corpuscular Volume 83.8 fL (80.0-98.0); Monocytes Percent Auto 4.1 % (2-11); Neutrophils Absolute Auto 20.3 x10*3/uL (2.0-8.3); Neutrophils Percent Auto 87.4 % (45-73); Platelet Count 239 X10*3/uL (160-400); Red Blood Count 4.62 X10*6/uL (4.20-5.50); Red Cell Distribution Width 13.2 % (11.0-16.0); SCAN SMEAR FLAG 1; White Blood Count 23.3 X10*3/uL (4.8-10.8)
[2024-01-28 11:43] LABS: B Type Natriuretic Peptide < 10 pg/mL (<100)
[2024-01-28 11:46] LABS: Alanine Aminotransferase 11 U/L (0-31); Albumin Level 4.2 g/dL (3.5-5.0); Alkaline Phosphatase 131 U/L (39-117); Anion Gap 14 (12-20); Aspartate Amino Transferase 13 U/L (5-31); Bilirubin Total 0.9 mg/dL (0.0-1.0); Blood Urea Nitrogen 11 mg/dL (9-16); Calcium 9.3 mg/dL (8.4-10.2); Carbon Dioxide 24 mmol/L (22-29); Chloride 103 mmol/L (96-108); Creatinine Clr Calc Pharmacy 79.6; Estimated Glomerular Filt Rate > 60; Glucose Random 105 mg/dL (60-115); Potassium 3.7 mmol/L (3.3-5.1); Sodium 137 mmol/L (135-145); Total Protein 7.9 g/dL (6.5-8.0)
[2024-01-28 11:50] LABS: Influenza A PCR NEGATIVE (Negative); Influenza B PCR NEGATIVE (Negative); Resp Syncy Virus RNA Qual PCR NEGATIVE (Negative); SARS COV2 PCR INHOUSE NEGATIVE (Negative)
[2024-01-28 12:00] VITALS: BP 111/70; PULSE 60; RESP 16; TEMP 37.1; O2SAT 99
[2024-01-28 12:16] LABS: SLIDE REVIEW VERIFIED
[2024-01-28 13:13] VITALS: BP 111/70; PULSE 60; RESP 16; TEMP 37.1; O2SAT 99
== END 2024-01-28 13:14 | disposition home or self-care (01) ==
PROVIDERS: Registered Nurse Emergency; Emergency Provider Student in an Organized Health Care Education/Training Program; PCP Family Medicine
DX: R06.02 Shortness of breath (principal); R51.9 Headache, unspecified; R42 Dizziness and giddiness; Z11.52 Encounter for screening for COVID-19; Z20.822 Contact with and (suspected) exposure to COVID-19; Z79.899 Other long term (current) drug therapy
CPT/HCPCS: 0241U; 36415; 70450; 71046; 80053; 83880; 85025; 96372; 99284; J1885

== ENCOUNTER 2024-03-16 09:01 | Outpatient (AMB) | payer MEDICAID, SELFPAY ==
[2024-03-16 09:15] VITALS: PULSE 60; O2SAT 98; BMI 34.9
--- NOTE | 2024-03-16 09:15 | A.OFFVIS_ITS ---
Vital Signs 03/16/24 09:15 Height 5 ft 6 in Weight 216 lb 0.848 oz BMI 34.9 Pulse 60 Pulse Source Pulse Oximeter Pulse Oximetry (%) 98 Oxygen Delivery Method Room Air Intake Visit Reasons: Wheezing Sterilization Specialist Required: No Allergies ENVIRONMENTAL Allergy (Intermediate, Uncoded 03/16/24 09:16) UPPER RESPIRATORY IRRITATION HPI Comments Details: 03/16/2024 the patient is here for a pulmonary follow-up visit. The patient is 6 with a history of asthma and cough. She seems to be doing better. She has been on the Breo. She does not use it all the time. She has a rescue inhaler. Her cough is significantly better. She denies any significant wheezing. We did review her chest x-ray from January that looked clear. In addition to that she had blood work demonstrating leukocytosis. She had an infection. The patient seems doing better at this time. Will go ahead and continue her on rescue inhaler. She understands the Breo should be taken daily in that will work as a rescue inhaler. [facility] Medical History Pneumonia Reactive airway disease Cough Hyperlipidemia History of hypertension COVID-19 Vertigo Vitamin D deficiency Anemia Obesity Hepatitis C Family History Mother Anemia Social History Alcohol intake: current Alcohol intake frequency: a few times a month Patient Tobacco Use Status: Former Tobacco user Review of Systems Const Denies fever(s) Eyes Reports no additional complaints ENT Reports nasal congestion and Reports nasal discharge Card Denies chest pain Resp Reports cough and Reports wheezing GI Reports no additional complaints Musc Reports no additional complaints Skin/Breast Denies rash Neuro Reports no additional complaints Psych Reports no additional complaints Freddy/Lymph Denies easy bruising Aller/Immun Reports wheezing Physical Exam Vital Signs: Last Vital Signs Pulse 60 03/16/24 09:15 Pulse Ox 98 03/16/24 09:15 Oxygen Delivery Method Room Air 03/16/24 09:15 BMI result Body Mass Index 34.9 Const General: comfortable HEENT Head: Yes normocephalic Neck Neck: Yes supple Chest Chest palpation & inspection: normal inspection of the chest Resp Effort & Inspection: normal respiratory effort and prolonged expiratory phase Auscultation: no wheezes and diminished lung sounds Cardio Heart sounds: S1 normal heart sound present and S2 normal heart sound present Skin General skin exam: no rashes or lesions noted Extrem General: Yes no clubbing, cyanosis or edema Assessment & Plan Assessment & Plan (1) Cough: Code(s): R05.9 - Cough, unspecified Category: Medical Qualifiers: Cough type: subacute Qualified Code(s): R05.2 - Subacute cough (2) Reactive airway disease: Code(s): J45.909 - Unspecified asthma, uncomplicated Category: Medical Qualifiers: Asthma complication type: with acute exacerbation Asthma persistence: persistent Asthma severity: moderate Qualified Code(s): J45.41 - Moderate persistent asthma with (acute) exacerbation Plan continue Breo ROSA as needed bloodwork F/U 10-12 months Orders: Orders Complete Blood Count Auto Diff Today R05.2 - Subacute cough Immunoglobulins,IgG IgA IgM Today R05.2 - Subacute cough Immunoglobulin E Today R05.2 - Subacute cough Coding Level of Care Code Est Pt Level 4 (91434) Diagnoses Subacute cough R05.2 Cough type: subacute Moderate persistent reactive airway disease with acute exacerbation J45.41 Asthma complication type: with acute exacerbation Asthma persistence: persistent Asthma severity: moderate Time Spent (min) 16
== END 2024-03-16 09:34 | disposition home or self-care (01) ==
PROVIDERS: PCP Family Medicine; Visit Provider Hospitalist
DX: R05.2 Subacute cough (principal); J45.41 Moderate persistent asthma with (acute) exacerbation
CPT/HCPCS: 99214

== ENCOUNTER 2024-03-16 09:01 | Outpatient (REF) | payer MEDICAID, SELFPAY ==
[2024-03-16 09:49] LABS: MANUAL DIFF FLAG NO
[2024-03-16 10:24] LABS: Basophils Percent Auto 0.6 % (0-2); Eosinophils Absolute Auto 0.3 X10*3/uL (0.0-0.4); Eosinophils Percent Auto 3.8 % (0-4); Hematocrit 37.2 % (37.0-47.0); Hemoglobin 12.2 g/dl (12.0-16.0); Imm Gran Abs Auto 0.03 X10*3/uL (0.00-0.03); Imm Gran Pct Auto 0.4 % (0.0-0.4); Lymphocytes Percent Auto 28.1 % (20-40); Mean Corpuscular HGB Conc 32.8 g/dl (31.0-35.0); Mean Corpuscular Hemoglobin 27.9 pg (27.0-33.0); Mean Corpuscular Volume 85.1 fL (80.0-98.0); Mean Platelet Volume 10.1 fL (9.4-12.3); Monocytes Absolute Auto 0.5 X10*3/uL (0.1-1.2); Monocytes Percent Auto 7.2 % (2-11); Neutrophils Absolute Auto 4.2 x10*3/uL (2.0-8.3); Neutrophils Percent Auto 59.9 % (45-73); Platelet Count 220 X10*3/uL (160-400); Red Blood Count 4.37 X10*6/uL (4.20-5.50); Red Cell Distribution Width 12.9 % (11.0-16.0)
[2024-03-17 13:54] LABS: Immunoglobulin E 125 kU/L (<OR=114)
[2024-03-18 22:24] LABS: IgA 340 mg/dL (70-320); IgG 1369 mg/dL (600-1540); IgM 65 mg/dL (50-300)
== END 2024-03-16 09:02 | disposition home or self-care (01) ==
LOC: HO.LAB 09:01
PROVIDERS: PCP Family Medicine; Visit Provider Hospitalist
DX: J45.41 Moderate persistent asthma with (acute) exacerbation (principal); R05.2 Subacute cough
CPT/HCPCS: 36415; 82784; 82785; 85025; 99212

== ENCOUNTER 2024-03-26 09:19 | Outpatient (REF) | payer MEDICAID, SELFPAY ==
--- NOTE | ~2024-03-26 | XR_ITS ---
EXAMINATION: XR FOOT, RIGHT CLINICAL INFORMATION: Right foot pain. Patient states pain is on the bottom of her foot, denies injury. Pain for a few months. COMPARISON: 05/14/2022 TECHNIQUE: AP, lateral, and oblique views of the right foot. FINDINGS: Moderate dorsal and plantar calcaneal spur formation. Moderate degenerative changes in the first metatarsophalangeal joint with joint space narrowing and hypertrophic change. Hallux valgus. XR/XR foot RT min 3V IMPRESSION: 1. Moderate degenerative changes first metatarsophalangeal joint. 2. Moderate dorsal and plantar calcaneal spur formation.
== END 2024-03-26 09:20 | disposition home or self-care (01) ==
LOC: HO.HHCX 09:19
PROVIDERS: Visit Provider Family Medicine
DX: M79.671 Pain in right foot (principal)
CPT/HCPCS: 73630

== ENCOUNTER 2024-04-09 08:13 | Outpatient (REF) | payer MEDICAID, SELFPAY ==
--- NOTE | ~2024-04-09 | XR_ITS ---
EXAMINATION: XR CHEST CLINICAL INFORMATION: Follow-up small focal opacity COMPARISON: January 28, 2024, December 15, 2023 TECHNIQUE: 2 views of the chest were obtained. FINDINGS: There is no gross pneumothorax. Heart size is normal. No pleural effusion. No new focal consolidation to suggest pneumonia. Mild degenerative changes in the thoracic spine. XR/XR chest 2V IMPRESSION: 1. No evidence of pneumonia. 2. Previously described small focal opacity is not appreciated on current exam.
--- NOTE | ~2024-04-09 | US_ITS ---
EXAMINATION: US ABDOMEN COMPLETE CLINICAL INFORMATION: Fatty liver. COMPARISON: CT abdomen and pelvis 05/25/2023. TECHNIQUE: Real-time imaging of the abdominal viscera. Limited visualization due to bowel gas. FINDINGS: PANCREAS: Limited visualization of pancreatic tail and head. Imaged portion of pancreatic body is unremarkable. ABDOMINAL AORTA: Limited visualization. Imaged portions of abdominal aorta are nonaneurysmal. INFERIOR VENA CAVA: Visualized portions are normal. LIVER: Hepatomegaly, 16 cm. Increased hepatic parenchymal heterogeneity and echogenicity could be associated with hepatocellular disease/hepatic steatosis and substantially limits visualization. Correlation with liver function tests and clinical exam recommended to determine further management. GALLBLADDER: No gallstones. No gallbladder wall thickening. COMMON BILE DUCT: Normal in caliber measuring 0.5 cm in diameter. RIGHT KIDNEY: No hydronephrosis. No renal calculi. Limited visualization. 5.8 x 4.8 x 4.8 cm right renal upper pole cyst with thin avascular septation redemonstrated. 0.9 cm midpole cyst. There is no specific indication for additional imaging. The kidney measures 10.7 cm in maximum dimension. LEFT KIDNEY: No hydronephrosis. No renal calculi. Limited visualization. The kidney measures 11.0 cm in maximum dimension. SPLEEN: 2.1 x 1.8 x 2.0 cm soft tissue mass adjacent to the spleen is characteristic of a splenule. The spleen measures 8.8 cm in maximum dimension. FREE FLUID: None. US/US abdomen complete IMPRESSION: 1. Hepatomegaly, 16 cm. Increased hepatic parenchymal heterogeneity and echogenicity could be associated with hepatocellular disease/hepatic steatosis and substantially limits visualization. Correlation with liver function tests and clinical exam recommended to determine further management. 2. Right renal cysts, largest 5.8 cm with thin avascular septation. There is no specific indication for additional imaging. 3. A 2.1 cm soft tissue mass adjacent to the spleen is characteristic of a splenule.
== END 2024-04-09 08:14 | disposition home or self-care (01) ==
LOC: HO.US 08:13
PROVIDERS: PCP Family Medicine; Visit Provider Family Medicine
DX: K76.0 Fatty (change of) liver, not elsewhere classified (principal); R93.89 Abnormal findings on diagnostic imaging of other specified body structures
CPT/HCPCS: 71046; 76700

== ENCOUNTER 2024-09-02 08:10 | Outpatient (REF) | payer MEDICAID, SELFPAY ==
[2024-09-02 11:19] LABS: Hematocrit 42.2 % (37.0-47.0); Hemoglobin 13.5 g/dl (12.0-16.0); Mean Corpuscular Hemoglobin 27.4 pg (27.0-33.0); Mean Corpuscular Volume 85.8 fL (80.0-98.0); Mean Platelet Volume 10.7 fL (9.4-12.3); Platelet Count 252 X10*3/uL (160-400); Red Blood Count 4.92 X10*6/uL (4.20-5.50); Red Cell Distribution Width 13.1 % (11.0-16.0); White Blood Count 7.2 X10*3/uL (4.8-10.8)
[2024-09-02 11:37] LABS: Alanine Aminotransferase 13 U/L (0-31); Albumin Level 4.2 g/dL (3.5-5.0); Alkaline Phosphatase 133 U/L (39-117); Anion Gap 10 (12-20); Aspartate Amino Transferase 19 U/L (5-31); Bilirubin Direct 0.1 mg/dL (0.0-0.5); Bilirubin Total 0.4 mg/dL (0.0-1.0); Blood Urea Nitrogen 16 mg/dL (9-16); Calcium 9.3 mg/dL (8.4-10.2); Carbon Dioxide 30 mmol/L (22-29); Chloride 103 mmol/L (96-108); Cholesterol 163 mg/dL (<200); Estimated Glomerular Filt Rate > 60; Glucose Random 96 mg/dL (60-115); HDL Cholesterol 53 mg/dL (>40); LDL Cholesterol Calculated 92 mg/dL (<100); Potassium 3.6 mmol/L (3.3-5.1); Sodium 139 mmol/L (135-145); Total Protein 7.9 g/dL (6.5-8.0); Triglycerides 90 mg/dL (<150)
[2024-09-02 11:50] LABS: HIV AB/AG Nonreactive (Nonreactive); HIV Num 1 0.05 S/CO (0.00-0.99); ~HepC Num1 11.07 S/CO (0.00-0.79); ~Hepatitis C Antibody Reactive (Nonreactive)
[2024-09-02 11:54] LABS: Appearance Urine Clear; Color Urine Yellow; Glucose Urine UA Negative (Negative); Leukocyte Esterase Urine Negative (Negative); Nitrite Urine Negative (Negative); PH 5.5 (5.0-9.0); UMIC TRIGGER UA YES; Urine Blood Small (1+) (Negative); Urine Ketones Negative (Negative); Urine Protein Negative (Neg-Trace)
[2024-09-02 11:55] LABS: Thyroid Stimulating Hormone 2.34 uIU/mL (0.32-4.0); Vitamin D 25-OH Total 22.5 ng/mL (>30)
[2024-09-02 12:11] LABS: Bacteria Urine Trace (None Seen); Hyaline Casts Urine 0-2 /LPF (0-2); RBC Urine 0-2 /HPF (0-2); WBC Urine 0-5 /HPF (0-5)
[2024-09-02 12:19] LABS: Creatinine Urine 165.12 mg/dL; Microalbum/Creatinine Ratio Ur 16.3 ug/mg cr (<30)
[2024-09-02 14:16] LABS: Estimated Average Glucose 114 mg/dL; Hemoglobin A1C 126.4288 umol/L; Hemoglobin A1c % 5.6 % (<6.0); Total Hemoglobin (HGBA1C) 3381.4967 umol/L
[2024-09-02 18:46] LABS: CT PCR NOT DETECTED (Not Detect.); NG PCR NOT DETECTED (Not Detect.)
[2024-09-06 12:58] LABS: Alpha Fetoprotein 1.6 ng/mL
[2024-09-06 15:39] LABS: HCV Log PCR <1.18 NOT DETECTED Log IU/mL (NOT DETECTED); HepC Viral Load <15 NOT DETECTED IU/mL (NOT DETECTED)
[2024-09-06 15:43] LABS: RPR Rapid Plasma Reagin NON-REACTIVE (NON-REACTIVE)
== END 2024-09-02 08:11 | disposition home or self-care (01) ==
LOC: HO.HHCL 08:10
PROVIDERS: Visit Provider Family Medicine
DX: Z00.00 Encounter for general adult medical examination without abnormal findings (principal); E78.49 Other hyperlipidemia; K76.0 Fatty (change of) liver, not elsewhere classified; F32.A Depression, unspecified; Z86.79 Personal history of other diseases of the circulatory system; R31.29 Other microscopic hematuria; F17.201 Nicotine dependence, unspecified, in remission; J45.40 Moderate persistent asthma, uncomplicated; M79.671 Pain in right foot; M79.672 Pain in left foot; L65.9 Nonscarring hair loss, unspecified
CPT/HCPCS: 36415; 80048; 80061; 80076; 81001; 82043; 82105; 82306; 82570; 83036; 84439; 84443; 85027; 86592; 86803; 87389; 87491; 87522; 87591

== ENCOUNTER 2024-09-02 09:36 | Emergency (ER) | payer MEDICAID, SELFPAY ==
--- NOTE | ~2024-09-02 | XR_ITS ---
EXAMINATION: XR CHEST CLINICAL INFORMATION: Chest pain COMPARISON: X-ray dated April 09, 2024 TECHNIQUE: 2 views of the chest were obtained. FINDINGS: No consolidation, pleural effusion or pneumothorax. Cardiomediastinal silhouette demonstrates normal size. Multilevel thoracic and upper lumbar spondylosis. XR/XR chest 2V IMPRESSION: No acute airspace disease. Electronically signed by: Cornelius Dill MD 09/02/2024 12:57 PM EST
[2024-09-02 09:42] VITALS: BP 150/61; BP 180/84; PULSE 52; PULSE 56; RESP 18; TEMP 36.6; O2SAT 100; O2SAT 98; BMI 36.3
--- NOTE | 2024-09-02 09:46 | ECG_ITS ---
Test Reason : CHEST PAIN Blood Pressure : / mmHG Vent. Rate : 053 BPM Atrial Rate : 053 BPM P-R Int : 164 ms QRS Dur : 088 ms QT Int : 430 ms P-R-T Axes : 038 -20 -06 degrees QTc Int : 403 ms Sinus bradycardia Moderate voltage criteria for LVH, may be normal variant ( R in aVL , Itz product ) Nonspecific T wave abnormality Abnormal ECG When compared with ECG of 27-APR-2022 13:38, No significant change was found Referred By: Hilaria Ocampo Electronically Signed By:Jefry Muirllo
--- NOTE | 2024-09-02 10:03 | MHC.EDTECH ---
EKG taken and read ny the ED provider, patient resting quietly in the bed within call joy in each.
[2024-09-02 10:24] LABS: MANUAL DIFF FLAG NO
[2024-09-02 10:28] LABS: Basophils Percent Auto 0.6 % (0-2); Eosinophils Absolute Auto 0.3 X10*3/uL (0.0-0.4); Hematocrit 39.9 % (37.0-47.0); Imm Gran Abs Auto 0.03 X10*3/uL (0.00-0.03); Imm Gran Pct Auto 0.4 % (0.0-0.4); Lymphocytes Absolute Auto 1.7 X10*3/uL (1.2-4.9); Lymphocytes Percent Auto 23.1 % (20-40); Mean Corpuscular HGB Conc 32.6 g/dl (31.0-35.0); Mean Corpuscular Volume 85.8 fL (80.0-98.0); Mean Platelet Volume 10.1 fL (9.4-12.3); Monocytes Absolute Auto 0.5 X10*3/uL (0.1-1.2); Monocytes Percent Auto 6.3 % (2-11); Neutrophils Absolute Auto 4.8 x10*3/uL (2.0-8.3); Neutrophils Percent Auto 65.6 % (45-73); Platelet Count 226 X10*3/uL (160-400); Red Blood Count 4.65 X10*6/uL (4.20-5.50); Red Cell Distribution Width 13.1 % (11.0-16.0); White Blood Count 7.3 X10*3/uL (4.8-10.8)
[2024-09-02 10:31] LABS: Prothrombin Time 11.1 SEC (10.9-12.4)
[2024-09-02 10:46] LABS: Alanine Aminotransferase 13 U/L (0-31); Alkaline Phosphatase 124 U/L (39-117); Anion Gap 10 (12-20); Aspartate Amino Transferase 18 U/L (5-31); Bilirubin Direct 0.1 mg/dL (0.0-0.5); Bilirubin Total 0.4 mg/dL (0.0-1.0); Blood Urea Nitrogen 15 mg/dL (9-16); Calcium 8.9 mg/dL (8.4-10.2); Carbon Dioxide 28 mmol/L (22-29); Chloride 105 mmol/L (96-108); Creatinine Clr Calc Pharmacy 80.6; Estimated Glomerular Filt Rate > 60; Glucose Random 92 mg/dL (60-115); Lipase 11 U/L (8-78); Magnesium 1.9 mg/dL (1.6-2.6); Potassium 3.9 mmol/L (3.3-5.1); Sodium 139 mmol/L (135-145); Total Protein 7.4 g/dL (6.5-8.0)
[2024-09-02 10:54] LABS: Troponin-I High Sensitivity 4.2 ng/L (<3.5-17.0)
[2024-09-02 11:02] LABS: Influenza A PCR NEGATIVE (Negative); Influenza B PCR NEGATIVE (Negative); Resp Syncy Virus RNA Qual PCR NEGATIVE (Negative); SARS COV2 PCR INHOUSE NEGATIVE (Negative)
--- NOTE | 2024-09-02 11:43 | ED_ITS ---
HPI - Chest Pain General Chief Complaint: Chest Pain Stated Complaint: CP Time Seen by Provider: 09/02/24 11:20 Source: patient Limitations: no limitations History of Present Illness ED Provider: Shireen liz PA-C HPI narrative: 64-year-old female with a history of hypertension and hyperlipidemia presents with chest pain x1 day. Pain over left anterior chest, is nonradiating. Pain worse with palpation of chest wall, movement of left upper extremity and movement of the torso. Patient states she performs a great deal of physical activity at work. Denies recent cough or cold symptoms, fever, diaphoresis associated with the chest pain. No abdominal pain, nausea or vomiting. Related Data Home Medications ?Medication ?Instructions ?Recorded ?Confirmed aspirin 81 mg tablet,delayed 81 mg PO DAILY 07/24/22 01/06/24 release (Adult Aspirin Regimen) multivitamin 1 tab PO DAILY 12/15/23 01/06/24 Previous Rx's ?Medication ?Instructions ?Recorded fluticasone furoate 200 1 inh inhalation DAILY 30 days #60 12/15/23 mcg-vilanterol 25 mcg/dose ea inhalation powder (Breo Ellipta) hbxspgetbo-mvyphfgmxzfyb-sitqhian 1 cap PO Q8H PRN headache #2 caps 01/28/24 50 mg-300 mg-40 mg capsule (Fioricet) methocarbamol 750 mg tablet 750 mg PO TID PRN pain #14 tabs 09/02/24 Allergies Allergy/AdvReac Type Severity Reaction Status Date / Time ENVIRONMENTAL Allergy Intermediate UPPER Uncoded 09/02/24 09:45 RESPIRATORY IRRITATION Review of Systems 2 Review of Systems: Yes all other systems are reviewed and are negative Constitutional: Constitutional: Denies fatigue and Denies fever(s) Cardiovascular: Cardiovascular: Reports chest pain and Denies dyspnea Respiratory: Respiratory: Denies cough and Denies dyspnea Gastrointestinal: Gastrointestinal: Denies abdominal pain and Denies nausea Endocrine: Endocrine: Denies fatigue PMFSH Past Medical History Attestation statement: The following information was validated with the patient. Medical History Pneumonia Reactive airway disease Cough Hyperlipidemia History of hypertension COVID-19 Vertigo Vitamin D deficiency Anemia Obesity Hepatitis C Family History Family History Mother Anemia Social History Social History Alcohol intake: current Alcohol intake frequency: a few times a month Patient Tobacco Use Status: Former Tobacco user Smoked in Last 30 Days: No Use of substances other than those prescribed or required for medical reasons: No Advance Directives: No Advance Directives Information Provided: No Patient : No Physical Exam 2 Vital Signs: Vital Signs: Last Vital Signs Temp 97.9 F 09/02/24 12:25 Pulse 52 09/02/24 12:25 Resp 13 09/02/24 12:25 BP 148/76 H 09/02/24 12:25 Pulse Ox 100 09/02/24 12:25 O2 Del Method Room Air 09/02/24 12:25 BMI result Body Mass Index 36.3 Const: Other: Alert, overall well-appearing Orientation/consciousness: patient oriented x3 Chest: Other: Pain elicited with left anterior chest wall with palpation, no deformity, no overlying erythema or ecchymosis. Pain also elicited with movement of the torso and left upper extremity. Resp: Other: Nonlabored respiration Cardio: Other: Normal peripheral perfusion Skin: Other: Warm dry no rash Neuro: General: patient oriented x3, no focal motor deficits and CN's II-XI intact bilaterally Psych: Other: Calm cooperative Medications Administered Discontinued Medications Generic Name Dose Route Start Last Admin Trade Name Alejandroq PRN Reason Stop Dose Admin Ketorolac Tromethamine 15 mg 09/02/24 11:41 09/02/24 12:04 Ketorolac Tromethamine 15 Mg/Ml Vial IVPUSH 09/02/24 11:42 15 mg ONCE ONE Administration Methocarbamol 750 mg 09/02/24 11:41 09/02/24 12:04 Methocarbamol 750 Mg Tablet PO 09/02/24 11:42 750 mg ONCE ONE Administration Medical Decision Making Medical Decision Making MDM Narrative: 64-year-old female with a history of hypertension and hyperlipidemia presents with chest pain x1 day. Pain over left anterior chest, is nonradiating. Pain worse with palpation of chest wall, movement of left upper extremity and movement of the torso. Patient states she performs a great deal of physical activity at work. Denies recent cough or cold symptoms, fever, diaphoresis associated with the chest pain. No abdominal pain, nausea or vomiting. Problem: Hypertension, hyperlipidemia History: Per patient I have considered the following differential diagnoses: ACS, chest wall strain, costochondritis, pneumonia Plan: Patient's exam was consistent with chest wall strain, and she has a mechanism to support it. We will give Toradol and methocarbamol. ACS was considered, the patient does have multiple risk factors for coronary artery disease, screening labs including cardiac enzymes, EKG and chest x-ray were obtained. Thought about pneumonia costochondritis, however the patient has not had any cough or cold symptoms, is afebrile. I have independently reviewed the following tests: Labs: No leukocytosis, not anemic, no electrolyte abnormality, 1st troponin 4.2, viral panel neg, trop 4.8 EKG: Sinus bradycardia, rate of 53, no ischemic changes no ectopy Chest x-ray:DELMER #: [id number] XR/XR chest 2V IMPRESSION: No acute airspace disease. Electronically signed by: Cornelius Dill MD 09/02/2024 12:57 PM [facility] Lab Data 09/02/24 10:20 09/02/24 10:20 Labs: Lab Results 09/02/24 09/02/24 09/02/24 Range/Units 10:20 11:46 11:56 WBC 7.3 (4.8-10.8) X10*3/uL RBC 4.65 (4.20-5.50) X10*6/uL Hgb 13.0 (12.0-16.0) g/dl Hct 39.9 (37.0-47.0) % MCV 85.8 (80.0-98.0) fL MCH 28.0 (27.0-33.0) pg MCHC 32.6 (31.0-35.0) g/dl RDW 13.1 (11.0-16.0) % Plt Count 226 (160-400) X10*3/uL MPV 10.1 (9.4-12.3) fL Immature Gran % (Auto) 0.4 (0.0-0.4) % Neut % (Auto) 65.6 (45-73) % Lymph % (Auto) 23.1 (20-40) % Frederick % (Auto) 6.3 (2-11) % Eos % (Auto) 4.0 (0-4) % Baso % (Auto) 0.6 (0-2) % Lymph # (Auto) 1.7 (1.2-4.9) X10*3/uL Frederick # (Auto) 0.5 (0.1-1.2) X10*3/uL Eos # (Auto) 0.3 (0.0-0.4) X10*3/uL Baso # (Auto) 0.0 (0.0-0.2) X10*3/uL Abs Immat Gran (auto) 0.03 (0.00-0.03) X10*3/uL Absolute Neuts (auto) 4.8 (2.0-8.3) x10*3/uL Absolute Nucleated RBC 0.000 (0.0-0.012) X10*3/uL Nucleated RBC % (auto) 0.0 (0.0-0.2) /100WBC PT 11.1 (10.9-12.4) SEC INR 1.0 (0.9-1.1) APTT 35.0 (26.0-36.8) SEC Sodium 139 (135-145) mmol/L Potassium 3.9 (3.3-5.1) mmol/L Chloride 105 (96-108) mmol/L Carbon Dioxide 28 (22-29) mmol/L Anion Gap 10 L (12-20) BUN 15 (9-16) mg/dL Creatinine 0.85 (0.5-1.4) mg/dL Estim Creat Clear Calc 80.6 Estimated GFR > 60 Random Glucose 92 (60-115) mg/dL Calcium 8.9 (8.4-10.2) mg/dL Magnesium 1.9 (1.6-2.6) mg/dL Total Bilirubin 0.4 (0.0-1.0) mg/dL Direct Bilirubin 0.1 (0.0-0.5) mg/dL AST 18 (5-31) U/L ALT 13 (0-31) U/L Alkaline Phosphatase 124 H (39-117) U/L Troponin I High Sens 4.2 < 2.7 (<3.5-17.0) ng/L Total Protein 7.4 (6.5-8.0) g/dL Albumin 4.0 (3.5-5.0) g/dL Lipase 11 (8-78) U/L Urine Color Yellow Urine Appearance Clear Urine pH 5.5 (5.0-9.0) Ur Specific [place] 1.015 (1.005-1.025) Urine Protein Negative (Neg-Trace) mg/dL Urine Glucose (UA) Negative (Negative) mg/dL Urine Ketones Negative (Negative) mg/dL Urine Blood Small (1+) H (Negative) Urine Nitrite Negative (Negative) Ur Leukocyte Esterase Negative (Negative) Urine RBC 3-5 H (0-2) /HPF Urine WBC 0-5 (0-5) /HPF Ur Squamous Epith Cells 0-2 (0-2) /HPF Urine Bacteria None Seen (None Seen) Hyaline Casts 0-2 (0-2) /LPF Influenza Type A (PCR) NEGATIVE (Negative) Influenza Type B (PCR) NEGATIVE (Negative) RSV RNA Qual (PCR) NEGATIVE (Negative) SARS-CoV-2 RNA (RT-PCR) NEGATIVE (Negative) Discharge Plan Discharge Clinical Impression: Chest wall pain Patient Disposition: Home, Self-Care Instructions: Chest Wall Pain (ED) Additional Instructions: Your exam was consistent with chest wall strain/pain. Given the physical nature of your job, you likely strained these muscles. See home care instructions. To note, all of your screening labs including 2 cardiac enzymes were normal. There were no concerning changes on her EKG in the chest x-ray was clear. Use hhoj-oko-urdcprx ibuprofen 600 mg taken every 6 hours with food, alternated with the muscle relaxant, methocarbamol. To note, the muscle relaxant we will cause drowsiness, you can not drive or operate machinery while taking this medication. Follow up with your primary care provider as needed. Prescriptions: New methocarbamol 750 mg tablet 750 mg PO TID PRN (Reason: pain) Qty: 14 0RF No Action uvbhgeahai-vqgnexcdkaaub-ylum [Fioricet] 50-300-40 mg capsule 1 cap PO Q8H PRN (Reason: headache) Qty: 2 0RF aspirin [Adult Aspirin Regimen] 81 mg tablet,delayed release (DR/EC) 81 mg PO DAILY multivitamin Tablet 1 tab PO DAILY fluticasone furoate-vilanterol [Breo Ellipta] 200-25 mcg/dose blister with device 1 inh inhalation DAILY 30 Days Qty: 60 11RF Stand Alone Forms: Work/School Release Print Language: [place]er
[2024-09-02] MEDS: Ketorolac Tromethamine 15 MG/ML VIAL IVPUSH (12:04)
[2024-09-02] MEDS: methocarbamoL 750 MG TABLET PO (12:04)
[2024-09-02 12:07] LABS: Appearance Urine Clear; Color Urine Yellow; Glucose Urine UA Negative (Negative); Leukocyte Esterase Urine Negative (Negative); Nitrite Urine Negative (Negative); PH 5.5 (5.0-9.0); Specific Gravity - Urine 1.015 (1.005-1.025); UMIC TRIGGER UACC YES; Urine Blood Small (1+) (Negative); Urine Ketones Negative (Negative); Urine Protein Negative (Neg-Trace)
[2024-09-02 12:15] LABS: Bacteria Urine None Seen (None Seen); Hyaline Casts Urine 0-2 /LPF (0-2); Squamous Epithelial Cell Urine 0-2 /HPF (0-2); WBC Urine 0-5 /HPF (0-5)
[2024-09-02 12:21] LABS: Troponin-I High Sensitivity < 2.7 ng/L (<3.5-17.0)
[2024-09-02 12:25] VITALS: BP 148/76; PULSE 52; RESP 13; TEMP 36.6; O2SAT 100
[2024-09-02 14:37] VITALS: BP 142/69; PULSE 54; RESP 16; TEMP 36.6; O2SAT 98
[2024-09-02 14:43] VITALS: BP 142/69; PULSE 54; RESP 16; TEMP 36.6; O2SAT 98
== END 2024-09-02 14:44 | disposition home or self-care (01) ==
PROVIDERS: Physician Assistant Medical; Emergency Provider Student in an Organized Health Care Education/Training Program; PCP Family Medicine
DX: R07.89 Other chest pain (principal); I10 Essential (primary) hypertension; M79.602 Pain in left arm; Z03.818 Encounter for observation for suspected exposure to other biological agents ruled out; Z79.899 Other long term (current) drug therapy; Z87.891 Personal history of nicotine dependence
CPT/HCPCS: 0241U; 36415; 71046; 80048; 80076; 81001; 81003; 83690; 83735; 84484; 85025; 85610; 85730; 93005; 96374; 99284; J1885

== ENCOUNTER → 2024-09-02 09:46 | Outpatient (BNV) | payer MEDICAID, SELFPAY | PROVIDERS: Emergency Provider Student in an Organized Health Care Education/Training Program; PCP Family Medicine; Visit Provider Radiology Diagnostic Radiology | DX: R07.9 Chest pain, unspecified (principal) | CPT/HCPCS: 71046 ==

== ENCOUNTER → 2024-09-02 09:46 | Outpatient (BNV) | payer MEDICAID, SELFPAY | PROVIDERS: Emergency Provider Student in an Organized Health Care Education/Training Program; PCP Family Medicine; Visit Provider Internal Medicine Cardiovascular Disease | DX: R00.1 Bradycardia, unspecified (principal); R94.31 Abnormal electrocardiogram [ECG] [EKG] | CPT/HCPCS: 93010 ==

== ENCOUNTER 2024-09-13 08:28 | Outpatient (REF) | payer MEDICAID, SELFPAY ==
--- NOTE | ~2024-09-13 | MM_ITS ---
EXAMINATION: MM SCREENING DIGITAL BREAST TOMOSYNTHESIS, BILATERAL CLINICAL INFORMATION: Screening. Asymptomatic. COMPARISON: Mammography: Comparison is made with available priors TECHNIQUE: Digital breast mammography with tomosynthesis is performed in both the craniocaudal and mediolateral oblique views along with computer-aided detection (CAD). FINDINGS: The breasts are heterogeneously dense, which may obscure small masses (ACR BI-RADS breast composition Category c). Bilateral focal asymmetries are stable. There are no significant masses, abnormal calcifications, or other abnormalities. MM/MM tomosynthesis screening BI IMPRESSION: No mammographic evidence of malignancy. ASSESSMENT: BI-RADS BI-RADS 2 - Benign Findings RECOMMENDATION: Routine annual mammography screening. 1 year F/U This examination should not preclude the clinical evaluation of a suspicious palpable abnormality. This patient's information was entered into a reminder system with a target due date for their next mammogram. Electronically signed by: Lina Redmond DO 09/22/2024 12:27 PM [facility]
[2024-09-13 09:14] LABS: Urine Cytology See Pathology rpt
== END 2024-09-13 08:29 | disposition home or self-care (01) ==
LOC: HO.MAMMO 08:28
PROVIDERS: PCP Family Medicine; Visit Provider Family Medicine
DX: Z12.31 Encounter for screening mammogram for malignant neoplasm of breast (principal); R31.29 Other microscopic hematuria
CPT/HCPCS: 77063; 77067; 88112

== ENCOUNTER → 2024-09-13 09:00 | Outpatient (BNV) | payer MEDICAID, SELFPAY | PROVIDERS: PCP Family Medicine; Visit Provider Internal Medicine | DX: Z12.31 Encounter for screening mammogram for malignant neoplasm of breast (principal) | CPT/HCPCS: 77063; 77067 ==

== ENCOUNTER 2024-10-29 09:14 | Outpatient (AMB) | payer MEDICAID, SELFPAY ==
--- NOTE | 2024-10-29 07:41 | MHC.OFFVIS ---
Intake Visit Reasons: Former Smoker Allergies ENVIRONMENTAL Allergy (Intermediate, Uncoded 09/02/24 09:45) UPPER RESPIRATORY IRRITATION HPI HPI Former Smoker: Details: Initial visit for this 64yo former smoker with a 20+PYH. Patient started smoking at age 14 for 48 years at 1/2 ppd. She quit in 2021. . Denies marijuana use. Denies second hand smoke exposure. Denies exposure to chemicals or substances like asbestos. . Denies known family history of lung cancer. Denies personal history of cancers. Denies chest CT in last year. . Denies recent travel outside the [place]. Denies recent respiratory illness or recent hospitalization for respiratory issues. Reports history of testing positive for COVID. Admits receiving COVID Vaccine. . Denies fever, chills, new/worsening cough, hemoptysis, hoarseness or dysphagia. Denies significant chest pain, significant dyspnea or unintentional weight loss. Patient Lung Cancer Screening Questionnaire reviewed with patient by provider. . Shared Decision Making Completed. Patient meets criteria. Discussed in detail with patient, the risk vs benefit of LDCT screening. Patient consents to proceed with scan. Discussed and encouraged continued smoking cessation. [facility] Medical History (Updated 10/29/24 @ 09:35 by Queta Vázquez PA-C) Hepatitis C History of hypertension Hyperlipidemia Anemia Reactive airway disease Personal history of nicotine dependence Pneumonia Cough Microscopic hematuria Vertigo Vitamin D deficiency Obesity History of COVID-19 Surgical History (Updated 09/21/24 @ 08:57 by Queta Vázquez PA-C) History of colonoscopy Family History Mother Anemia Social History (Updated 10/29/24 @ 09:35 by Queta Vázquez PA-C) Alcohol intake: current Alcohol intake frequency: a few times a month Patient Tobacco Use Status: Former Tobacco user Years Smoked: (onset 14yo, 1/2ppd x 48yrs, 20+PYH - quit 2021) Assessment & Plan Assessment & Plan (1) Personal history of nicotine dependence: Comment: (onset 14yo, 1/2ppd x 48yrs, 20+PYH - quit 2021) Code(s): Z87.891 - Personal history of nicotine dependence Category: Medical Plan: - SDM visit completed today in office. - Patient meets criteria for LDCT for lung cancer screening purposes and is asymptomatic. - Smoking cessation counseling offered. Patients can always call [phone]. - Will arrange for a LDCT scan of the chest for screening purposes at [facility]. - Risks, benefits, and alternatives were discussed in detail and the patient agrees to proceed. - Risks discussed include but are not limited to: radiation exposure, anxiety during testing and while awaiting results, false negatives, false positives and possibility of additional intervention such as further imaging or surgical procedures for benign disease. - Benefits are obviously detection of lung cancer at an early stage which can lead to improved outcomes. - Discussed the importance of screening program compliance with adherence to yearly LDCT scan as scheduled - or sooner interval scans for personalized screening regimen. - Discussed follow up plan. Our office will send a letter discussing results and if needed set up phone call and office visit based on CT findings. - Patient educated on results categorization and the management decisions for suspicious findings potentially found on the screening LDCT scan. Any patient with a Lung RADS score of 3 or 4 will be reviewed by a multidisciplinary team at [facility] to form a plan of action in regards to scan findings. - If further work up is warranted for a suspicious lung finding this will be followed by the Lung Cancer Screening program in conjunction with the Thoracic Surgery Department at [facility]. - A copy of the office note and LDCT will be sent to the patient's PCP - as well as documentation on any associated further plans of care. - Incidental findings on LDCT are the PCP's responsibility. These findings are indicated with an S finding on the LDCT Assessment. A note discussing the findings will be sent to the PCP who is then responsible for further management. - All questions answered.? Coding Level of Care Code Lung Cancer Screening G0296 Diagnoses Personal history of nicotine dependence Z87.891
== END 2024-10-29 09:52 | disposition home or self-care (01) ==
PROVIDERS: PCP Family Medicine; Visit Provider Physician Assistant Medical
DX: Z87.891 Personal history of nicotine dependence (principal)
CPT/HCPCS: G0296

== ENCOUNTER 2024-10-29 09:42 | Outpatient (REF) | payer MEDICAID, SELFPAY ==
--- NOTE | ~2024-10-29 | CT_ITS ---
EXAMINATION: CT LUNG SCREENING HISTORY: Smoking history TECHNIQUE: Low dose axial images were obtained from the sternal notch to upper abdomen without IV contrast per standard departmental protocol. Sagittal and coronal reformatted images were also obtained and reviewed. One or more of the following techniques was used for dose reduction: Automated exposure control, adjustment of the mA and/or kV according to patient size, use of iterative reconstruction technique. DLP: 57 mGy-cm COMPARISON: Correlation is made with PA and lateral views of the chest dated 09/02/2024. FINDINGS: Lung nodules: No pulmonary nodules are identified. Emphysema: none Coronary Calcification: none Aortic Arch Calcification: none Potentially Significant Incidentals : none Additional Chest Findings: There is no pleural or pericardial effusion. No mediastinal or axillary lymphadenopathy is identified. Visualized upper abdomen: The visualized portions of the liver, spleen, and adrenals have an unremarkable unenhanced appearance. There is a probable 5.7 cm cyst at the upper pole of the right kidney which is incompletely imaged. CT/CT lung screening IMPRESSION: No suspicious pulmonary nodules are identified. LUNG-RADS ASSESSMENT: Lung-RADS 1: Negative MANAGEMENT: Continue annual screening with LDCT in 12 months Category S: N/A Electronically signed by: Emre Perez MD 11/01/2024 02:24 PM [facility]
== END 2024-10-29 09:43 | disposition home or self-care (01) ==
LOC: HO.CT 09:42
PROVIDERS: PCP Family Medicine; Visit Provider Physician Assistant Medical
DX: Z12.2 Encounter for screening for malignant neoplasm of respiratory organs (principal); Z87.891 Personal history of nicotine dependence
CPT/HCPCS: 71271; G0296

== ENCOUNTER → 2024-10-29 09:45 | Outpatient (BNV) | payer MEDICAID, SELFPAY | PROVIDERS: PCP Family Medicine; Visit Provider Radiology Diagnostic Radiology | DX: Z87.891 Personal history of nicotine dependence (principal) | CPT/HCPCS: 71271 ==

== ENCOUNTER → 2024-11-23 09:08 | Outpatient (BNV) | payer MEDICAID, SELFPAY | PROVIDERS: Visit Provider Radiology Diagnostic Radiology | DX: M25.521 Pain in right elbow (principal) | CPT/HCPCS: 73080 ==

== ENCOUNTER 2024-11-23 09:19 | Outpatient (REF) | payer MEDICAID, SELFPAY ==
[2024-11-23 11:28] LABS: MANUAL DIFF FLAG NO
[2024-11-23 11:44] LABS: Basophils Percent Auto 0.6 % (0-2); Eosinophils Absolute Auto 0.3 X10*3/uL (0.0-0.4); Eosinophils Percent Auto 4.1 % (0-4); Hematocrit 37.9 % (37.0-47.0); Hemoglobin 12.3 g/dl (12.0-16.0); Imm Gran Abs Auto 0.03 X10*3/uL (0.00-0.03); Imm Gran Pct Auto 0.5 % (0.0-0.4); Lymphocytes Absolute Auto 1.7 X10*3/uL (1.2-4.9); Lymphocytes Percent Auto 26.2 % (20-40); Mean Corpuscular HGB Conc 32.5 g/dl (31.0-35.0); Mean Corpuscular Hemoglobin 27.6 pg (27.0-33.0); Mean Platelet Volume 10.2 fL (9.4-12.3); Monocytes Absolute Auto 0.6 X10*3/uL (0.1-1.2); Monocytes Percent Auto 8.5 % (2-11); Neutrophils Absolute Auto 3.9 x10*3/uL (2.0-8.3); Neutrophils Percent Auto 60.1 % (45-73); Platelet Count 241 X10*3/uL (160-400); Red Blood Count 4.46 X10*6/uL (4.20-5.50); Red Cell Distribution Width 13.2 % (11.0-16.0); Retic HGB Equivalent 32.2 pg (30.0-35.0); Reticulocyte Percent 1.3 % (0.5-1.8); Reticulocytes Absolute 0.059 X10*6/uL (0.026-0.095); White Blood Count 6.6 X10*3/uL (4.8-10.8)
[2024-11-23 12:01] LABS: Iron 50 mcg/dL (30-160); Percent Iron Saturation 23 % (15-50); Total Iron Binding Capacity 213 mcg/dL (228-428); Unsaturated Iron Binding 163 ug/dL
[2024-11-23 12:16] LABS: Ferritin 157 ng/mL (10-250)
[2024-11-23 12:27] LABS: Folate 13.1 ng/mL (> or = 4.0); Vitamin B12 354 pg/mL (200-900)
== END 2024-11-23 09:20 | disposition home or self-care (01) ==
LOC: HO.HHCL 09:19
PROVIDERS: Visit Provider Internal Medicine
DX: D64.9 Anemia, unspecified (principal)
CPT/HCPCS: 36415; 82607; 82728; 82746; 83540; 85025; 85045

== ENCOUNTER 2024-12-30 10:49 | Outpatient (REF) | payer MEDICAID, SELFPAY ==
--- NOTE | ~2024-12-30 | XR_ITS ---
EXAMINATION: XR CHEST 2 VIEWS HISTORY: Chest wall pain in the left margin of the sternal body. COMPARISON: Comparison is made with the prior examination dated 09/02/2024. FINDINGS: PA and lateral views of the chest are submitted. The lungs are expanded and clear. There is no pleural effusion, pneumothorax, or pulmonary vascular congestion. The heart is normal in size. The bones are intact. XR/XR chest 2V IMPRESSION: No acute cardiopulmonary abnormality. Electronically signed by: Emre Perez MD 12/30/2024 11:31 AM EDT
== END 2024-12-30 10:50 | disposition home or self-care (01) ==
LOC: HO.HHCX 10:49
PROVIDERS: Visit Provider Family Medicine
DX: R07.89 Other chest pain (principal)
CPT/HCPCS: 71046

== ENCOUNTER → 2024-12-30 10:51 | Outpatient (BNV) | payer MEDICAID, SELFPAY | PROVIDERS: Visit Provider Radiology Diagnostic Radiology | DX: R07.9 Chest pain, unspecified (principal) | CPT/HCPCS: 71046 ==

== ENCOUNTER 2025-01-04 09:18 | Outpatient (AMB) | payer MEDICAID, SELFPAY ==
[2025-01-04 09:20] VITALS: BP 130/70; PULSE 64; BMI 36.4
--- NOTE | 2025-01-04 09:20 | MHC.OFFVIS ---
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: No Allergies ENVIRONMENTAL Allergy (Intermediate, Uncoded 01/04/25 09:27) UPPER RESPIRATORY IRRITATION Medication List - Last Reconciled 01/04/25 by Luann Cosby NP-C aspirin (Adult Aspirin Regimen) 81 mg PO DAILY atorvastatin 10 mg PO BEDTIME hhsuhkqplw-jxnxarezhtwes-rigo 50-300-40 mg (Fioricet) 1 cap PO Q8H PRN fluticasone furoate-vilanterol 200-25 mcg/dose (Breo Ellipta) 1 inh inhalation DAILY 30 days multivitamin 1 tab PO DAILY HPI HPI 1 yr f/up: Details: Shona is a 64-year-old female with past medical history of obesity, hypertension, hyperlipidemia, smoking, prior reports of atypical chest discomfort who presents for follow-up. Her last prior visit was 01/06/2024. Today she reports that she went to urgent care for a discomfort in her chest recently and was told it was muscular. She tells me she had tenderness to palpation of the area. She has not had any other types of chest discomfort recently. She denies shortness of breath, PND, orthopnea, edema. She has not been getting heart palpitations, lightheadedness, presyncope, syncope. She reports good activity tolerance and takes care of her young grandchildren. Compliant with medications. Asthma has been stable. Offers no concerns today. [facility] Medical History Hepatitis C History of hypertension Hyperlipidemia Anemia Reactive airway disease Personal history of nicotine dependence Pneumonia Cough Microscopic hematuria Vertigo Vitamin D deficiency Obesity History of COVID-19 Surgical History History of colonoscopy Family History Mother Anemia Social History Alcohol intake: current Alcohol intake frequency: a few times a month Patient Tobacco Use Status: Former Tobacco user Years Smoked: (onset 14yo, 1/2ppd x 48yrs, 20+PYH - quit 2021) Review of Systems Const All systems reviewed & are unremarkable except as noted in HPI and below ENT Denies dizziness Card Denies chest pain, Denies chest pain at rest, Denies chest pain with activity, Denies rapid heart rate, Denies pedal edema, Denies edema, Denies leg edema, Denies lightheadedness, Denies palpitations, Denies dyspnea, Denies dyspnea on exertion and Denies orthopnea Resp Denies cough, Denies dyspnea and Denies dyspnea on exertion GI Denies hematochezia and Denies change in stool character Musc Denies abnormal gait, Denies limited range of motion, Denies muscle cramps, Denies muscle weakness, Denies numbness, Denies radiating pain into limb, Denies stiffness and Denies tingling Neuro Denies abnormal gait, Denies dizziness, Denies numbness and Denies tingling Endo Denies palpitations Physical Exam Vital Signs: Last Vital Signs Pulse 64 01/04/25 09:20 BP 130/70 01/04/25 09:20 BMI result Body Mass Index 36.4 Const General: cooperative, healthy appearing, comfortable and no acute distress Orientation/consciousness: patient oriented x3 Neck Neck: Yes normal visual inspection and Yes no JVD Resp Effort & Inspection: normal respiratory effort Auscultation: clear to auscultation bilaterally, no crackles, no rales, no rhonchi and no wheezes Cardio Jugular venous distension: no JVD Rate: regular rate Rhythm: regular rhythm Heart sounds: S1 normal heart sound present, S2 normal heart sound present, no murmurs and no rubs Neuro General: patient oriented x3 Extrem General: Yes normal to inspection, No no pedal edema and No calf tenderness Psych Appearance: grossly normal Mental Status: mental status grossly normal Speech and movement: Normal speech and movement present Office Procedures EKG Details: Today, read by me, normal sinus rhythm, can not exclude prior anterior infarct, rate 64. QTC 414 millisecond - no significant change from prior 10000-[id number], Complete Assessment & Plan Assessment & Plan (1) Precordial chest pain: Code(s): R07.2 - Precordial pain Category: Medical Plan: Prior reports of Atypical Chest discomfort occurring when upset and randomly. Cardiac risk factors of obesity, hypertension, hyperlipidemia and prior smoking. Echocardiogram done 09/04/2022 showed EF 60-65%, mild diastolic dysfunction. Nuclear stress test done 09/04/2022 with good exercise tolerance, no EKG changes, normal myocardial perfusion imaging. EKG done today showing sinus rhythm, can not exclude prior anterior infarct, could be related to lead placement as well, rate 64. Recent urgent care eval for chest discomfort that she says was reproducible with palpation. No symptoms at this time. Signs and symptoms of angina reviewed with her. Continue with risk factor modification. Cardiology follow-up will be as needed. (2) History of hypertension: Code(s): Z86.79 - Personal history of other diseases of the circulatory system Category: Medical Plan: Normal range today. No med changes made Plan Time spent on chart review, documentation, interview and assessment Coding Level of Care Code Est Pt Level 3 (37379) Complex EM visit Add On G2211 Diagnoses Precordial chest pain R07.2 History of hypertension Z86.79 CPT Codes EKG - CPT: 20211-[id number], Complete ([id number]) Time Spent (min) 24
== END 2025-01-04 09:48 | disposition home or self-care (01) ==
LOC: HO.HCS 09:18
PROVIDERS: PCP Family Medicine; Visit Provider Nurse Practitioner Family
DX: R07.2 Precordial pain (principal); Z86.79 Personal history of other diseases of the circulatory system
CPT/HCPCS: 93010; 99213

== ENCOUNTER → 2025-01-04 09:18 | Outpatient (BNVA) | payer MEDICAID, SELFPAY | PROVIDERS: PCP Family Medicine; Visit Provider Nurse Practitioner Family | DX: R07.2 Precordial pain (principal); I10 Essential (primary) hypertension; E78.5 Hyperlipidemia, unspecified; E66.9 Obesity, unspecified; Z68.36 Body mass index [BMI] 36.0-36.9, adult | CPT/HCPCS: 93005; 99212 ==

== ENCOUNTER 2025-03-18 10:05 | Outpatient (AMB) | payer MEDICAID, SELFPAY ==
[2025-03-18 10:11] VITALS: BP 124/80; PULSE 69; O2SAT 99; BMI 35.4
--- NOTE | 2025-03-18 10:11 | MHC.OFFVIS ---
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 The patient is 6 with a history of asthma and cough. She seems to be doing better. She has been on the Breo. She does not use it all the time. She has a rescue inhaler. Her cough is significantly better. She denies any significant wheezing. We did review her chest x-ray from January that looked clear. In addition to that she had blood work demonstrating leukocytosis. She had an infection. The patient seems doing better at this time. Will go ahead and continue her on rescue inhaler. She understands the Breo should be taken daily in that will work as a rescue inhaler. 03/18/2025 the patient is here for pulmonary follow-up visit. Overall she is doing well from a respiratory status. She has been using the Breo inhaler. She has not had to use her rescue inhaler although she has when available. The patient did have a lung cancer screening CAT scan October 2024. I personally reviewed with her. She does have some mild emphysema. The patient is now a former smoker which is good. No significant nodules appreciated. Otherwise the CAT scan is reassuring. She did have a fall today she tripped and she hurt her knees. Right now she will go home and rest them and put some ice on them. She does not feel like she needs any imaging studies. Patient follow-up in a year's time. She will consider getting the pneumonia vaccine, Prevnar 21 and also needs to update her Tdap for her pertussis and tetanus. She will get that at the pharmacy. Follow-up in a year's time. If she has any issues prior to that she will call for an earlier assessment. [facility] Medical History Hepatitis C History of hypertension Hyperlipidemia Anemia Reactive airway disease Personal history of nicotine dependence Pneumonia Cough Microscopic hematuria Vertigo Vitamin D deficiency Obesity History of COVID-19 Surgical History History of colonoscopy Family History Mother Anemia Social History Alcohol intake: current Alcohol intake frequency: a few times a month Patient Tobacco Use Status: Former Tobacco user Years Smoked: (onset 14yo, 1/2ppd x 48yrs, 20+PYH - quit 2021) Review of Systems Const Denies fever(s) Eyes Reports no additional complaints ENT Reports nasal congestion and Reports nasal discharge Card Denies chest pain Resp Reports cough and Reports wheezing GI Reports no additional complaints Musc Reports no additional complaints Skin/Breast Denies rash Neuro Reports no additional complaints Psych Reports no additional complaints Freddy/Lymph Denies easy bruising Aller/Immun Reports wheezing Physical Exam Vital Signs: Last Vital Signs Pulse 69 03/18/25 10:11 BP 124/80 03/18/25 10:11 Pulse Ox 99 03/18/25 10:11 Oxygen Delivery Method Room Air 03/18/25 10:11 BMI result Body Mass Index 35.4 Const General: comfortable HEENT Head: Yes normocephalic Neck Neck: Yes supple Chest Chest palpation & inspection: normal inspection of the chest Resp Effort & Inspection: normal respiratory effort and prolonged expiratory phase Auscultation: no wheezes and diminished lung sounds Cardio Heart sounds: S1 normal heart sound present and S2 normal heart sound present Skin General skin exam: no rashes or lesions noted Extrem General: Yes no clubbing, cyanosis or edema Assessment & Plan Assessment & Plan (1) Cough: Code(s): R05.9 - Cough, unspecified Category: Medical Qualifiers: Cough type: subacute Qualified Code(s): R05.2 - Subacute cough (2) Reactive airway disease: Code(s): J45.909 - Unspecified asthma, uncomplicated Category: Medical Qualifiers: Asthma complication type: with acute exacerbation Asthma persistence: persistent Asthma severity: moderate Qualified Code(s): J45.41 - Moderate persistent asthma with (acute) exacerbation Plan continue Breo ROSA as needed LDCT F/U 10-12 months Coding Level of Care Code Est Pt Level 4 (53987) Diagnoses Subacute cough R05.2 Cough type: subacute Moderate persistent reactive airway disease with acute exacerbation J45.41 Asthma complication type: with acute exacerbation Asthma persistence: persistent Asthma severity: moderate Time Spent (min) 16
--- OUTSIDE RECORDS SUMMARY | 2025-03-18 10:39 | XMS_ITS | Encounter Summary ---
Author Organization [employer] Address [address] [facility] [address] [place] [address] Care Team Providers Care Hand Dry Cleaner Name Role Phone Colleen Colon DO Primary Care Provider [phone] Encounter Details Date Type Department Care Team ([facility] st Contact Info) Description 01/10/2023 Orders Only [facility] [address] [place] [address] Colleen Handley LPN Social History Tobacco Use Types Packs/Day Years Used Date Smoking Tobacco: Never Assessed Comments Unknown Sex and Gender Information Value Date Recorded Sex Assigned at Female 08/19/2022 10:15 AM EDT Legal Sex Female 10:15 AM EDT Gender Identity Female 08/19/2022 10:15 AM EDT Sexual Orientation Straight 08/19/2022 10 :15 AM EDT documented as of this encounter Plan of Treatment Not on file documented as of this encounter Visit Diagnoses Not on filedocumented in this encounter Care Teams Hand Dry Cleaner Relationship Specialty Start Date End Date Colleen Colon DO [address] [place] [id number] PCP - General Family Medicine 07/03/15 Kanika Robison Director Patient AccountingBlind Lacer 11/03/24 documented as of this encounter
== END 2025-03-18 10:34 | disposition home or self-care (01) ==
LOC: HO.HPS 10:06
PROVIDERS: PCP Family Medicine; Visit Provider Hospitalist
DX: R05.2 Subacute cough (principal); J45.41 Moderate persistent asthma with (acute) exacerbation
CPT/HCPCS: 99214

== ENCOUNTER → 2025-03-18 10:05 | Outpatient (BNVA) | payer MEDICAID, SELFPAY | PROVIDERS: PCP Family Medicine; Visit Provider Hospitalist | DX: J45.41 Moderate persistent asthma with (acute) exacerbation (principal); R05.2 Subacute cough; Z87.891 Personal history of nicotine dependence; Z79.899 Other long term (current) drug therapy | CPT/HCPCS: 99212 ==

== ENCOUNTER 2025-04-06 10:32 | Outpatient (REF) | payer MEDICAID, SELFPAY ==
--- NOTE | ~2025-04-06 | XR_ITS ---
EXAMINATION: XR KNEE, LEFT CLINICAL INFORMATION: Acute left knee pain after fall, question of effusion COMPARISON: None available. TECHNIQUE: Four views of the left knee. FINDINGS: No fracture, dislocation, or suspicious bone lesion. Normal bone mineralization. Normal alignment. Minimal medial compartment joint space narrowing present. Lateral compartment and patellofemoral compartment appear preserved. No significant joint effusion. Soft tissues appear normal. XR/XR knee LT 4V IMPRESSION: 1. No acute bony abnormalities. 2. No definite joint effusion. Electronically signed by: Zhen Lutz MD 04/06/2025 11:01 AM EDT
== END 2025-04-06 10:33 | disposition home or self-care (01) ==
LOC: HO.HHCX 10:32
PROVIDERS: Visit Provider Registered Nurse
DX: M25.562 Pain in left knee (principal)
CPT/HCPCS: 73564

== ENCOUNTER → 2025-04-06 10:33 | Outpatient (BNV) | payer MEDICAID, SELFPAY | PROVIDERS: Visit Provider Radiology Diagnostic Radiology | DX: M25.562 Pain in left knee (principal); W19.XXXA Unspecified fall, initial encounter | CPT/HCPCS: 73564 ==

== ENCOUNTER 2025-06-08 09:55 | Emergency (ER) | payer MEDICAID, SELFPAY ==
--- NOTE | ~2025-06-08 | XR_ITS ---
EXAMINATION: XR CHEST CLINICAL INFORMATION: chest pain COMPARISON: December 30, 2024 TECHNIQUE: Frontal view of the chest was obtained. FINDINGS: No consolidation, pleural effusion or pneumothorax. Cardiomediastinal silhouette size is normal. Multilevel thoracic spondylosis. Degenerative changes in the shoulders. XR/XR chest 1V IMPRESSION: No acute airspace disease. Stable chest. Electronically signed by: Cornelius Dill MD 06/08/2025 10:27 AM EDT
[2025-06-08 10:03] VITALS: BP 160/106; BP 170/90; PULSE 46; PULSE 70; RESP 18; TEMP 36.6; O2SAT 97; O2SAT 99; BMI 35.3
--- NOTE | 2025-06-08 10:07 | ED_ITS ---
HPI - Chest Pain General Chief Complaint: Chest Pain Stated Complaint: L CHEST PAIN SINCE LAST NIGHT FROM [facility] Time Seen by Provider: 06/08/25 10:07 Source: patient, RN notes reviewed and old records reviewed Mode of arrival: EMS Limitations: no limitations History of Present Illness ED Provider: Samuel Villarreal PA-C HPI narrative: 64-year-old female with medical history of HTN, HLD, asthma, precordial chest pain, presents to the ED by EMS due to 1 day of chest pain. Patient reports dull aching, non-radiating, left-sided, intermittent chest pain that began last night (06/07/25) while she was sweeping her house. She went to lie down and noticed lying on her left side exacerbated the pain, took Tylenol for pain relief without effect. Patient states chest pain is only present when lying on her left side. Patient woke up this morning still experiencing left-sided chest pain, went to the walk-in clinic who recommended she come to the ED for further evaluation. Patient does have history of precordial chest pain, states this episode is similar in intensity and quality. Additionally patient states she has been dealing with ?cold? symptoms over the last 3 days including nasal congestion. Denies shortness of breath, dizziness, lightheadedness, nausea, vomiting, abdominal pain, diarrhea, dark/tarry stools, urinary symptoms Related Data Home Medications ?Medication ?Instructions ?Recorded ?Confirmed aspirin 81 mg tablet,delayed 81 mg PO DAILY 07/24/22 0 01/04/25 release (Adult Aspirin Regimen) multivitamin 1 tab PO DAILY 12/15/2312/18 atorvastatin 10 mg tablet 10 mg PO BEDTIME 01/04/25 Previous Rx's ?Medication ?Instructions ?Recorded fluticasone furoate 200 1 inh inhalation DAILY 30 da ys #60 01/05/25 mcg-vilanterol 25 mcg/dose ea inhalation powder (Breo Ellipta) Allergies Allergy/AdvReac Type Severity Reaction Status Date / Time ENVIRONMENTAL Allergy Intermediate UPPER Uncoded 06/08/25 10:15 RESPIRATORY IRRITATION Review of Systems 2 Review of Systems: CONST: Negative for fever, body aches and chills. HENT: Negative for neck pain/stiffness, headache, congestion, sore throat, swelling. EYES: Negative for discharge/pain or vision changes. RESP: Negative for cough/hemoptysis and shortness of breath. CV: Negative chest pain, difficulty breathing, palpitations. POS L sided chest pain ABD: Negative pain, nausea, vomiting. : Negative increase frequency, dysuria, blood in urine or stool. MUSC: Negative for muscle aches, edema. SKIN: Negative rash, lesions/sores. NEURO: Negative headache, dizziness, weakness. [facility] Past Medical History Medical History Hepatitis C History of hypertension Hyperlipidemia Anemia Reactive airway disease Personal history of nicotine dependence Pneumonia Cough Microscopic hematuria Vertigo Vitamin D deficiency Obesity History of COVID-19 Surgical History History of colonoscopy Family History Family History Mother Anemia Social History Social History Alcohol intake: current Alcohol intake frequency: holidays/special occasions only Patient Tobacco Use Status: Former Tobacco user Years Smoked: (onset 14yo, 1/2ppd x 48yrs, 20+PYH - quit 2021) Smoked in Last 30 Days: No Use of substances other than those prescribed or required for medical reasons: No Advance Directives: No Advance Directives Information Provided: Yes Do you have a plan to hurt others: No Plan Patient : No Physical Exam 2 Vital Signs: Vital Signs: Last Vital Signs Temp 97.8 F 06/08/25 13:59 Pulse 50 06/08/25 13:59 Resp 18 06/08/25 13:59 BP 133/85 06/08/25 13:59 Pulse Ox 100 06/08/25 13:59 O2 Del Method Room Air 06/08/25 13:59 BMI result Body Mass Index 35.3 GENERAL APPEARANCE: ?AxOx4, generally well-appearing, no acute distress. HEENT: ?NC, AT. MMM. EOMI, clear conjunctiva, oropharynx clear. NECK: ?Supple without lymphadenopathy.? No stiffness or restricted ROM. HEART:? Normal rate and regular rhythm, normal S1/S2, no m/r/g, chest pain reproducible when palpating left-sided chest wall lateral to nipple line LUNGS: Diminished breath sounds throughout all lung vergara, no crackles, rales, rhonchi ABDOMEN: ?Soft, nontender, nondistended with good bowel sounds heard. BACK: No CVAT, no obvious deformity. EXTREMITIES: ?Without cyanosis, clubbing or edema. NEUROLOGICAL: ?Grossly nonfocal. Alert and oriented, moving all 4 extremities. Observed to ambulate with normal gait. Skin: ?Warm and dry without any rash. Medical Decision Making Medical Decision Making MDM Narrative: 64-year-old female with medical history of HTN, HLD, bradycardia, asthma, precordial chest pain, presents to the ED due to 1 day of chest pain. Patient reports dull aching, non-radiating, left-sided, intermittent chest pain that began last night (06/07/25) while she was sweeping her house. She went to lie down and noticed lying on her left side exacerbated the pain, took Tylenol for pain relief without effect. Patient states chest pain is only present when lying on her left side. Patient woke up this morning still experiencing left- sided chest pain, went to the walk-in clinic who recommended she come to the ED for further evaluation. Patient does have history of precordial chest pain, states this episode is similar in intensity and quality. Additionally patient states she has been dealing with ?cold? symptoms over the last 3 days including nasal congestion. Patient currently asymptomatic upon arrival. VS on initial observation-BP 160/106, pulse rate of 46 (history of bradycardia), respiratory rate of 18, afebrile with oral temperature of 97.8, O2 saturation 99 percent on room air. On physical exam patient is well-appearing, in no acute distress, nontoxic appearing, patient able to speak in full clear sentences, no increased work of breathing noted, no diaphoresis. Cardiac exam reveals slow heart rate with normal rhythm, no murmurs/rubs/gallops, lung exam reveals diminished breath sounds throughout all lung vergara, no wheezing, rhonchi, crackles. Abdomen is soft, nondistended, nontender. Extremities without edema. Vital signs reveal hypertension, patient she has high blood pressure ?that always comes back down?, sees PCP is not on hypertensive medication at this time. Patient with hyperlipidemia, and states that she takes her cholesterol pill ?once in a blue rodriguez?. Patient with history of seeing [facility]iology, most recently seen 01/04/2025 for precordial chest pain. Patient had echocardiogram and stress test 08/2022 which revealed LVEF of 60-65 percent, mild diastolic dysfunction, exercise stress test without clear-cut ischemic changes, perfusion component was unremarkable. Plan: EKG, CXR, labs Course 14:00- Labs without leukocytosis, H and H stable, no electrolyte abnormality, alkaline phosphatase elevated at 147, however on chart review patient with persistently elevated alk-phos. D-dimer negative at 174. - less likely electrolyte abnormality/Pulm embolism. EKG with sinus bradycardia, without ST elevation/depression, there is normal varient T wave inversion in V1 and AVR, unchanged who comparing to prior there is no significant change. initial troponin 6.0, 2nd troponin 6.0- negative delta- less likely ACS. Patient HEART score of 3 due to positional chest pain, and risk factors including HTN, HLD, obesity, this is low risk score of MACE. I counseled patient on hypertension, encouraged patient to follow up with her us marketing director/PCP for further evaluation. I counseled patient that she should be taking her atorvastatin daily as medication will preserve heart health. Patient without current chest pain, feels comfortable to go home for self-care. At this time I believe left-sided chest pain is due to history of precordial chest pain. This chest pain is without red flag symptoms including shortness of breath, dizziness, syncopal episodes, diaphoresis, nausea, vomiting, radiation. Chest pain is reproducible when palpating left chest wall a few centimeters lateral to the nipple line. On chart review, Cardiology recommended CTA of coronary arteries and patient declined this imaging study. I counseled patient that this steady can help evaluate vessels of the in the heart and give more insight to her chest pain. I counseled patient on strict return precautions. Differential Diagnosis Differential Diagnoses: The differential diagnosis associated with the presentation includes ACS PE Pneumonia Costochondritis Viral illness Admission/Observation Consideration of admission/observation: Escalation of care including admission/observation considered Lab Data MDM Lab Attestation statement: I reviewed the patient's lab results. 06/08/25 11:28 06/08/25 11:28 Labs: Lab Results 06/08/25 06/08/25 Range/Units 11:28 13:25 WBC 5.9 (4.8-10.8) X10*3/uL RBC 4.73 (4.20-5.50) X10*6/uL Hgb 13.1 (12.0-16.0) g/dl Hct 39.8 (37.0-47.0) % MCV 84.1 (80.0-98.0) fL MCH 27.7 (27.0-33.0) pg MCHC 32.9 (31.0-35.0) g/dl RDW 13.4 (11.0-16.0) % Plt Count 229 (160-400) X10*3/uL MPV 10.2 (9.4-12.3) fL Immature Gran % (Auto) 0.5 H (0.0-0.4) % Neut % (Auto) 60.0 (45-73) % Lymph % (Auto) 26.4 (20-40) % Mower % (Auto) 8.0 (2-11) % Eos % (Auto) 4.6 H (0-4) % Baso % (Auto) 0.5 (0-2) % Lymph # (Auto) 1.6 (1.2-4.9) X10*3/uL Mower # (Auto) 0.5 (0.1-1.2) X10*3/uL Eos # (Auto) 0.3 (0.0-0.4) X10*3/uL Baso # (Auto) 0.0 (0.0-0.2) X10*3/uL Abs Immat Gran (auto) 0.03 (0.00-0.03) X10*3/uL Absolute Neuts (auto) 3.6 (2.0-8.3) x10*3/uL Absolute Nucleated RBC 0.000 (0.0-0.012) X10*3/uL Nucleated RBC % (auto) 0.0 (0.0-0.2) /100WBC D-Dimer High Sensitivty 174 NG/ML Sodium 141 (135-145) mmol/L Potassium 3.7 (3.3-5.1) mmol/L Chloride 106 (96-108) mmol/L Carbon Dioxide 28 (22-29) mmol/L Anion Gap 11 L (12-20) BUN 13 (9-16) mg/dL Creatinine 0.81 (0.5-1.4) mg/dL Estim Creat Clear Calc 83.4 Estimated GFR > 60 Random Glucose 93 (60-115) mg/dL Calcium 9.2 (8.4-10.2) mg/dL Magnesium 2.0 (1.6-2.6) mg/dL Total Bilirubin 0.7 (0.0-1.0) mg/dL AST 20 (5-31) U/L ALT 12 (0-31) U/L Alkaline Phosphatase 147 H (39-117) U/L Troponin I High Sens 6.0 D 6.0 (<3.5-17.0) ng/L Total Protein 7.6 (6.5-8.0) g/dL Albumin 4.1 (3.5-5.0) g/dL Influenza Type A (PCR) NEGATIVE (Negative) Influenza Type B (PCR) NEGATIVE (Negative) RSV RNA Qual (PCR) NEGATIVE (Negative) SARS-CoV-2 RNA (RT-PCR) NEGATIVE (Negative) Independent Interpretation I performed an independent interpretation of an: EKG Interpretation: I personally interpreted the EKG which reveals sinus bradycardia without ST- elevation/depression, there is a nonspecific T-wave abnormality however when comparing with the prior of 08/2024 no significant changes observed Vent. Rate : 53 BPM Atrial Rate : 53 BPM P-R Int : 164 ms QRS Dur : 84 ms QT Int : 448 ms P-R-T Axes : 7 -19 -18 degrees QTcB Int : 420 ms Sinus bradycardia Minimal voltage criteria for LVH, may be normal variant ( R in aVL ) Nonspecific T wave abnormality Abnormal ECG When compared with ECG of 02-Sep-2024 09:55, No significant change was found I personally interpreted the CXR which does not reveal pulmonary effusion, pulmonary edema, cardiomegaly, consolidations, infiltrates, I agree with the radiologist's interpretation Radiology Impression Discussion of test interpretation with radiology: I have reviewed the radiologist's reading. Radiologist Impression: CXR FINDINGS: No consolidation, pleural effusion or pneumothorax. Cardiomediastinal silhouette size is normal. Multilevel thoracic spondylosis. Degenerative changes in the shoulders. XR/XR chest 1V IMPRESSION: No acute airspace disease. Stable chest. Electronically signed by: Cornelius Dill MD 06/08/2025 10:27 AM EDT Dictated By: Cornelius Chavez MD Signed By: <Electronically signed by Cornelius Oneil MD in OV> 06/08/25 1027 External Record Review External record reviewed: Inpatient record, Office record and Outpatient record Chronic Conditions Patient?s care impacted by: Hypertension and Other (HLD) Discharge Plan Discharge Clinical Impression: Chest pain Patient Disposition: Home, Self-Care Instructions: Chest Wall Pain (ED), Noncardiac Chest Pain (ED) Additional Instructions: You were evaluated in the ED today due to left-sided chest pain. Your EKG revealed sinus bradycardia (slow heartbeat), your lab work including troponins which is an enzyme that the heart gives off under stress or damage was within normal limits. Your D-dimer which is a lab value used to look at potential clots was within normal limits. Your physical exam was reassuring that this chest pain was nonemergent due to ability to reproduce the the pain when pressing on the chest wall. I recommend that you follow up with your us marketing director and primary care provider for concerns with hypertension. I believe you may need antihypertensive medications to control your blood pressure. On chart review your us marketing director has offered CT imaging of the vessels of your heart. I recommend that you follow up with this test as it can give you better insight to your chest pain. You stated that you infrequently take your atorvastatin which is the medication used to control cholesterol levels. I recommend that you take this medication daily as it is a preventative medication that prevents heart disease and stroke. Please return to the emergency department if you have worsening chest pain, chest pain that radiates down the arm, to the jaw, lightheadedness, dizziness, sweating with the chest pain, fevers over 100.4 degrees, shortness of breath, or any new/worsening/concerning symptoms. Prescriptions: No Action fluticasone furoate-vilanterol [Breo Ellipta] 200-25 mcg/dose blister with device 1 inh inhalation DAILY 30 Days Qty: 60 11RF aspirin [Adult Aspirin Regimen] 81 mg tablet,delayed release (DR/EC) 81 mg PO DAILY multivitamin Tablet 1 tab PO DAILY atorvastatin 10 mg tablet 10 mg PO BEDTIME Print Language: Estonian
--- NOTE | 2025-06-08 10:14 | ECG_ITS ---
Test Reason : CP Blood Pressure : */* mmHG Vent. Rate : 53 BPM Atrial Rate : 53 BPM P-R Int : 164 ms QRS Dur : 84 ms QT Int : 448 ms P-R-T Axes : 7 -19 -18 degrees QTcB Int : 420 ms Sinus bradycardia Minimal voltage criteria for LVH, may be normal variant ( R in aVL ) Nonspecific T wave abnormality Abnormal ECG When compared with ECG of 02-Sep-2024 09:55, No significant change was found Referred By: Phil Baker Electronically Signed By: AMBER BENSON MD
--- NOTE | 2025-06-08 10:58 | PC.NURSE ---
patient a&ox3, vss, pt states she has been having intermittent chest pain which has worried her. currently denies pain. pt sinus bri on hall monitor 40s-50s. ekg performed, labs previously drawn, call joy within reach, plan of care ongoing
[2025-06-08 11:35] LABS: MANUAL DIFF FLAG NO
--- NOTE | 2025-06-08 11:35 | PC.NURSE ---
pt refusing IV
[2025-06-08 11:38] LABS: Hematocrit 39.8 % (37.0-47.0); Hemoglobin 13.1 g/dl (12.0-16.0); Imm Gran Abs Auto 0.03 X10*3/uL (0.00-0.03); Imm Gran Pct Auto 0.5 % (0.0-0.4); Lymphocytes Absolute Auto 1.6 X10*3/uL (1.2-4.9); Mean Corpuscular HGB Conc 32.9 g/dl (31.0-35.0); Mean Corpuscular Hemoglobin 27.7 pg (27.0-33.0); Mean Corpuscular Volume 84.1 fL (80.0-98.0); NRBC Abs Auto 0.000 X10*3/uL (0.0-0.012); NRBC Pct Auto 0.0 /100WBC (0.0-0.2); Platelet Count 229 X10*3/uL (160-400); Red Blood Count 4.73 X10*6/uL (4.20-5.50); White Blood Count 5.9 X10*3/uL (4.8-10.8)
[2025-06-08 11:55] LABS: Alanine Aminotransferase 12 U/L (0-31); Albumin Level 4.1 g/dL (3.5-5.0); Alkaline Phosphatase 147 U/L (39-117); Anion Gap 11 (12-20); Aspartate Amino Transferase 20 U/L (5-31); Blood Urea Nitrogen 13 mg/dL (9-16); Calcium 9.2 mg/dL (8.4-10.2); Carbon Dioxide 28 mmol/L (22-29); Chloride 106 mmol/L (96-108); Creatinine Clr Calc Pharmacy 83.4; Estimated Glomerular Filt Rate > 60; Magnesium 2.0 mg/dL (1.6-2.6); Potassium 3.7 mmol/L (3.3-5.1); Sodium 141 mmol/L (135-145); Total Protein 7.6 g/dL (6.5-8.0)
[2025-06-08 12:02] LABS: Troponin-I High Sensitivity 6.0 ng/L (<3.5-17.0)
[2025-06-08 12:26] LABS: Resp Syncy Virus RNA Qual PCR NEGATIVE (Negative); SARS COV2 PCR INHOUSE NEGATIVE (Negative)
--- OUTSIDE RECORDS SUMMARY | 2025-06-08 12:44 | XMS_ITS | Encounter Summary ---
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 Name Role Phone Colleen Colon DO Primary Care Provider Encounter Details Date Type Department Care Team (Late st Contact Info) Description 01/10/2023 Orders Only [facility] [address] [place] [address] Colleen Handley LPN Social History Tobacco Use Types Packs/Day Years Used Date Smoking Tobacco: Never Assessed Comments Unknown Sex and Gender Information Value Date Recorded Sex Assigned at Female 08/19/2022 10:15 AM EDT Legal Sex Female 10:15 AM EDT Gender Identity Female 08/19/2022 10:15 AM EDT Sexual Orientation Straight 08/19/2022 10 :15 AM EDT documented as of this encounter Plan of Treatment Upcoming Encounters Date Type Department Care Team (Late st Contact Info) Description 06/13/2025 9:15 AM EDT Procedure Visit [facility] [address] [place] [address] Colleen Colon DO [address] [place] [address] documented as of this encounter Visit Diagnoses Not on filedocumented in this encounter Care Teams Beef Pluck Trimmer Relationship Specialty Start Date End Date Colleen Colon DO [address] [place] [address] PCP - General Family Medicine 07/03/15 Kanika Robison Document Management ConsultantBanquet Attendant 11/03/24 documented as of this encounter
[2025-06-08 13:49] LABS: D Dimer High Sensitivity 174 NG/ML
[2025-06-08 13:51] LABS: Troponin-I High Sensitivity 6.0 ng/L (<3.5-17.0)
[2025-06-08 13:59] VITALS: BP 133/85; PULSE 50; RESP 18; TEMP 36.6; O2SAT 100
--- NOTE | 2025-06-08 14:01 | PC.NURSE ---
patient a&ox3, vss, complex manager sinus bri, currently denying pain/discomfort, awaiting for lab results, call joy within reach, plan of care ongoing
[2025-06-08 15:21] VITALS: BP 133/85; PULSE 50; RESP 18; TEMP 36.6; O2SAT 100
--- NOTE | 2025-06-08 15:42 | PHA.MEDREC ---
Pharmacy Consult ? Medication Reconciliation Pharmacy has completed the medication reconciliation. Utilized list from [facility].
== END 2025-06-08 15:22 | disposition home or self-care (01) ==
PROVIDERS: Emergency Provider Emergency Medicine; PCP Family Medicine
DX: R07.89 Other chest pain (principal); Z79.899 Other long term (current) drug therapy; Z03.818 Encounter for observation for suspected exposure to other biological agents ruled out
CPT/HCPCS: 36415; 71045; 80053; 83735; 84484; 85025; 85379; 87637; 93005; 99283; 99285

== ENCOUNTER → 2025-06-08 10:14 | Outpatient (BNV) | payer MEDICAID, SELFPAY | PROVIDERS: Emergency Provider Emergency Medicine; Visit Provider Radiology Diagnostic Radiology | DX: R07.89 Other chest pain (principal) | CPT/HCPCS: 71045 ==

== ENCOUNTER → 2025-06-08 10:14 | Outpatient (BNV) | payer MEDICAID, SELFPAY | PROVIDERS: Emergency Provider Emergency Medicine; PCP Family Medicine; Visit Provider Internal Medicine Cardiovascular Disease | DX: R00.1 Bradycardia, unspecified (principal) | CPT/HCPCS: 93010 ==

== ENCOUNTER 2025-06-21 08:33 | Outpatient (AMB) | payer MEDICAID, SELFPAY ==
[2025-06-21 08:48] VITALS: BP 126/70; PULSE 86; BMI 35.3
--- NOTE | 2025-06-21 08:48 | A.OFFVIS_ITS ---
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: No Allergies ENVIRONMENTAL Allergy (Intermediate, Uncoded 06/08/25 10:15) UPPER RESPIRATORY IRRITATION Medication List - Last Reconciled 06/21/25 by JANETH Boucher acetaminophen ER 650 mg PO Q8H PRN albuterol sulfate 2.5 mg inhalation Q4H PRN albuterol sulfate 90 mcg/actuation (Ventolin HFA) 2 puffs inhalation Q4H PRN ascorbic acid (vitamin C) 250 mg PO DAILY aspirin (Adult Aspirin Regimen) 81 mg PO DAILY atorvastatin 10 mg PO BEDTIME betamethasone valerate 0.1% 1 appl topical BID calcium polycarbophil (FiberCon) 625 mg PO BID cetirizine 10 mg PO DAILY cholecalciferol (vitamin D3) (Vitamin D3) 50 mcg PO DAILY diclofenac sodium 1% 2 grams topical QID PRN docusate sodium 100 mg PO BID fluticasone furoate-vilanterol 200-25 mcg/dose (Breo Ellipta) 1 inh inhalation DAILY 30 days fluticasone propionate 50 mcg/actuation 1 - 2 sprays intranasal DAILY PRN lanolin tiajjzj-lj-w.pet-ceres (Eucerin topical cream) 1 appl topical DAILY PRN meclizine 25 mg PO TID PRN melatonin 5 - 10 mg PO BEDTIME PRN methocarbamol 750 mg PO TID PRN multivitamin 1 tab PO DAILY naproxen 500 mg PO BID triamcinolone acetonide 0.1% 1 appl topical BID PRN HPI HPI [facility]/ ED follow up: Details: Shona is a 64-year-old female with past medical history of obesity, hypertension, hyperlipidemia, smoking, prior reports of atypical chest discomfort who was recently seen in the emergency room for chest discomfort and now presents for follow-up. Today she reports that she had gone to the emergency room for pain in her left chest that was occurring at rest. She did not know of any aggravating or alleviating factors. She has not had the discomfort since that day, 06/08/2025. She denies shortness of breath, PND, orthopnea, edema. She has not been getting heart palpitations, lightheadedness, presyncope, syncope. She reports good activity tolerance and takes care of her young grandchildren. Compliant with medications. Asthma has been stable. [facility] Medical History Hepatitis C History of hypertension Hyperlipidemia Anemia Reactive airway disease Personal history of nicotine dependence Pneumonia Cough Microscopic hematuria Vertigo Vitamin D deficiency Obesity History of COVID-19 Surgical History History of colonoscopy Family History Mother Anemia Social History Alcohol intake: current Alcohol intake frequency: holidays/special occasions only Patient Tobacco Use Status: Former Tobacco user Years Smoked: (onset 14yo, 1/2ppd x 48yrs, 20+PYH - quit 2021) Review of Systems Const All systems reviewed & are unremarkable except as noted in HPI and below Denies daytime sleepiness, Denies difficulty sleeping, Denies snoring, Denies stops breathing during sleep and Denies weakness Card Reports chest pain, Reports chest pain at rest, Denies rapid heart rate, Denies irregular heart rhythm, Denies claudication, Denies leg edema, Denies lightheadedness, Denies palpitations, Denies dyspnea, Denies dyspnea on exertion, Denies orthopnea, Denies paroxysmal nocturnal dyspnea and Denies slow heart rate Resp Denies cough, Denies dyspnea, Denies dyspnea on exertion and Denies snoring GI Reports no additional complaints, Denies hematochezia, Denies change in stool character and Denies dyspepsia Musc Denies abnormal gait, Denies muscle weakness and Denies numbness Neuro Denies abnormal gait, Denies numbness and Denies weakness Endo Denies palpitations Physical Exam Vital Signs: Last Vital Signs Pulse 86 06/21/25 08:48 BP 126/70 06/21/25 08:48 BMI result Body Mass Index 35.3 Const General: cooperative, healthy appearing, comfortable and no acute distress Orientation/consciousness: patient oriented x3 Neck Neck: Yes normal visual inspection and Yes no JVD Resp Effort & Inspection: normal respiratory effort Auscultation: clear to auscultation bilaterally, no crackles, no rales, no rhonchi and no wheezes Cardio Jugular venous distension: no JVD Rate: regular rate Rhythm: regular rhythm Heart sounds: S1 normal heart sound present, S2 normal heart sound present, no murmurs and no rubs Neuro General: patient oriented x3 Extrem General: Yes normal to inspection, No no pedal edema and No calf tenderness Psych Appearance: grossly normal Mental Status: mental status grossly normal Speech and movement: Normal speech and movement present Assessment & Plan Assessment & Plan (1) Precordial chest pain: Code(s): R07.2 - Precordial pain Category: Medical Plan: Prior reports of Atypical Chest discomfort without cardiac findings. Cardiac risk factors of obesity, hypertension, hyperlipidemia and prior smoking. Echocardiogram done 09/04/2022 showed EF 60-65%, mild diastolic dysfunction. Nuclear stress test done 09/04/2022 with good exercise tolerance, no EKG changes, normal myocardial perfusion imaging. ER evaluation 06/08/2025 for left- sided chest discomfort and ruled out for ACS. With her risk factors and recurrent issues with chest discomfort will check a CTA of the coronary arteries to evaluate for obstructive coronary artery disease. She is agreeable to this plan. Signs and symptoms of angina reviewed with her. Continue with risk factor modification. Cardiology follow-up 3-4 months, sooner if needed. (2) History of hypertension: Code(s): Z86.79 - Personal history of other diseases of the circulatory system Category: Medical Plan: Blood pressure goal less than 130/80. Normal range today. No med changes made (3) Hospital discharge follow-up: Code(s): Z09 - Encounter for follow-up examination after completed treatment for conditions other than malignant neoplasm Category: Medical Plan: ED records reviewed (4) Sinus bradycardia: Code(s): R00.1 - Bradycardia, unspecified Category: Medical Plan: History of sinus bradycardia. EKG when seen on 06/08/2025 showed sinus bradycardia, rate 53. Apical pulse checked by me today was 42. Will check Holter monitor to assess for significant bradycardia or pauses. Plan Time spent on chart review, documentation, interview and assessment Orders: Orders CT Cardiac Coronary Angio Today E78.5 - Hyperlipidemia, unspecified, R07.2 - Precordial pain, Z86.79 - Personal history of other diseases of the circulatory system ECG 3 day holter monitor Today R00.1 - Bradycardia, unspecified Basic Metabolic Panel Today E78.5 - Hyperlipidemia, unspecified, R07.2 - Precordial pain, Z86.79 - Personal history of other diseases of the circulatory system Coding Level of Care Code Est Pt Level 4 (35511) Complex EM visit Add On G2211 Diagnoses Precordial chest pain R07.2 History of hypertension Z86.79 Hospital discharge follow-up Z09 Sinus bradycardia R00.1 Time Spent (min) 30
== END 2025-06-21 09:55 | disposition home or self-care (01) ==
LOC: HO.HCS 08:34
PROVIDERS: PCP Family Medicine; Visit Provider Nurse Practitioner Family
DX: R07.2 Precordial pain (principal); Z09 Encounter for follow-up examination after completed treatment for conditions other than malignant neoplasm; Z86.79 Personal history of other diseases of the circulatory system; R00.1 Bradycardia, unspecified
CPT/HCPCS: 99214

== ENCOUNTER → 2025-06-21 08:33 | Outpatient (BNVA) | payer MEDICAID, SELFPAY | PROVIDERS: PCP Family Medicine; Visit Provider Nurse Practitioner Family | DX: R07.2 Precordial pain (principal); R00.1 Bradycardia, unspecified; E78.5 Hyperlipidemia, unspecified; Z86.79 Personal history of other diseases of the circulatory system | CPT/HCPCS: 99212 ==

== ENCOUNTER → 2025-06-23 09:26 | Outpatient (REF) | payer MEDICAID, SELFPAY ==
--- NOTE | 2025-06-23 09:29 | HM_ITS ---
Conclusion: 1. Patient was monitored for total period of 2 days 2. Baseline was normal sinus rhythm with average heart of 64 beats per minute 3. No significant pauses noted 4. Rare PACs noted with 5 short runs of SVE, longest lasting 10 beats consistent with PAT 5. Patient marked the counter 2 times correlating with sinus rhythm MTDD
--- OUTSIDE RECORDS SUMMARY | 2025-06-23 10:10 | XMS_ITS | Encounter Summary ---
Author Organization [employer] Address [address] [facility] 7 [place] [address] Care Team Providers Care Shank Tapper Name Role Phone Colleen Colon DO Primary Care Provider [phone]- [phone] Reason for Visit * Reason Onset Date Comments pt1 03/16/2025 Encounter Details Date Type Department Care Team ([facility] Contact Info) Description 03/16/2025 Telephone [facility] [address] [place] [address] Colleen Colon DO [address], [place] [phone] pt1 Social History Tobacco Use Types Packs/Day Years Used Date Smoking Tobacco: Former Cigarettes Passive Smoke Exposure: Past Smokeless Tobacco: Never Alcohol Use Standard Drinks/Week Comments Never 0 (1 standard drink = 0.6 oz pur e alcohol) Depression Answer Date Recorded Patient Health Questionnaire-9 Score 0 12/21/2024 Patient Health Questionnaire-9 Score 0 12/21/2024 Last PHQ-9: Questionnaire Data Not on file 0 12/21/2024 Housing Stability Answer Date Recorded What is your housing situation today? I have hemal linares 08/18/[address] you li ve. Do you have problems with any of the following? None of the above 08/18/2023 Food Insecurity Answer Date Recorded Within the past 12 months, y ou worried that your food would run out before you got money to buy more: Never True 08/18/2023 Within the past 12 months,th e food you bought just didn't last and you didn't have enough money to get more: Never True Transportation Answer Date Recorded In the past 12 months, has l ack of transportation kept you from medical appts, meetings, work or from getting things needed for daily living? No 08/18/2023 Utilities Answer Date Recorded In the past 12 months, has t he electric, gas, oil or water company threatened to shut off services in your home? No 08/18/2023 Depression Answer Date Recorded Patient Health Questionnaire-2 Score 0 12/21/2024 Internet Access Answer Date Recorded Internet Access Q1 Yes 12/21/2024 Internet Access Q2 Not on file 12/21/2024 Comments No Sex and Gender Information Value Date Recorded Sex Assigned at Female 08/19/2022 10:15 AM EDT Legal Sex Female 10:15 AM EDT Gender Identity Female 08/19/2022 10:15 AM EDT Sexual Orientation Straight 08/19/2022 10 :15 AM EDT documented as of this encounter Miscellaneous Notes * Telephone Encounter - Genny Otoole - 03/16/2025 8:03 AM EDT Patient calling requesting PT1 Home Address verified: Y/N: Yes Provider name or facility name: [address] [address] Escort needed: Y/N: No Do you have a wheelchair: Y/N: No If yes- Manual or electric: Visits: 4x documented in this encounter Plan of Treatment Not on file documented as of this encounter Visit Diagnoses Not on filedocumented in this encounter Additional Health Concerns Assessment Noted Time PHQ-9 Depression Total Score: 0 12/22/19 12:04 PM EST documented as of this encounter Care Teams Shank Tapper Relationship Specialty Start Date End Date Colleen Colon DO [address] [place] [address] PCP - General Family Medicine 07/03/15 Kanika Robison Tester Armature Or FieldsData Specialist 11/03/24 documented as of this encounter
--- OUTSIDE RECORDS SUMMARY | 2025-06-23 10:10 | XMS_ITS | Encounter Summary ---
Author Organization [employer] Address [address] [facility] [address] [place] [address] Care Team Providers Care Linseed Oil Order Filler Name Role Phone Colleen Colon DO Primary Care Provider [phone]- [phone] Encounter Details Date Type Department Care Team ([facility] st Contact Info) Description 01/10/2023 Orders Only [facility] [address] [place] [address] Colleen Handley LPN Social History Tobacco Use [...] on filedocumented in this encounter Care Teams Linseed Oil Order Filler Relationship Specialty Start Date End Date Colleen Colon DO [address] [place] [address] PCP - General Family Medicine 07/03/15 Kanika Robison Terrazzo PolisherPrecast Concrete Products Installer 11/03/24 documented as of this encounter
--- OUTSIDE RECORDS SUMMARY | 2025-06-23 10:11 | XMS_ITS | Encounter Summary ---
Author Organization [employer] Address [address] [facility] [address] [place] [address] Care Team Providers Care Trash Collector Truck Driver Name Role Phone Colleen Colon DO Primary Care Provider [phone]- [phone] Reason for Visit * Reason Onset Date Comments ER Follow-up 06/08/2025 Encounter Details Date Type Department Care Team ([facility] st Contact Info) Description 06/08/2025 Telephone [facility] [address] [place] [address] Colleen Colon DO [address] [place] [address] ER Follow-up Social History Tobacco Use Types Packs/Day Years [...] encounter Miscellaneous Notes * Telephone Encounter - Wing Josh RN - 06/09/2025 3:08 PM EDT Tc to pt regarding ED f/u. Pt reported she is fine, denies chest pain, though reports some dizziness and left eye discomfort. No blurred vision reported. Also denies nausea, vomiting, and diarrhea. Gave appt for 06/13 at noon. Pt verbalized understanding and agreement with plan. * Telephone Encounter - Caroline Whitney - 06/08/2025 4:23 PM EDT Patient calling to report ED visit on : Date: 06/08/25 Hospital: [facility] Seen for: Chest pain Symptomatic No Patient advised will forward to team nurse for follow up Contact pt at [phone] documented in this encounter Plan of Treatment Not on file documented as of this encounter Visit Diagnoses Not on filedocumented in this encounter Additional Health Concerns Assessment Noted Time PHQ-9 Depression Total Score: 0 12/22/19 12:04 PM EST documented as of this encounter Care Teams Trash Collector Truck Driver Relationship Specialty Start Date End Date Jurak, Colleen, DO [address] [place] [address] PCP - General Family Medicine 07/03/15 Kanika Robison Pt EscortHooking Machine Operator 11/03/24 documented as of this encounter
--- OUTSIDE RECORDS SUMMARY | 2025-06-23 10:11 | XMS_ITS | Encounter Summary ---
Author Organization [employer] Address [address] [facility] [address] [place] [address] Care Team Providers Care Regional Program Manager Name Role Phone Colleen Colon DO Primary Care Provider [phone]- [phone] Reason for Visit * Reason Comments Med Refill Encounter Details Date Type Department Care Team ([facility] st Contact Info) Description 09/03/2023 Refill [facility] [address] [place] [address] Hali Kinney MD [address] [place] [address] Social History Tobacco Use Types Packs/Day Years Used Date Smoking Tobacco: Former Cigarettes Passive Smoke Exposure: Past Smokeless Tobacco: Never Depression Answer Date Recorded Patient Health Questionnaire-9 Score 0 04/09/2023 Housing Stability Answer Date Recorded What is [...] Date Recorded Patient Health Questionnaire-2 Score 0 04/09/2023 Comments Unknown Sex and Gender Information Value [...] Noted Time PHQ-9 Depression Total Score: 0 04/09/20 23 9:17 AM EDT documented as of this encounter Care Teams Regional Program Manager Relationship Specialty Start Date End Date Colleen Colon DO [address] [place] [address] PCP - General Family Medicine 07/03/15 Kanika Robison Mixer And ScalerOrnamental Painter 11/03/24 documented as of this encounter
--- OUTSIDE RECORDS SUMMARY | 2025-06-23 10:11 | XMS_ITS | Clinical Summary ---
Author Organization [employer] Address [address] [place] [address] Care Team Providers Care Director Airport Operations Name Role Phone Colleen Colon DO Primary Care Provider Allergies No known active allergies Medications Lidoderm 5 % patch APPLY 1 PATCH TOPICALLY TO SKIN, LEAVE ON FOR 12 HOURS AND OFF FOR 12 HOURS DIRECTED 09/02/20 22 Active melatonin 5 MG tablet TAKE 1 TO 2 TABLETS BY MOUTH AT BEDTIME NEEDED FOR SLEEP 09/02/20 22 Active fluticasone (Flonase) 50 MCG/ACT nasal spray INSTILL 1-2 SPRAYS IN EACH NOSTRIL ONCE DAILY NEEDED 48 g 09/03/20 23 Active Multiple Vitamins-Gall[place] als (Centrum Silver 50+Women) tablet TAKE 1 TABLET BY MOUTH EVERY DAY 90 tablet 3 09/03/20 23 Active cetirizine (ZyrTEC) 10 MG tablet TAKE 1 TABLET BY MOUTH EVERY DAY 90 tablet 3 09/10/20 23 Active Breo Ellipta 200-25 MCG/ACT aerosol powder INHALE 1 PUFF BY MOUTH EVERY DAY AT THE SAME TIME. RINSE MOUTH AFTER USING. 03/02/20 24 Active Ascorbic Acid (vitamin C) 250 MG tablet Take 1 tablet (250 mg) by mouth Once per day. 90 tablet 3 07/23/20 24 025 Active polycarbophil (FiberCon) 625 MG tablet Take 1 tablet (625 mg) by mouth 2 times daily. 180 tablet 3 09/24/20 24 025 Active docusate sodium (Colace) 100 MG capsule Take 1 capsule (100 mg) by mouth 2 times daily. 180 capsule 3 09/24/20 24 025 Active betamethasone valerate (Valisone) 0.1 % cream Apply topically if needed in the morning and at bedtime (dryness). 45 g 2 11/04/19 25 Active albuterol (2.5 MG/3ML) 0.083% nebulizer solution INHALE 1 AMPULE USING A NEBULIZER EVERY 4 HOURS NEEDED FOR COUGH, WHEEZING, OR SHORTNESS OF BREATH 90 mL 1 11/19/19 25 Active meclizine (Antivert) 25 MG tablet Take 1 tablet (25 mg) by mouth if needed in the morning, at noon, and at bedtime for dizziness or nausea. 20 tablet 11/23/19 25 Active Ventolin HFA 108 (90 Base) MCG/ACT inhaler INHALE 2 PUFFS BY MOUTH EVERY 4 HOURS NEEDED FOR WHEEZING OR SHORTNESS OF BREATH 18 g 2 12/01/19 25 Active Skin Protectants, Misc. (eucerin) cream Apply topically if needed for dry skin. 396 g 3 12/22/19 25 026 Active naproxen (Naprosyn) 500 MG tablet TAKE 1 TABLET BY MOUTH TWICE DAILY IN THE MORNING AND AT BEDTIME FOR MILD PAIN 30 tablet 1 02/25/20 25 Active triamcinolone (Kenalog) 0.1 % cream APPLY TOPICALLY TWICE DAILY IN THE MORNING AND AT BEDTIME NEEDED FOR RASH 30 g 2 02/25/20 25 Active acetaminophen (Tylenol 8 Hour) 650 MG ER tablet TAKE 1 TABLET BY MOUTH EVERY 8 HOURS NEEDED FOR MILD PAIN. DO NOT BREAK, CRUSH, DISSOLVE OR CHEW. 60 tablet 1 03/01/20 25 Active atorvastatin (Lipitor) 10 MG tablet TAKE 1 TABLET BY MOUTH AT BEDTIME 90 tablet 1 05/10/20 25 Active D3 Super Strength 50 MCG (2000 UT) capsule TAKE 1 CAPSULE BY MOUTH EVERY DAY 90 capsule 1 05/10/20 25 Active baclofen (Lioresal) 10 MG tablet Take 1 tablet (10 mg) by mouth if needed in the morning, at noon, and at bedtime for muscle spasms. 60 tablet 1 06/14/20 25 025 Active triamcinolone (Kenalog) 0.1 % ointment Apply topically if needed in the morning and at bedtime (labial itching) for up to 14 days. 30 g 1 06/14/20 25 025 Active Diclofenac Sodium 1 % gel Apply 2 g topically if needed in the morning, at noon, in the evening, and at bedtime (pain). 150 g 3 06/14/20 25 Active aspirin (Aspirin Low Dose) 81 MG EC tablet Take 1 tablet (81 mg) by mouth Once per day. 90 tablet 1 06/14/20 25 Active diphenhydrAMIN E (BENADryl) 25 MG tablet Take 1 tablet (25 mg) by mouth every 6 (six) hours if needed for itching. 30 tablet 1 06/14/20 25 025 Active Diclofenac Sodium 1 % gel Apply 2 g topically if needed in the morning, at noon, in the evening, and at bedtime (pain). 150 g 3 12/22/19 25 025 Discontinued(Re order (will not trigger notification to Pharmacy)) methocarbamol (Robaxin) 750 MG tabletIndicati ons:Anterior chest wall pain Take 1 tablet (750 mg) by mouth if needed in the morning, at noon, and at bedtime for muscle spasms for up to 7 days. 20 tablet 12/31/19 25 025 Discontinued Aspirin Low Dose 81 MG EC tablet TAKE 1 TABLET BY MOUTH EVERY DAY 90 tablet 1 05/10/20 25 025 Discontinued(Re order (will not trigger notification to Pharmacy)) predniSONE (Deltasone) 20 MG tablet Take 1 tablet (20 mg) by mouth 2 times daily for 5 days. 10 tablet 06/14/20 25 025 Hospital, Clinic, or Other Facility Administered Medication Ordered Dose Route Frequency Start Date End Date Status aspirin chewable tablet 325 mgIndications:Precordial pain 325 mg PO Once 06/08/2025 06/08/2025 Ended Active Problems Problem Noted Date Diagnosed Date Acute pain of left knee 04/01/2025 Assessment & Plan (04/01/2025 9:11 AM EDT): Left lateral knee pain with 1+ effusion lateral knee s/p fall Denies joint instability, fever, or recent tick bites No buckling or clicking, plan for RICE If no improvement consider pt /ortho for possible drainage/further evaluation for lateral meniscal injury as unable to rule that out on exam today Anemia 11/04/2024 Assessment & Plan (11/04/2024 3:30 PM EST): Check labs and Iron studies. Refer to colonoscopy as she's due for it, unclear if there's GIB, order hemoccult and fu with PCP Eczema 11/04/2024 Assessment & Plan (11/04/2024 3:31 PM EST): On left leg Use betamethasone cream prn Depressive disorder 03/23/2024 Bradycardia 03/23/2024 Moderate persistent asthma 03/23/2024 History of hypertension 04/09/2023 Fatty liver 04/09/2023 Allergic rhinitis 04/09/2023 Chronic low back pain 04/09/2023 Tobacco dependence in remission 04/09/2023 History of hepatitis C 04/09/2023 Renal cyst, right 04/09/2023 Microscopic hematuria 04/09/2023 History of COVID-19 04/08/2023 Hyperlipidemia 04/08/2023 BMI 35.0-35.9,adult 04/08/2023 Vitamin D deficiency 01/13/2017 Resolved Problems Problem Noted Date Diagnosed Date Resolved Date Precordial pain 06/08/2025 06/14/2025 Assessment & Plan (06/08/2025 11:45 AM EDT): I gave patient in office aspirin 325 mg stat, [facility] and present the case and I sent patient for ambulance she needs to go to rule out ACS Leg swelling 04/01/2025 06/14/2025 Encounter for colorectal cancer screening 11/04/2024 06/14/2025 Assessment & Plan (11/04/2024 3:34 PM EST): Due for repeat this year, will refer, specially as she has new onset of anemia. Pharyngitis 11/04/2024 06/14/2025 Assessment & Plan (11/04/2024 3:32 PM EST): Can be residual from last weeks URI Rx PCN x 7-10d, take tylenol prn + gargles with warm water/salt/lemon/holly Use Flonase daily x 7d for PND. Elevated blood pressure reading 11/04/2024 06/14/2025 Assessment & Plan (11/04/2024 9:37 AM EST): It could be related to acute infection, she'll check BP at home and fu w PCP in 6-8w Dizziness 01/13/2017 06/14/2025 Assessment & Plan (11/04/2024 3:34 PM EST): Most likely viral vertigo, take dramamine prn, increased fluid intake Check BP at home and fu with PCP Unclear if hb drop is recent which can add to recent URI, she will fu with PCP Encounters Date Type Department Care Team Description 06/14/2025 12:00 PM EDT Office Visit [facility] [address] [place] [phone] Colleen Colon DO Chest pain, unspecified type (Primary Dx); Vulvar itching 06/14/2025 Travel 06/13/2025 Patient Outreach [facility] [address] [place] [phone] Colleen Colon DO Care Coordination ([facility] outreach for SDOH PT-1 and food needs-referral completed /) 06/13/[address] [address] Colleen Colon DO pt1 06/13/[address] [address] Colleen Colon DO No Show 06/10/[address] [address] Colleen Colon DO Chart Prep 06/09/2025 Travel 06/08/2025 9:20 AM EDT Office Visit [facility] [address] [place] [phone] Sandra Pineda MD Precordial pain (Primary Dx); Nasal congestion 06/08/2025 Telephone [facility] [address] [place], [place] [address] [address] Colleen Colon DO ER Follow-up 06/08/2025 Orders Only GENERIC EXTERNAL DATA DEPARTMENT Provider, Generic External Data 06/08/2025 Travel 05/18/2025 Telephone [facility] [place] [address] Colleen Colon DO Nurse Triage 05/12/[address] [address] Colleen Colon DO Recall Appointment 05/12/2025 Travel 05/09/[address] [address] Colleen Colon DO 04/20/2025 Patient Outreach [address] [address] Colleen Colon DO Care Coordination ([facility] outreach for SDOH PT-1 and food needs-referral completed /) 04/20/2025 Patient Outreach [address] [address] Colleen Colon DO Pre-visit Planning ((Unable to reach for PVP screening and or LVM) to be completed in office) 04/20/[address] [address] Colleen Colon DO pt1 04/18/2025 Travel 04/11/2025 Results Follow-Up [facility] [address] Zahra Cooper FNP XR Knee 4+ Views Left 04/06/2025 10:00 AM EDT Office Visit [facility] [place] [address] Zahra Cooper FNP Acute pain of left knee (Primary Dx) 04/06/[address] [address] Brigitte Oneil, RN Care Coordination 04/06/2025 Travel 04/04/[address] [address] Colleen Colon DO Referral 04/01/2025 8:40 AM EDT Office Visit [facility] [address] [place] [address] Namrata Glasgow, JA Acute pain of left knee (Primary Dx) 04/01/2025 Travel from Last 3 Months Immunizations Immunization Administration Dates Next Due Hep A, Adult 04/02/2011 Hep B, adult 11/30/2012,05/01/2011,04/02/2011 Influenza injectable quadriv alent IIV4 with preservative 07/02/2019 Influenza injectable quadriv alent preservative free 07/31/2021,08/10/2020,09/21/2018 Pneumococcal Conjugate PCV 20 09/08/2023 Pneumococcal Polysaccharide PPSV23 11/30/2012 Pneumococcal, Unspecified 11/30/2012 RSV Bivalent 11/18/2024 TD (adult), 2 Lf tetanus tox oid, preservative free, adsorbed 09/08/2023 Tdap 01/07/2013 Zoster, Recombinant 11/23/2024,08/07/2021 Social History Tobacco Use Types Packs/Day Years Used Date Smoking Tobacco: Former Cigarettes Passive Smoke Exposure: Past Smokeless Tobacco: Never Tobacco Cessation:Counseling Given: Not Answered Alcohol Use Standard Drinks/Week Comments Never 0 [...] Orientation Straight 08/19/2022 10 :15 AM EDT Last Filed Vital Signs Vital Sign Reading Time Taken Comments Blood Pressure 132/70 06/14/2025 11:56 AM EDT Pulse 62 06/14/2025 11:56 AM EDT Temperature 36.8 C (98.3 F) 06/14/2025 11:56 AM EDT Respiratory Rate 19 06/14/2025 11:56 AM EDT Oxygen Saturation 98% 06/14/2025 11:56 AM EDT Inhaled Oxygen Concentration - - Weight 98.9 kg (218 lb) 06/14/2025 11:56 AM EDT Height 167.6 cm (5' 6 ) 06/14/2025 11:56 AM EDT Body Mass Index 35.19 06/14/2025 11:56 AM EDT Plan of Treatment Health Maintenance Due Date Last Done Comments CT Colonography 1960 FIT DNA/Cologuard 1960 FIT 1960 FOBT 1960 Sigmoidoscopy 1960 Disability Screening 1960 Hepatitis A Vaccines (2 of 2 - Risk 2-dose series) 10/02/2011 04/02/2011 Colonoscopy 10/28/2024 10/28/2014 Colorectal Cancer Screening 10/28/2024 Pap Smear 01/09/2025 01/09/2022 COVID-19 Vaccine ( season) 2025 10/23/2021, 03/22/2021, 02/28/2021 Influenza Vaccine (#1) 2025 , 08/10/2020, 07/02/2019, Additional history exists Mammogram 09/13/2025 09/13/2024, 08/21, 01/23/2022, Additional history exists Diabetes: Hemoglobin A1C 11/04/2025 025, 09/02/2024, 09/08/2023, Additional history exists Alcohol/Substance Use Screening 12/21/2025 12/21/2024 Depression Screening 12/21/2025 12/21/2024, 12/22/19 SDOH Screening 12/21/2025 12/21/2024 Tobacco Screening 06/14/2026 06/14/2025 Cervical Cancer Screening 01/09/2027 HPV/Cotest 01/09/2027 01/09/2022, 01/15/2019 DTaP/Tdap/Td Vaccines (3 - Td or Tdap) 09/08/2033 09/08/2023, 01/07/2013 Hepatitis B Vaccines Completed 11/30/2012, 05/01/2011, 04/02/2011 Pneumococcal Vaccine: 50+ Years Completed 09/08/2023, 11/30/2012, 11/30/2012 HIV Screening Completed 09/02/2024, 09/19, 08/10/2020 RSV Patients and Patients Aged 60 years or older Completed 11/18/2024 Zoster Vaccines Completed 11/23/2024, 08/07/2021 HIB Vaccines Aged Out No longer eligi ble based on patient's age to complete this topic HPV Vaccines Aged Out No longer eligi ble based on patient's age to complete this topic IPV Vaccines Aged Out No longer eligi ble based on patient's age to complete this topic Meningococcal B Vaccine Aged Out No l onger eligible based on patient's age to complete this topic Meningococcal Vaccine Aged Out No mara amandeep eligible based on patient's age to complete this topic RSV under 20 months Aged Out No longe r eligible based on patient's age to complete this topic Rotavirus Vaccines Aged Out No longer eligible based on patient's age to complete this topic Procedures Procedure Name Priority Date/Time Associated Diagnosis Comments HIGH SENSITIVITY TROPONIN I Routine 06/08/2025 1:25 PM EDT D DIMER HIGH SENSITIVITY Routine 06/08/2025 1:25 PM EDT ECG 12-LEAD Routine 06/08/2025 11:44 AM EDT Precordial pain POCT INFLUENZA B (ID NOW RAPID MOLECULAR) Routine 06/08/2025 9:19 AM EDT Nasal congestion POCT INFLUENZA A (ID NOW RAPID MOLECULAR) Routine 06/08/2025 9:19 AM EDT Nasal congestion POCT RAPID COVID ANTIGEN Routine 06/08/2025 9:19 AM EDT Nasal congestion XR KNEE 4+ VIEWS LEFT Routine 04/06/2025 9:53 AM EDT POCT GLYCATED HEMOGLOBIN, TOTAL Routine 11/04/2024 9:26 AM EST Dizziness BI MAMMOGRAM SCREENING TOMOSYNTHESIS BILATERAL Routine 09/13/2024 8:55 AM EST HIV 1/2 ANTIGEN/ANTIBODY, FOURTH GENERATION W/RFL Routine 09/02/2024 8:13 AM EST Other hyperlipidemia Fatty liver Depressive disorder History of hypertension Microscopic hematuria Tobacco dependence in remission Moderate persistent reactive airway disease without complication Pain in both feet Hair loss Healthcare maintenance HPV MRNA E6/E7 REFLEX TO HPV 16, 18/45 Routine 01/09/2022 10:10 AM EDT THINPREP IMAGING SYSTEM PAP Routine 01/09/2022 10:10 AM EDT HM COLONOSCOPY Routine 10/28/2014 8:25 AM EST from Last 3 Months or Most Recently Relevant to Health Maintenance Results * D Dimer High Sensitivity (06/08/2025 1:25 PM EDT) D Dimer High Sensitivity 174 NG/ML [facility] Comment:D-DIMER HS REFERENCE RANGENote: Our assay reports D-Dimer Units (D- DU).The cut-off value for venous thromboembolic (VTE) disease is230 ng/mL. This value has a very high negative predictivevalue when the patient has a low to moderate clinicalprobability of VTE.The upper limit of normal is 243 ng/mL. 06/08/2025 1:25 PM EDT 06/08/2025 1:28 PM EDT us Generic External Data Provider LAB BLOOD ORDERAB LES Final Result Performing Organization Address [facility] Phone Number [facility] [address] [place] [phone] * High Sensitivity Troponin I (06/08/2025 1:25 PM EDT) [facility] TROPONIN I HIGH SENSITIVITY 6.0 <3.5 - 17.0 ng/L [facility] Comment:The [place] high sens itivity Troponin-I results should beused in conjunction with other diagnostic information suchas ECG, clinical observations and information, and patientsymptoms to aid in the diagnosis of PA. 06/08/2025 1:25 PM EDT 06/08/2025 1:28 PM EDT us Generic External Data Provider LAB BLOOD ORDERAB LES Final Result Performing Organization Address [facility] Number [facility] [address] [place] [phone] * ECG 12 lead (06/08/2025 11:44 AM EDT) Narrative Sandra Pineda MD - 06/08/2025 11:44 AM EDT Sinus rhythm heart rate 55 no changes from previous EKG Sandra Egan MD ECG ORDERABLES Final Result * Influenza B (ID NOW Rapid Molecular) (06/08/2025 9:19 AM EDT) [facility] Influenza B Negative Negative, Indeterminate [facility] Swab 06/08/2025 9:19 AM EDT us Sandra Egan MD POINT OF CARE TEST EN TER/EDIT ORDERABLES Final Result Performing Organization Address [facility]/ZIP Co de Phone Number [facility] [address] [place] [phone] * Influenza A (ID NOW Rapid Molecular) (06/08/2025 9:19 AM EDT) Influenza A Negative Negative, Indeterminate [facility] Swab 06/08/2025 9:19 AM EDT us Sandra Egan MD POINT OF CARE TEST EN TER/EDIT ORDERABLES Final Result Performing Organization Address [facility] Co de Phone Number [facility] [address] [place] [phone] * POCT Rapid COVID Ag (06/08/2025 9:19 AM EDT) Rapid COVID Ag Negative [facility] Swab 06/08/2025 9:19 AM EDT us Sandra Egan MD POINT OF CARE TEST EN TER/EDIT ORDERABLES Final Result Performing Organization Address [facility] Co de Phone Number [facility] [address] [place] [phone] * XR Knee 4+ Views Left (04/06/2025 9:53 AM EDT) Anatomical Region Laterality Modality Lower Extremities, Knee Left Radiogra phic Imaging 04/06/2025 9:53 AM EDT Narrative 04/06/2025 11:03 AM EDT [address] [address] XRay Report Signed Patient: Shona Denise MR#: [id number] : 1960 Acct:[id number] Age/Sex: 64 / F ADM Date: 04/06/25 Loc: [facility] Attending Dr: Zahra Cooper [employer] Ordering Physician: Zahra Cooper Date of Service: 04/06/25 Procedure(s): XR knee LT 4V Accession Number(s): [id number] cc: Zahra CooperP EXAMINATION: XR KNEE, LEFT CLINICAL INFORMATION: Acute left knee pain after fall, question of effusion COMPARISON: None available. TECHNIQUE: Four views of the left knee. FINDINGS: No fracture, dislocation, or suspicious bone lesion. Normal bone mineralization. Normal alignment. Minimal medial compartment joint space narrowing present. Lateral compartment and patellofemoral compartment appear preserved. No significant joint effusion. Soft tissues appear normal. XR/XR knee LT 4V IMPRESSION: 1. No acute bony abnormalities. 2. No definite joint effusion. Electronically signed by: Zhen Lutz MD 04/06/2025 11:01 AM EDT RP Dictated By: Zhen Lutz MD Signed By: <Electronically signed by Zhen Lutz MD in OV> 04/06/25 1101 DD/ 0953 TD/TT: 04/06/25 1046 Glass Decorator: Procedure Note Nannette Harp - 04/06/[address] [address] XRay Report Signed Patient: Shona DeniseMR#: [id number] : 1960Acct:[id number] Age/Sex: 64 / FADM Date: 04/06/25 Loc: [facility] Attending Dr: Zahra RAMIREZ Ordering Physician: Zahra Cooper Date of Service: 04/06/25 Procedure(s): XR knee LT 4V Accession Number(s): [id number] cc: Zahra Cooper EXAMINATION: XR KNEE, LEFT CLINICAL INFORMATION: Acute left knee pain after fall, question of effusion COMPARISON: None available. TECHNIQUE: Four views of the left knee. FINDINGS: No fracture, dislocation, or suspicious bone lesion. Normal bone mineralization. Normal alignment. Minimal medial compartment joint space narrowing present. Lateral compartment and patellofemoral compartment appear preserved. No significant joint effusion. Soft tissues appear normal. XR/XR knee LT 4V IMPRESSION: 1. No acute bony abnormalities. 2. No definite joint effusion. Electronically signed by: Zhen Lutz MD 04/06/2025 11:01 AM EDT Dictated By: Zhen Lutz MD Signed By: <Electronically signed by Zhen Lutz MD in OV> 04/06/25 1101 DD/ 0953 TD/TT: 04/06/25 1046 Glass Decorator: [facility] [employer] IMG XR PROCEDURES Edited Resu lt - Final * POCT HGB A1C (11/04/2024 9:26 AM EST) Hemoglobin A1C 5.7 4.0 - 6.0 % QC Media Lot # [id number] Lot# Expiration Date Blood 11/04/2024 9:26 AM EST Caryn Lopez MD POINT OF CARE TEST ENTER /EDIT ORDERABLES Final Result * BI Mammogram Screening Tomosynthesis Bilateral (09/13/2024 8:55 AM EST) Anatomical Region Laterality Modality Breast Bilateral Mammography 09/13/2024 8:55 AM EST Narrative 09/22/2024 12:30 PM EST [facility] [address] [place] [address] Mammography Report Signed Patient: Shona Denise MR#: [id number] : 1960 Acct:[id number] Age/Sex: 64 / F ADM Date: 09/13/24 Loc: HO.MAMMO Attending Dr: Colleen Colon DO Ordering Physician: Colleen Colon DO Results: 2B enign Findings Date of Service: 09/13/24 Follow Up: 1 Year From Orig inal Mammogram Procedure(s): MM tomosynthesis screening BI Accession Number(s): [id number] cc: Colleen Colon DO EXAMINATION: MM SCREENING DIGITAL BREAST TOMOSYNTHESIS, BILATERAL CLINICAL INFORMATION: Screening. Asymptomatic. COMPARISON: Mammography: Comparison is made with available priors TECHNIQUE: Digital breast mammography with tomosynthesis is performed in both the craniocaudal and mediolateral oblique views along with computer-aided detection (CAD). FINDINGS: The breasts are heterogeneously dense, which may obscure small masses (ACR BI-RADS breast composition Category c). Bilateral focal asymmetries are stable. There are no significant masses, abnormal calcifications, or other abnormalities. MM/MM tomosynthesis screening BI IMPRESSION: No mammographic evidence of malignancy. ASSESSMENT: BI-RADS BI-RADS 2 - Benign Findings RECOMMENDATION: Routine annual mammography screening. 1 year F/U This examination should not preclude the clinical evaluation of a suspicious palpable abnormality. This patient's information was entered into a reminder system with a target due date for their next mammogram. Electronically signed by: Lina Redmond DO 09/22/2024 12:27 PM [facility] Dictated By: Lina Redmond DO Signed By: <Electronically signed by Lina Redmond DO in OV> 09/22/24 1227 DD/ 0855 TD/TT: 09/13/24 0911 Glass Decorator: Procedure Note Nannette Harp - [facility] [address] [place], [place] [address] Mammography Report Signed Patient: Shona Denise#: [id number] : 1960Acct:[id number] Age/Sex: 64 / FADM Date: 09/13/24 Loc: HO.MAMMO Attending Dr: Colleen Colon DO Ordering Physician: Colleen Colonults: 2B enign Findings Date of Service: 09/13/24Follow Up: 1 Year From Orig inal Mammogram Procedure(s): MM tomosynthesis screening BI Accession Number(s): [id number] cc: Colleen Colon DO EXAMINATION: MM SCREENING DIGITAL BREAST TOMOSYNTHESIS, BILATERAL CLINICAL INFORMATION: Screening. Asymptomatic. COMPARISON: Mammography: Comparison is made with available priors TECHNIQUE: Digital breast mammography with tomosynthesis is performed in both the craniocaudal and mediolateral oblique views along with computer-aided detection (CAD). FINDINGS: The breasts are heterogeneously dense, which may obscure small masses (ACR BI-RADS breast composition Category c). Bilateral focal asymmetries are stable. There are no significant masses, abnormal calcifications, or other abnormalities. MM/MM tomosynthesis screening BI IMPRESSION: No mammographic evidence of malignancy. ASSESSMENT: BI-RADS BI-RADS 2 - Benign Findings RECOMMENDATION: Routine annual mammography screening. 1 year F/U This examination should not preclude the clinical evaluation of a suspicious palpable abnormality. This patient's information was entered into a reminder system with a target due date for their next mammogram. Electronically signed by: Lina Redmond DO 09/22/2024 12:27 PM EST RP Dictated By: Lina Redmond DO Signed By: <Electronically signed by Lina Redmond DO in OV> 09/22/24 1227 DD/ 0855 TD/TT: 09/13/24 0911 Glass Decorator: Colleen Colon DO [facility] BI PROCEDURES Edited Res ult - Final * HIV-1/2 Antigen and Antibodies, Fourth Generation, with Reflexes (09/02/2024 8:13 AM EST) HIV AB/AG Nonreactive Nonreactive [facility] Comment:HIV-1 p24 Ag and/or HIV-1/HIV-2 Ab not detected.A test result that is nonreactive does not exclude thepossibility of exposure to or infection with HIV-1 and/orHIV-2. Nonreactive results in this assay for individualswith prior exposure to HIV-1 and/or HIV-2 may be due toantigen and antibody levels that are below the limit ofdetection of this assay.The [employer] HIV Ag/Ab Combo assay result andsupplemental assay results should be interpreted inconjunction with the patient's clinical presentation,history and other laboratory results. If the results areinconsistent with clinical evidence, additional testing issuggested to confirm the result. Blood Venous blood specimen / Unknown 09/02/2024 8:13 AM EST 09/02/2024 10:53 AM EST Colleen Colon DO LAB BLOOD ORDERABLES Final R esult Performing Organization Address [facility]/ZIP Co de Phone Number [facility] [address] [place] [phone] * THINPREP TIS PAP (01/09/2022 10:10 AM EDT) Clinical Information: None given [facility] COMMENT SEE COMMENT [facility] Comment: EXPLANATORY NOTE: The Pap is a screening test for cervical cancer. It is not a diagnostic test and is subject to false negative and false positive results. It is most reliable when a satisfactory sample, regularly obtained, is submitted with relevant clinical findings and history, and when the Pap result is evaluated along with historic and current clinical information. COMMENT: SEE COMMENT [facility] Comment: This Pap test has been evaluated with computer assisted technology. Microscopic features suggestive of lubricant. Lubricant jellies may interfere with slide preparation; their use is not recommended. Polysomnographic Technician : SEE COMMENT [facility] Comment: BJ, CT(ASCP) CT screening location: [place] [address] Interpretation/R esult: Negative for intraepithelial lesion or malignancy. [facility] LMP: NONE GIVEN [facility] Prev. BX: NONE GIVEN [facility] Prev. PAP: NONE GIVEN [facility] Review Polysomnographic Technician : SEE COMMENT [facility] Comment: RK, CT(ASCP) CT screening location: [place] [address] SOURCE: None given [facility] Statement Of Adequacy: SEE COMMENT [facility] Comment: Satisfactory for evaluation. Endocervical/transformation zone component present. 01/09/2022 10:1 0 AM EDT Colleen Colon DO LAB PATHOLOGY ORDERABLES Fin al Result Performing Organization Address [facility]/ZIP Co de Phone Number [facility] [address] * HPV mRNA E6/E7 REFLEX TO HPV 16, 18/45 (01/09/2022 10:10 AM EDT) HPV nRNA E6/E7 Not Detected Not Detected [facility] Comment: Methodology: Dat Instructor-Mediated Amplification This assay detects E6/E7 viral messenger RNA (mRNA) from 14 high-risk HPV types (16,18,31,33,35,39,45,51,52,56,58,59,66,68). The analytical performance characteristics of this assay have been determined by [employer]. The modifications have not been cleared or approved by the FDA. This assay has been validated pursuant to the CLIA regulations and is used for clinical purposes. For additional information, please refer to http://education.[facility]/faq/XGQ971c0 (This link if provided for information/ educational purposes only.) 01/09/2022 10:1 0 AM EDT Colleen Colon DO LAB CYTOLOGY ORDERABLES Viviana l Result Performing Organization Address [facility] Co de Phone Number [facility] [address] * Hm Colonoscopy (10/28/2014 8:25 AM EST) Historical Provider HEALTH MAINTENANCE Final Result from Last 3 Months or Most Recently Relevant to Health Maintenance Insurance [employer] C3 HSN PARTIAL Care Teams Director Airport Operations Relationship Specialty Start Date End Date Colleen Colon DO [address] [place] [address] PCP - General Family Medicine 07/03/15 Kanika Robison Oncology ConsultantAir Pumper 11/03/24
--- OUTSIDE RECORDS SUMMARY | 2025-06-23 10:11 | XMS_ITS | Encounter Summary ---
Author Organization [employer] Address [address] [place] [address] Care Team Providers Care Industrial Engineering Director Name Role Phone Colleen Colon DO Primary Care Provider +1- [phone] Encounter Details Date Type Department Care Team ([facility] st Contact Info) Description 01/30/2024 Orders Only [facility] [address] [place], [place] [phone] Provider, MD Beverly Social History Tobacco Use Types Packs/Day Years Used Date Smoking Tobacco: Former Cigarettes Passive Smoke Exposure: Past Smokeless Tobacco: Never Depression Answer Date Recorded Patient Health Questionnaire-9 Score 1 09/08/2023 Patient Health Questionnaire-9 Score 1 09/08/2023 Last PHQ-9: Questionnaire Data Not on file 1 11/08/2022 Housing Stability Answer Date Recorded What is [...] Answer Date Recorded Patient Health Questionnaire-2 Score 1 09/08/2023 Comments Unknown Sex and Gender Information Value Date Recorded Sex Assigned at Female 08/19/2022 10:15 AM EDT Legal Sex Female 10:15 AM EDT Gender Identity Female 08/19/2022 10:15 AM EDT Sexual Orientation Straight 08/19/2022 10 :15 AM EDT documented as of this encounter Plan of Treatment Not on file documented as of this encounter Procedures Procedure Name Priority Date/Time Associated Diagnosis Comments HM COLONOSCOPY Routine 10/28/2014 8:25 AM EST documented in this encounter Results * Hm Colonoscopy (10/28/2014 8:25 AM EST) us Historical Provider HEALTH MAINTENANCE Final Result documented in this encounter Visit Diagnoses Not on filedocumented in this encounter Additional Health Concerns Assessment Noted Time PHQ-9 Depression Total Score: 1 09/08/20 23 9:00 AM EST documented as of this encounter Care Teams Industrial Engineering Director Relationship Specialty Start Date End Date Colleen Colon DO [address] [place] [address] PCP - General Family Medicine 07/03/15 Kanika Robison Wood CaulkerMarine Surveyor 11/03/24 documented as of this encounter
--- OUTSIDE RECORDS SUMMARY | 2025-06-23 10:11 | XMS_ITS | Encounter Summary ---
Author Organization [employer] Address [address] [facility] 7 [place] [address] Care Team Providers Care Campus Manager Name Role Phone Colleen Colon DO Primary Care Provider +1- [phone] Reason for Visit * Reason Onset Date Comments pt1 06/13/2025 Encounter Details Date Type Department Care Team ([facility] Contact Info) Description 06/13/2025 Telephone [facility] [address] [place] [address] Colleen Colon DO [address] [place], [place] [phone] pt1 Social History Tobacco Use Types Packs/Day [...] encounter Miscellaneous Notes * Telephone Encounter - Doron Burnett - 06/13/2025 9:37 AM EDT Patient calling requesting PT1 Home Address verified: Y/N: Yes Provider name or facility name: [facility] Escort needed: Y/N: No Do you have a wheelchair: Y/N: No Visits: (3x month) documented in this encounter Plan of Treatment Not on file documented as of this encounter Visit Diagnoses Not on filedocumented in this encounter Additional Health Concerns Assessment Noted Time PHQ-9 Depression Total Score: 0 12/22/19 12:04 PM EST documented as of this encounter Care Teams Campus Manager Relationship Specialty Start Date End Date Colleen Colon DO [address] [place] [phone] PCP - General Family Medicine 07/03/15 Kanika Robison Sql ConsultantCase Investigator 11/03/24 documented as of this encounter
--- OUTSIDE RECORDS SUMMARY | 2025-06-23 10:11 | XMS_ITS | Encounter Summary ---
Author Organization [employer] Address [address] [place] [address] Care Team Providers Care Converter Supervisor Name Role Phone Colleen Colon DO Primary Care Provider [phone] Reason for Visit * Reason Comments Med Refill Encounter Details Date Type Department Care Team ([facility] Contact Info) Description 09/03/2023 Refill [facility] [address] [place], [place] [phone] Name, MD Doron [address] [place] [address] Social History Tobacco Use Types Packs/Day Years [...] documented as of this encounter Care Teams Converter Supervisor Relationship Specialty Start Date End Date Colleen Colon DO [address] [place] [address] PCP - General Family Medicine 07/03/15 Kanika Robison Surtass AnalystDye Box Operator 11/03/24 documented as of this encounter
--- OUTSIDE RECORDS SUMMARY | 2025-06-23 10:11 | XMS_ITS | Encounter Summary ---
Author Organization [employer] Address [address] [facility] 7 [place] [address] Care Team Providers Care Production Material Handler Name Role Phone Colleen Colon DO Primary Care Provider +1- [phone] Reason for Visit * Reason Onset Date Comments pt1 04/20/2025 Encounter Details Date Type Department Care Team ([facility] Contact Info) Description 04/20/2025 Telephone [facility] [address] [place] [address] Colleen Colon DO [address] [place], [place] [phone] pt1 Social History Tobacco Use Types Packs/Day [...] * Telephone Encounter - Genny Otoole - 04/20/2025 8:53 AM EDT Patient calling requesting PT1 Home Address verified: Y/N: Yes Provider name or facility name:[facility] [address] [place] [phone] Escort needed: Y/N: No Do you have a wheelchair: Y/N: No If yes- Manual or electric: Visits: 2x a week documented in this encounter Plan of Treatment Not on file documented as of this encounter Visit Diagnoses Not on filedocumented in this encounter Additional Health Concerns Assessment Noted Time PHQ-9 Depression Total Score: 0 12/22/19 25 12:04 PM EST documented as of this encounter Care Teams Production Material Handler Relationship Specialty Start Date End Date Colleen Colon DO [address] [place] [address] PCP - General Family Medicine 07/03/15 Kanika Robison Surgical Elastic Knitter Hand FrameContractor General Building 11/03/24 documented as of this encounter"
== END ==
LOC: HO.CARD 09:26
PROVIDERS: PCP Family Medicine; Visit Provider Nurse Practitioner Family
DX: R00.1 Bradycardia, unspecified (principal)
CPT/HCPCS: 93242

== ENCOUNTER → 2025-06-23 09:29 | Outpatient (BNV) | payer MEDICAID, SELFPAY | PROVIDERS: PCP Family Medicine; Visit Provider Internal Medicine Cardiovascular Disease | DX: I49.1 Atrial premature depolarization (principal) | CPT/HCPCS: 93227 ==

== ENCOUNTER 2025-09-28 08:48 | Outpatient (REF) | payer MEDICARE, MEDICAID, SELFPAY ==
--- NOTE | ~2025-09-28 | MM_ITS ---
EXAMINATION: MM SCREENING DIGITAL BREAST TOMOSYNTHESIS, BILATERAL CLINICAL INFORMATION: Screening. Asymptomatic. COMPARISON: Comparison made to multiple prior, most recent September 13, 2024, and most remote August 13, 2017. TECHNIQUE: Digital breast tomosynthesis is performed in mediolateral oblique and craniocaudal views along with computer-aided detection (CAD). Synthesized 2D images are generated from the tomosynthesis. FINDINGS: BREAST COMPOSITION: There are scattered areas of fibroglandular density. BILATERAL BREASTS: No significant masses, suspicious calcifications or other abnormalities are seen in either breast. MM/MM tomosynthesis screening BI IMPRESSION: BILATERAL BREASTS: Negative, no mammographic evidence of malignancy. Normal interval follow-up is recommended in 12 months. ASSESSMENT: BI-RADS: Category 1: Negative RECOMMENDATION: Routine annual mammography screening. FOLLOW-UP: 1 year F/U This examination should not preclude the clinical evaluation of a suspicious palpable abnormality. This patient's information was entered into a reminder system with a target due date for their next mammogram. Electronically signed by: Jessica Sheikh MD 09/28/2025 07:[address] [facility]
== END 2025-09-28 08:49 | disposition home or self-care (01) ==
LOC: HO.MAMMO 08:48
PROVIDERS: PCP Family Medicine; Visit Provider Family Medicine
DX: Z12.31 Encounter for screening mammogram for malignant neoplasm of breast (principal)
CPT/HCPCS: 77063; 77067

== ENCOUNTER → 2025-09-28 08:50 | Outpatient (BNV) | payer MEDICARE, MEDICAID, SELFPAY | PROVIDERS: PCP Family Medicine; Visit Provider Radiology Body Imaging | DX: Z12.31 Encounter for screening mammogram for malignant neoplasm of breast (principal) | CPT/HCPCS: 77063; 77067 ==

== ENCOUNTER 2025-10-06 09:11 | Outpatient (AMB) | payer MEDICARE, MEDICAID, SELFPAY ==
--- NOTE | 2025-10-06 09:26 | A.OFFVIS_ITS ---
Vital Signs 10/06/25 09:28 Height 5 ft 6 in Weight 214 lb 11.684 oz BMI 34.7 BP 140/82 H Blood Pressure Location Rt brachial Position Sitting Pulse 52 Pulse Source Pulse Oximeter Intake Visit Reasons: 3 mth fu after cta/holter Auto Design Detailer Required: No Allergies ENVIRONMENTAL Allergy (Intermediate, Uncoded 10/06/25 09:30) UPPER RESPIRATORY IRRITATION Medication List - Last Reconciled 10/06/25 by JANETH Boucher acetaminophen ER 650 mg PO Q8H PRN albuterol sulfate 2.5 mg inhalation Q4H PRN albuterol sulfate 90 mcg/actuation (Ventolin HFA) 2 puffs inhalation Q4H PRN ascorbic acid (vitamin C) 250 mg PO DAILY aspirin (Adult Aspirin Regimen) 81 mg PO DAILY atorvastatin 10 mg PO BEDTIME betamethasone valerate 0.1% 1 appl topical BID calcium polycarbophil (FiberCon) 625 mg PO BID cetirizine 10 mg PO DAILY cholecalciferol (vitamin D3) (Vitamin D3) 50 mcg PO DAILY diclofenac sodium 1% 2 grams topical QID PRN docusate sodium 100 mg PO BID fluticasone furoate-vilanterol 200-25 mcg/dose (Breo Ellipta) 1 inh inhalation DAILY 30 days fluticasone propionate 50 mcg/actuation 1 - 2 sprays intranasal DAILY PRN lanolin nztzlnb-ls-n.pet-ceres (Eucerin topical cream) 1 appl topical DAILY PRN meclizine 25 mg PO TID PRN methocarbamol 750 mg PO TID PRN multivitamin 1 tab PO DAILY naproxen 500 mg PO BID triamcinolone acetonide 0.1% 1 appl topical BID PRN HPI HPI 3 mth fu after cta/holter: Details: Shona is a 65-year-old female with past medical history of obesity, hypertension, hyperlipidemia, smoking, atypical chest discomfort who presents for follow-up after recent CTA of the coronary arteries and Holter monitor. Today she reports that she she strongly believes that her prior chest discomfort was related to sweeping. She had a certain rug in her home that she was sweeping up to 3 times daily. She realized that that physical activity was causing discomfort in her anterior chest wall. No other types of physical activity caused that symptom. She denies shortness of breath, PND, orthopnea, edema. She has not been getting heart palpitations, lightheadedness, presyncope, syncope. She reports good activity tolerance and takes care of her young grandchildren. Compliant with medications. [facility] Medical History Hepatitis C History of hypertension Hyperlipidemia Anemia Reactive airway disease Personal history of nicotine dependence Pneumonia Cough Microscopic hematuria Vertigo Vitamin D deficiency Obesity History of COVID-19 Surgical History History of colonoscopy Family History Mother Anemia Social History Alcohol intake: current Alcohol intake frequency: holidays/special occasions only Patient Tobacco Use Status: Former Tobacco user Years Smoked: (onset 14yo, 1/2ppd x 48yrs, 20+PYH - quit 2021) Review of Systems Const All systems reviewed & are unremarkable except as noted in HPI and below ENT Denies dizziness Card Denies chest pain, Denies chest pain at rest, Denies chest pain with activity, Denies rapid heart rate, Denies pedal edema, Denies edema, Denies leg edema, Denies lightheadedness, Denies palpitations, Denies dyspnea, Denies dyspnea on exertion and Denies orthopnea Resp Denies cough, Denies dyspnea and Denies dyspnea on exertion GI Denies hematochezia and Denies change in stool character Musc Denies abnormal gait, Denies limited range of motion, Denies muscle cramps, Denies muscle weakness, Denies numbness, Denies radiating pain into limb, Denies stiffness and Denies tingling Neuro Denies abnormal gait, Denies dizziness, Denies numbness and Denies tingling Endo Denies palpitations Physical Exam Vital Signs: Last Vital Signs Pulse 52 10/06/25 09:28 BP 140/82 H 10/06/25 09:28 BMI result Body Mass Index 34.7 Const General: cooperative, healthy appearing, comfortable and no acute distress Orientation/consciousness: patient oriented x3 Neck Neck: Yes normal visual inspection and Yes no JVD Chest Other: tenderness left chest wall to palpation Resp Effort & Inspection: normal respiratory effort Auscultation: clear to auscultation bilaterally, no crackles, no rales, no rhonchi and no wheezes Cardio Jugular venous distension: no JVD Rate: regular rate Rhythm: regular rhythm Heart sounds: S1 normal heart sound present, S2 normal heart sound present, no murmurs and no rubs Neuro General: patient oriented x3 Extrem General: Yes normal to inspection, No no pedal edema and No calf tenderness Psych Appearance: grossly normal Mental Status: mental status grossly normal Speech and movement: Normal speech and movement present Assessment & Plan Assessment & Plan (1) Precordial chest pain: Code(s): R07.2 - Precordial pain Category: Medical Plan: Reports of Atypical Chest discomfort without cardiac findings. Cardiac risk factors of obesity, hypertension, hyperlipidemia and prior smoking. Echocardiogram done 09/04/2022 showed EF 60-65%, mild diastolic dysfunction. Nuclear stress test done 09/04/2022 with good exercise tolerance, no EKG changes, normal myocardial perfusion imaging. ER evaluation 06/08/2025 for left- sided chest discomfort and ruled out for ACS. CTA of the coronary arteries done on 08/31/2025 shows no coronary artery atherosclerosis. Reviewed with her. Her discomfort was likely musculoskeletal in nature. Continue with risk factor modification. Cardiology follow-up PRN. (2) History of hypertension: Code(s): Z86.79 - Personal history of other diseases of the circulatory system Category: Medical Plan: Blood pressure goal less than 130/80. Mild elevation today. Reviewed low-salt diet. No med changes made. Can be followed by her PCP. (3) Sinus bradycardia: Code(s): R00.1 - Bradycardia, unspecified Category: Medical Plan: History of sinus bradycardia. Pulse runs on the slow side at times. Holter monitor done on 06/23/2025 for 2 days shows sinus rhythm with average heart rate 64 beats per minute, rare PACs and brief SVE runs. Pulse 52 on exam today, asymptomatic. Plan I reviewed the results of the patient's recent cardiac workup with her. I explained that the CT scan of her heart arteries was normal with no blockages, which rules out a cardiac ischemic cause for her chest discomfort. We discussed her observation that the pain is linked to sweeping, and I reassured her that it is not heart-related. I also discussed the heart monitor results, noting her average heart rate of 64 is good and the rhythm is normal, though a few early beats were recorded. I advised her that these early beats, which she may feel as palpitations, are not typically harmful but that she should go to the emergency room for a fast heartbeat that does not stop. We briefly touched upon lifestyle factors for palpitations like lack of sleep and stress. Given the benign findings, I advised her that routine cardiology follow-up is not necessary, and she should return on an as-needed basis for worsening pal pitations, shortness of breath, or any other new concerns. Patient Instructions: - Your recent heart tests were normal. - The chest pain you feel is not coming from your heart and appears to be related to the motion of sweeping. - You may sometimes feel your heart have a few quick or early beats, which are called palpitations. - These are generally not harmful. - If you feel your heart beating fast and it does not go away, you should go to the nearest emergency room. - Triggers for palpitations can include stress and not getting enough sleep, so it is important to focus on rest. - You do not need to schedule a routine follow-up appointment. - Please call the office to make an appointment if you start having more palpitations, develop shortness of breath, or have any other new problems. Patient was informed and verbally consented to the use of an ambient scribe for clinic note documentation during this visit. Visit time spent on chart review, interview, assessment, orders, documentation. Coding Level of Care Code Est Pt Level 4 (47871) Add On Problem Visit Only Diagnoses Precordial chest pain R07.2 History of hypertension Z86.79 Sinus bradycardia R00.1 Time Spent (min) 28
[2025-10-06 09:28] VITALS: BP 140/82; PULSE 52; BMI 34.7
--- OUTSIDE RECORDS SUMMARY | 2025-10-06 10:21 | XMS_ITS | Encounter Summary ---
Author Organization [employer] Address [address] [facility] 7t [place] [address] Care Team Providers Care Classifier Operator Name Role Phone Colleen Colon DO Primary Care Provider +1- [phone] Encounter Details Date Type Department Care Team ([facility] st Contact Info) Description 01/10/2023 Orders Only [facility] [address] [place] [address] Colleen Handley LPN Social History Tobacco Use [...] on filedocumented in this encounter Care Teams Classifier Operator Relationship Specialty Start Date End Date Colleen Colon DO [address] [place] [id number] PCP - General Family Medicine 07/03/15 Kanika Robison Component Assembler SupervisorMetal Fabricator Welder 11/03/24 documented as of this encounter
--- OUTSIDE RECORDS SUMMARY | 2025-10-06 10:22 | XMS_ITS | Encounter Summary ---
Author Organization [employer] Address [address] [facility] [place] [address] Care Team Providers Care Grounds Maintenance Worker Name Role Phone Colleen Colon DO Primary Care Provider +1- [phone] Reason for Visit * Reason Comments Med Refill Encounter Details Date Type Department Care Team ([facility] Contact Info) Description 09/03/2023 Refill [facility] [address] [place], [place] [phone] Name, MD Doron [address] [place] [address] Social History Tobacco Use Types Packs/Day Years [...] documented as of this encounter Care Teams Grounds Maintenance Worker Relationship Specialty Start Date End Date Colleen Colon DO [address] [place] [address] PCP - General Family Medicine 07/03/15 Kanika Robison Animal CaregiverDivision Traffic Superintendent 11/03/24 documented as of this encounter
--- OUTSIDE RECORDS SUMMARY | 2025-10-06 10:22 | XMS_ITS | Encounter Summary ---
Author Organization [employer] Address [address] [facility] 7 [place] [address] Care Team Providers Care Phlebotomist Prn Name Role Phone Colleen Colon DO Primary Care Provider +1- [phone] Reason for Visit * Reason Onset Date Comments ER Follow-up 06/08/2025 Encounter Details Date Type Department Care Team ([facility] st Contact Info) Description 06/08/2025 Telephone [facility] [address] [place] [address] Colleen Colon DO [address] [place] [address] ER Follow-up Social History Tobacco Use Types [...] ED visit on : Date: 06/08/25 Hospital: [facility] Seen for: Chest pain Symptomatic No Patient advised will forward to team nurse for follow up Contact pt at [phone] documented in this encounter Plan of Treatment Not on file documented as of this encounter Visit Diagnoses Not on filedocumented in this encounter Additional Health Concerns Assessment Noted Time PHQ-9 Depression Total Score: 0 12/22/19 12:04 PM EST documented as of this encounter Care Teams Phlebotomist Prn Relationship Specialty Start Date End Date Jurak, Colleen, DO [address] [place] [address] PCP - General Family Medicine 07/03/15 Kanika Robison Diet TherapistWorship Leader 11/03/24 documented as of this encounter
--- OUTSIDE RECORDS SUMMARY | 2025-10-06 10:22 | XMS_ITS | Encounter Summary ---
Author Organization [employer] Address [address] [facility] 7 [place] [address] Care Team Providers Care Irrigationist Designer Name Role Phone Colleen Colon DO Primary Care Provider Reason for Visit * Reason Onset Date Comments PT1 07/04/2025 Encounter Details Date Type Department Care Team ([facility] Contact Info) Description 07/04/2025 Telephone [facility] [address] [place] [address] Colleen Colon DO [address] [place], [place] [phone] PT1 Social History Tobacco Use Types Packs/Day Years [...] * Telephone Encounter - Doron Burnett - 07/04/2025 10:18 AM EDT Patient calling requesting PT1 Home Address verified: Y/N: Yes Provider name or facility name: [address] Escort needed: Y/N: No Do you have a wheelchair: Y/N: No Visits: (2x month ) documented in this encounter Plan of Treatment Not on file documented as of this encounter Visit Diagnoses Not on filedocumented in this encounter Additional Health Concerns Assessment Noted Time PHQ-9 Depression Total Score: 0 12/22/19 12:04 PM EST documented as of this encounter Care Teams Irrigationist Designer Relationship Specialty Start Date End Date Colleen Colon DO [address] [place] [phone] PCP - General Family Medicine 07/03/15 Kanika Robison Gasoline Pump MechanicVmware Architect 11/03/24 documented as of this encounter
--- OUTSIDE RECORDS SUMMARY | 2025-10-06 10:22 | XMS_ITS | Encounter Summary ---
Author Organization [email or web address] Address [address] [facility] [address] [place] [address] Care Team Providers Care Wood Shingle Roofer Name Role Phone Colleen Colon DO Primary Care Provider [phone] Reason for Visit * Reason Comments Med Refill Encounter Details Date Type Department Care Team ([facility] st Contact Info) Description 09/03/2023 Refill [facility] [address] [place] [address] Hali Kinney MD [address] [place] [address] Social History Tobacco Use Types Packs/Day Years [...] documented as of this encounter Care Teams Wood Shingle Roofer Relationship Specialty Start Date End Date Colleen Colon DO [address] [place] [address] PCP - General Family Medicine 07/03/15 Kanika Robison Advertising Assistant ManagerLay Brother 11/03/24 documented as of this encounter
--- OUTSIDE RECORDS SUMMARY | 2025-10-06 10:22 | XMS_ITS | Encounter Summary ---
Author Organization [employer] Address [address] [facility] [address] [place] [address] Care Team Providers Care Brush Hand Name Role Phone Colleen Colon DO Primary Care Provider [phone] Encounter Details Date Type Department Care Team ([facility] st Contact Info) Description 01/30/2024 Orders Only [facility] MEDICINE [address] [place], [place] [phone] Provider, MD [place] Social History Tobacco Use [...] documented as of this encounter Care Teams Brush Hand Relationship Specialty Start Date End Date Colleen Colon DO [address] [place] [address] PCP - General Family Medicine 07/03/15 Kanika Robison Dough Cutting Machine OperatorLife Insurance Salesperson 11/03/24 documented as of this encounter
--- OUTSIDE RECORDS SUMMARY | 2025-10-06 10:22 | XMS_ITS | Encounter Summary ---
Author Organization [employer] Address [address] [facility] 7 [place] [address] Care Team Providers Care Residential Case Manager Name Role Phone Colleen Colon DO Primary Care Provider Reason for Visit * Reason Onset Date Comments pt1 06/13/2025 Encounter Details Date Type Department Care Team ([facility] Contact Info) Description 06/13/2025 Telephone [facility] MED[facility]INE [address] [place] [address] Colleen Colon DO [address] [place], [place] [phone] pt1 Social History Tobacco Use Types Packs/Day [...] Y/N: Yes Provider name or facility name: [facility] Escort needed: Y/N: No Do you have a wheelchair: Y/N: No Visits: (3x month) documented in this encounter Plan of Treatment Not on file documented as of this encounter Visit Diagnoses Not on filedocumented in this encounter Additional Health Concerns Assessment Noted Time PHQ-9 Depression Total Score: 0 12/22/19 12:04 PM EST documented as of this encounter Care Teams Residential Case Manager Relationship Specialty Start Date End Date Colleen Colon DO [address] [place] [id number] PCP - General Family Medicine 07/03/15 Kanika Robison Veterinarian PoultryTank Bottom Assembler 11/03/24 documented as of this encounter
--- OUTSIDE RECORDS SUMMARY | 2025-10-06 10:22 | XMS_ITS | Clinical Summary ---
Author Organization [employer] Address [address] [facility] [address] [place] [address] Care Team Providers Care Still Operator Batch Or Continuous Name Role Phone Colleen Colon DO Primary Care Provider [phone] Allergies No known active allergies Medications Lidoderm [...] NEEDED 48 g 09/03/20 23 Active Multiple Vitamins-[place] als (Centrum Silver 50+Women) tablet TAKE 1 TABLET BY MOUTH EVERY DAY 90 tablet 3 09/03/20 23 Active cetirizine (ZyrTEC) 10 MG tablet TAKE 1 TABLET BY MOUTH EVERY DAY 90 tablet 3 09/10/20 23 Active Breo Ellipta 200-25 MCG/ACT aerosol powder INHALE 1 PUFF BY MOUTH EVERY DAY AT THE SAME TIME. RINSE MOUTH AFTER USING. 03/02/20 24 Active betamethasone valerate (Valisone) 0.1 % cream Apply topically if needed in the morning and at bedtime (dryness). 45 g 2 09/02/2025 12:45 PM EST 11/04/19 25 Active albuterol (2.5 MG/3ML) 0.083% nebulizer solution INHALE 1 AMPULE USING A NEBULIZER EVERY 4 HOURS NEEDED FOR COUGH, WHEEZING, OR SHORTNESS OF BREATH 90 mL 1 09/02/2025 12:46 PM EST 11/19/19 25 Active meclizine (Antivert) 25 MG tablet Take 1 tablet (25 mg) by mouth if needed in the morning, at noon, and at bedtime for dizziness or nausea. 20 tablet 11/23/19 25 Active Skin Protectants, Misc. (eucerin) cream Apply topically if needed for dry skin. 396 g 3 09/02/2025 12:45 PM EST 12/22/19 25 026 Active naproxen (Naprosyn) 500 MG tablet TAKE 1 TABLET BY MOUTH TWICE DAILY IN THE MORNING AND AT BEDTIME FOR MILD PAIN 30 tablet 1 09/02/2025 12:45 PM EST 02/25/20 25 Active triamcinolone (Kenalog) 0.1 % cream APPLY TOPICALLY TWICE DAILY IN THE MORNING AND AT BEDTIME NEEDED FOR RASH 30 g 2 09/02/2025 12:45 PM EST 02/25/20 25 Active acetaminophen (Tylenol 8 Hour) 650 MG ER tablet TAKE 1 TABLET BY MOUTH EVERY 8 HOURS NEEDED FOR MILD PAIN. DO NOT BREAK, CRUSH, DISSOLVE OR CHEW. 60 tablet 1 09/02/2025 12:45 PM EST 03/01/20 25 Active atorvastatin (Lipitor) 10 MG tablet TAKE 1 TABLET BY MOUTH AT BEDTIME 90 tablet 1 09/02/2025 12:45 PM EST 05/10/20 25 Active D3 Super Strength 50 MCG (1999 UT) capsule TAKE 1 CAPSULE BY MOUTH EVERY DAY 90 capsule 1 09/02/2025 12:45 PM EST 05/10/20 25 Active Diclofenac Sodium 1 % gel Apply 2 g topically if needed in the morning, at noon, in the evening, and at bedtime (pain). 150 g 3 09/02/2025 12:46 PM EST 06/14/20 25 Active aspirin (Aspirin Low Dose) 81 MG EC tablet Take 1 tablet (81 mg) by mouth Once per day. 90 tablet 1 06/14/20 25 Active Chely-Dryl 25 MG tablet TAKE 1 TABLET BY MOUTH EVERY 6 HOURS NEEDED FOR ITCHING 30 tablet 1 08/30/20 25 Active triamcinolone (Kenalog) 0.1 % ointment APPLY TOPICALLY TO THE AFFECTED AREA(S) TWICE DAILY IN THE MORNING AND AT BEDTIME FOR UP TO 14 DAYS 30 g 1 09/05/20 25 Active albuterol 108 (90 Base) MCG/ACT inhaler INHALE 2 PUFFS BY MOUTH EVERY 4 HOURS NEEDED FOR WHEEZING OR SHORTNESS OF BREATH 18 g 2 09/06/20 25 Active baclofen (Lioresal) 10 MG tablet TAKE 1 TABLET BY MOUTH THREE TIMES DAILY IN THE MORNING, AT NOON, AND AT BEDTIME NEEDED FOR MUSCLE SPASMS 60 tablet 1 09/08/20 25 Active polycarbophil (FiberCon) 625 MG tablet Take 1 tablet (625 mg) by mouth 2 times daily. 180 tablet 3 09/24/20 24 025 docusate sodium (Colace) 100 MG capsule Take 1 capsule (100 mg) by mouth 2 times daily. 180 capsule 3 09/24/20 24 025 baclofen (Lioresal) 10 MG tablet Take 1 tablet (10 mg) by mouth if needed in the morning, at noon, and at bedtime for muscle spasms. 60 tablet 1 09/02/2025 12:46 PM EST 06/14/20 25 025 Discontinued Active Problems Problem Noted Date Diagnosed Date [...] patient in office aspirin 325 mg stat, [facility] and present the case and I sent [...] Encounters Date Type Department Care Team Description 09/28/2025 Orders Only [facility] [address] [facility] [place] [address] Colleen Colon, 09/08/2025 Refill [facility] [address] [facility] [place] [address] Colleen Colon, 09/05/2025 Refill [facility] [address] [facility] [place], [place] [address] Colleen Colon, 09/03/2025 Refill [facility] [address] [facility] [place] [address] Colleen Colon, 08/27/2025 Refill [facility] [address] [facility] [place] [address] Colleen Colon, from Last 3 Months Immunizations Immunization Administration [...] 1960 FIT 1960 FOBT 1960 Sigmoidoscopy 1960 Hepatitis A Vaccines (2 of 2 - Risk 2-dose series) 10/02/2011 04/02/2011 Colonoscopy 10/28/2024 10/28/2014 Colorectal Cancer Screening 10/28/2024 Pap Smear 01/09/2025 01/09/2022 COVID-19 Vaccine ( season) 2025 10/23/2021, 03/22/2021, 02/28/2021 Influenza Vaccine (#1) 2025 , 08/10/2020, 07/02/2019, Additional history exists Diabetes: Hemoglobin A1C 11/04/2025 025, 09/02/2024, 09/08/2023, Additional history exists Alcohol/Substance Use Screening 12/21/2025 12/21/2024 Depression Screening 12/21/2025 12/21/2024, 12/22/19 25 SDOH Screening 12/21/2025 12/21/2024 Tobacco Screening 06/14/2026 06/14/2025 Mammogram 09/28/2026 09/28/2025, 08/21, 10/24/2023, Additional history exists Cervical Cancer Screening 01/09/2027 HPV/Cotest 01/09/2027 01/09/2022, 01/15/2019 Lipid Panel 09/02/2029 09/02/2024, 08/21, 09/02/2022, Additional history exists DTaP/Tdap/Td Vaccines (3 - Td or Tdap) 09/08/2033 09/08/2023, 01/07/2013 Hepatitis B Vaccines Completed 11/30/2012, 05/01/2011, 04/02/2011 Pneumococcal Vaccine: 50+ Years Completed 09/08/2023, 11/30/2012, 11/30/2012 RSV Patients and Patients Aged 60 years [...] Procedure Name Priority Date/Time Associated Diagnosis Comments BI MAMMOGRAM SCREENING TOMOSYNTHESIS BILATERAL Routine 09/28/2025 8:50 AM EST POCT GLYCATED HEMOGLOBIN, TOTAL Routine 11/04/2024 9:26 AM EST Dizziness LIPID PANEL, STANDARD Routine 09/02/2024 8:13 AM EST Other hyperlipidemia [...] Recently Relevant to Health Maintenance Results * BI Mammogram Screening Tomosynthesis Bilateral (09/28/2025 8:50 AM EST) Anatomical Region Laterality Modality Breast Bilateral Mammography 09/28/2025 8:50 AM EST Narrative 09/28/2025 7:23 PM EST [facility] [address] [place], [place] [address] Mammography Report Signed Patient: Shona Denise MR#: [id number] : 1960 Acct:[id number] Age/Sex: 65 / F ADM Date: 09/28/25 Loc: HOGemaMAMMO Attending Dr: Colelen Colon DO Ordering Physician: Colleen Colon DO Results: 1N egative Date of Service: 09/28/25 Follow Up: 1 Year From Orig ina Mammogram Procedure(s): MM tomosynthesis screening BI Accession Number(s): [id number] cc: Colleen Colon DO Reason For Exam: SCREENING EXAMINATION: MM SCREENING DIGITAL BREAST TOMOSYNTHESIS, BILATERAL CLINICAL INFORMATION: Screening. Asymptomatic. COMPARISON: Comparison made to multiple prior, most recent September 13, 2024, and most remote August 13, 2017. TECHNIQUE: Digital breast tomosynthesis is performed in mediolateral oblique and craniocaudal views along with computer-aided detection (CAD). Synthesized 2D images are generated from the tomosynthesis. FINDINGS: BREAST COMPOSITION: There are scattered areas of fibroglandular density. BILATERAL BREASTS: No significant masses, suspicious calcifications or other abnormalities are seen in either breast. MM/MM tomosynthesis screening BI IMPRESSION: BILATERAL BREASTS: Negative, no mammographic evidence of malignancy. Normal interval follow-up is recommended in 12 months. ASSESSMENT: BI-RADS: Category 1: Negative RECOMMENDATION: Routine annual mammography screening. FOLLOW-UP: 1 year F/U This examination should not preclude the clinical evaluation of a suspicious palpable abnormality. This patient's information was entered into a reminder system with a target due date for their next mammogram. Electronically signed by: Jessica Sheikh MD 09/28/2025 07:20 PM [facility] [place] Dictated By: Jessica Sheikh MD Signed By: <Electronically signed by Jessica Sheikh MD in OV> 09/28/25 1920 DD/ 0850 TD/TT: 09/28/25 0910 Granulating Blender: Procedure Note Donotuseinterpreter, Image - [facility] [address] [place] [address] Mammography Report Signed Patient: Katrin Denise#: [id number] : 1960Acct:[id number] Age/Sex: 65 / FADM Date: 09/28/25 Loc: HO.MAMMO Attending Dr: Colleen Colon DO Ordering Physician: Colleen Colonults: 1N egative Date of Service: 09/28/25Follow Up: 1 Year From [facility] ina Mammogram Procedure(s): MM tomosynthesis screening BI Accession Number(s): [id number] cc: Colleen Colon DO Reason For Exam: SCREENING EXAMINATION: MM SCREENING DIGITAL BREAST TOMOSYNTHESIS, BILATERAL CLINICAL INFORMATION: Screening. Asymptomatic. COMPARISON: Comparison made to multiple prior, most recent September 13, 2024, and most remote August 13, 2017. TECHNIQUE: Digital breast tomosynthesis is performed in mediolateral oblique and craniocaudal views along with computer-aided detection (CAD). Synthesized 2D images are generated from the tomosynthesis. FINDINGS: BREAST COMPOSITION: There are scattered areas of fibroglandular density. BILATERAL BREASTS: No significant masses, suspicious calcifications or other abnormalities are seen in either breast. MM/MM tomosynthesis screening BI IMPRESSION: BILATERAL BREASTS: Negative, no mammographic evidence of malignancy. Normal interval follow-up is recommended in 12 months. ASSESSMENT: BI-RADS: Category 1: Negative RECOMMENDATION: Routine annual mammography screening. FOLLOW-UP: 1 year F/U This examination should not preclude the clinical evaluation of a suspicious palpable abnormality. This patient's information was entered into a reminder system with a target due date for their next mammogram. Electronically signed by: Jessica Sheikh MD 09/28/2025 07:20 PM EST Dictated By: Jessica Sheikh MD Signed By: <Electronically signed by Jessica Sheikh MD in OV> 09/28/25 1920 DD/ 0850 TD/TT: 09/28/25 0910 Granulating Blender: Colleen Colon DO IMG BI PROCEDURES Final Resu lt * POCT HGB A1C (11/04/2024 9:26 AM EST) Hemoglobin A1C 5.7 4.0 - 6.0 % QC Media Lot # [id number] Lot# Expiration Date Blood 11/04/2024 9:26 AM EST us Caryn Lopez MD POINT OF CARE TEST ENTER /EDIT ORDERABLES Final Result * Lipid Panel, Standard (09/02/2024 8:13 AM EST) Triglycerides 90 <150 mg/dL [facility] Comment:Desirable Triglyceri de: less than 150 mg/dLBorderline High Triglyceride 150-199 mg/dLHigh Triglyceride: 200-499 mg/dLVery High Triglyceride: greater than or equal to 5OO mg/dL Cholesterol 163 <200 mg/dL [facility] Comment:Desirable Cholestero l: less than 200 mg/dLBorderline High Cholesterol: 200-239 mg/dLHigh Cholesterol: greater than 239 mg/dL LDL Cholesterol Calculated 92 <100 mg/dL [facility] Comment:Desirable LDL: less than 100 mg/dLNear Optimal/Above Optimal LDL: 110- 129 mg/dLBorderline High LDL: 130-159 mg/dLHigh LDL: 160-189 mg/dLVery High LDL: greater than or equal to 190 mg/dL HDL Cholesterol 53 >40 mg/dL [facility] Comment:Desirable HDL: great er than 40 mg/dL Note: This HDL assay may give artificially low results in patients with liver disease. Blood Venous blood specimen / Unknown 09/02/2024 8:13 AM EST 09/02/2024 10:53 AM EST us Colleen Colon DO LAB BLOOD ORDERABLES Final R esult [facility] [address] [place] [phone] * THINPREP TIS PAP (01/09/2022 10:10 [...] along with historic and current clinical information. Comment: SEE COMMENT [facility] Comment: This Pap test has been evaluated with computer assisted technology. Microscopic features suggestive of lubricant. Lubricant jellies may interfere with slide preparation; their use is not recommended. Salesperson Hearing Aids : SEE COMMENT [facility] Comment: [facility], CT(ASCP) CT screening location: [place] [address] Interpretation/R esult: Negative for intraepithelial lesion or malignancy. [facility] LMP: NONE GIVEN [facility] Prev. BX: NONE GIVEN [facility] Prev. PAP: NONE GIVEN [facility] Review Salesperson Hearing Aids : SEE COMMENT [facility] Comment: RK, CT(ASCP) CT screening location: [place] [address] SOURCE: None given [facility] Statement Of Adequacy: SEE COMMENT [facility] Comment: Satisfactory for evaluation. Endocervical/transformation zone component present. 01/09/2022 10:1 0 AM EDT us Colleen Colon DO LAB PATHOLOGY ORDERABLES Fin al Result [facility] [address] * HPV mRNA E6/E7 REFLEX TO HPV 16, 18/45 (01/09/2022 10:10 AM EDT) HPV nRNA E6/E7 Not Detected Not Detected [facility] Comment: Methodology: Croze Cutter Helper-Mediated Amplification This assay detects E6/E7 viral messenger RNA (mRNA) from 14 high-risk HPV types (16,18,31,33,35,39,45,51,52,56,58,59,66,68). The analytical performance characteristics of this assay have been determined by [employer]. The modifications have not been cleared or approved by the FDA. This assay has been validated pursuant to the CLIA regulations and is used for clinical purposes. For additional information, please refer to http://education.V[employer] Chic/faq/CUK067g6 (This link if provided for information/ educational purposes only.) 01/09/2022 10:1 0 AM EDT Colleen Colon DO LAB CYTOLOGY ORDERABLES Viviana jocelyn Result [facility] [address] * Hm Colonoscopy (10/28/2014 8:25 AM EST) Historical Provider MD HEALTH MAINTENANCE Final Result from Last 3 Months or Most Recently Relevant to Health Maintenance Insurance [address] [address] [facility] Care Teams Still Operator Batch Or Continuous Relationship Specialty Start Date End Date Colleen Colon DO [address] [place] [address] PCP - General Family Medicine 07/03/15 Kanika Robison Industrial EconomistNicking Machine Operator 11/03/24
== END 2025-10-06 09:49 | disposition home or self-care (01) ==
LOC: HO.HCS 09:12
PROVIDERS: PCP Family Medicine; Visit Provider Nurse Practitioner Family
DX: R07.2 Precordial pain (principal); Z86.79 Personal history of other diseases of the circulatory system; R00.1 Bradycardia, unspecified
CPT/HCPCS: 99214; G2211

== ENCOUNTER → 2025-10-06 09:11 | Outpatient (BNVA) | payer OTHER, SELFPAY | PROVIDERS: PCP Family Medicine; Visit Provider Nurse Practitioner Family | DX: R07.2 Precordial pain (principal); R00.1 Bradycardia, unspecified; Z86.79 Personal history of other diseases of the circulatory system | CPT/HCPCS: 99212 ==